=== PATIENT | female | born 1955 | race Caucasian/White ===

== ENCOUNTER 2016-10-15 08:30 | Outpatient (CLI) | payer OTHER | END 2016-10-15 08:31 | disposition home or self-care (01) | DX: E78.5 Hyperlipidemia, unspecified (principal); R74.8 Abnormal levels of other serum enzymes; E11.9 Type 2 diabetes mellitus without complications; D64.9 Anemia, unspecified; Z79.899 Other long term (current) drug therapy ==

== ENCOUNTER 2016-10-31 12:04 | Outpatient (CLI) | payer OTHER | END 2016-10-31 12:05 | disposition home or self-care (01) | DX: C56.9 Malignant neoplasm of unspecified ovary (principal) ==

== ENCOUNTER 2016-11-08 08:46 | Outpatient (CLI) | payer OTHER ==
--- NOTE | 2016-11-11 13:13 | Mammography Report ---
DIGITAL SCREENING MAMMOGRAM: 11/08/2016 CLINICAL INDICATION: A 61-year-old with family history of breast cancer for screening. COMPARISON: 06/2014, 10/2012, 07/2011. TECHNIQUE: Routine CC and MLO projections were obtained of the breasts. FINDINGS: Parenchymal tissue within the breasts is predominantly fatty replaced. There are no domina nt masses, suspicious microcalcifications, or secondary signs of malignancy. In comparison to the pre vious studies, there are no significant changes. IMPRESSION: NO MAMMOGRAPHIC EVIDENCE OF MALIGNANCY. NO SIGNIFICANT INTERVAL CHANGES. RECOMMENDATION: Screening mammography is recommended annually. BIRADS category 1 - negative. STANDARD QUALIFYING STATEMENTS 1. This examination was reviewed with the aid of Computed-Aided Detection (CAD). 2. A negative or benign imaging report should not delay biopsy if clinically suspicious findings are present. Consider surgical consultation if warranted. More than 5% of cancers are not identified by i maging. 3. Dense breasts may obscure an underlying neoplasm. JOB #: [id number] EXT JOB #:[id number]
== END 2016-11-08 08:47 | disposition home or self-care (01) ==
LOC: DI 08:46
PROVIDERS: ATTEND Physician Assistant Medical
DX: Z12.31 Encounter for screening mammogram for malignant neoplasm of breast (principal); Z80.3 Family history of malignant neoplasm of breast
CPT/HCPCS: 77067

== ENCOUNTER 2016-11-20 08:11 | Outpatient (CLI) | payer OTHER ==
--- NOTE | 2016-11-20 11:59 | DEXA Report ---
DEXA SCAN: 11/20/2016 CLINICAL HISTORY: Postmenopausal. TECHNIQUE: Dual energy x-ray absorptiometry (DXA) was performed on a [employer] system. Regions measured are the AP spine, femoral neck, and, if needed, forearm. COMPARISON: None. In accordance with the International Society for Clinical Densitometry (ISCD) guidelines, data from previous exams may be reanalyzed using current recommendations and techniques. This is done to allow a more accurate basis for comparison with the current study. FINDINGS: L1 through L4 T-score is 1.4. This is within normal limits according World Health Organization guidelines. Femoral neck T-score is -2.0. This is compatible with osteopenia according to World Health Organization guidelines. Total hip T-score is -1.6. This is compatible with osteopenia according to World Health Organization guidelines. The data for the lumbar spine is as follows: REGION BMD (g/cm/cm) T-SCORE Z-SCORE L1 1.214 0.7 0.7 L2 1.388 1.6 1.6 L3 1.436 2.0 2.0 L4 1.335 1.1 1.2 TOTAL 1.343 1.4 1.4 NOTE: All evaluable vertebrae are used for classification. The data for the hip is as follows: REGION BMD (g/cm/cm) T-SCORE Z-SCORE Neck 0.755 -2.0 -1.5 TOTAL 0.809 -1.6 -1.5 NOTE: The femoral neck or total proximal femur, whichever is lowest, is used for classification. IMPRESSION: THE WHO CLASSIFICATION BASED ON THE INTERNATIONAL REFERENCE STANDARD IS OSTEOPENIA. THE FRACTURE RISK IS INCREASED. RECOMMENDATION: Patients with diagnosis of osteoporosis or osteopenia should have regular bone mineral density assessment. For those eligible for Medicare, routine testing is allowed once every 2 years. Testing frequency can be increased for patients who have rapidly progressing disease or for those who are receiving medical therapy to restore bone mass. COMMENT: World Health Organization (WHO) definitions for osteoporosis and osteopenia: NORMAL BMD: T-score at -1.0 or higher, fracture risk is low. OSTEOPENIA BMD: T-score between -1.0 and -2.5, fracture risk is increased. OSTEOPOROSIS BMD: T-score at -2.5 or lower, fracture risk high. National Osteoporosis Foundation recommends: 1. Obtain adequate dietary calcium (at least 1200 mg per day) and vitamin D (400 -800 international units per day). 2. Participate, as appropriate, in regular weightbearing and muscle- strengthening exercise. 3. Avoid tobacco use and reduce alcohol and caffeine intake. 4. For more detailed information see the website at www.NOF.org. MTDD
== END 2016-11-20 08:12 | disposition home or self-care (01) ==
LOC: DI 08:11
PROVIDERS: ATTEND Physician Assistant Medical
DX: M85.88 Other specified disorders of bone density and structure, other site (principal)
CPT/HCPCS: 77080

== ENCOUNTER 2016-12-12 10:45 | Outpatient (CLI) | payer OTHER | END 2016-12-12 10:46 | disposition home or self-care (01) | LOC: LAB.WCP 10:45 | PROVIDERS: ATTEND Physician Assistant Medical | DX: N39.0 Urinary tract infection, site not specified (principal) | CPT/HCPCS: 87086 ==

== ENCOUNTER 2017-04-10 10:20 | Outpatient (CLI) | payer OTHER ==
[2017-04-10 13:32] LABS: BASOPHILS % (AUTO) 0.4 %; EOSINOPHILS # (AUTO) 0.2 10^3/uL (0.0-0.7); EOSINOPHILS % (AUTO) 3.1 %; HCT - HEMATOCRIT 41.8 % (37.0-47.0); HGB - HEMOGLOBIN 13.9 g/dL (12.0-16.0); LYMPHOCYTES # (AUTO) 1.2 10^3/uL (1.5-3.5); LYMPHOCYTES % (AUTO) 16.1 %; MEAN CORPUSCULAR HEMOGLOBIN 28.3 pg (27.0-31.0); MEAN CORPUSCULAR HGB CONC 33.3 g/dL (32.0-36.0); MEAN CORPUSCULAR VOLUME 84.9 fL (81.0-99.0); MEAN PLATELET VOLUME 10.3 fL (7.9-10.8); MONOCYTES # (AUTO) 0.5 10^3/uL (0.0-1.0); MONOCYTES % (AUTO) 6.3 %; NEUTROPHILS # (AUTO) 5.3 10^3/uL (1.5-6.6); NEUTROPHILS % (AUTO) 74.1 %; NUCLEATED RED BLOOD CELLS AUTO 0.1 /100WBC; RED BLOOD COUNT 4.92 10^6/uL (4.20-5.40); RED CELL DISTRIBUTION WIDTH 14.7 % (12.0-15.0); UNCORRECTED WHITE BLOOD COUNT 7.2 x10^3/uL; WHITE BLOOD COUNT 7.2 x10^3/uL (4.8-10.8)
[2017-04-10 13:41] LABS: ALBUMIN/GLOBULIN RATIO 1.3 (1.0-2.2); BILIRUBIN,TOTAL 0.5 mg/dL (0.2-1.0); CALCIUM 9.3 mg/dL (8.5-10.3); CREATININE 1.1 mg/dL (0.4-1.0); POTASSIUM 4.5 mmol/L (3.5-5.0); TOTAL PROTEIN 7.7 g/dL (6.7-8.2)
== END 2017-04-10 10:21 | disposition home or self-care (01) ==
LOC: LAB.WCP 10:20
PROVIDERS: ATTEND Physician Assistant Medical
DX: K76.0 Fatty (change of) liver, not elsewhere classified (principal); Z51.81 Encounter for therapeutic drug level monitoring; Z79.899 Other long term (current) drug therapy
CPT/HCPCS: 36415; 80053; 85025

== ENCOUNTER 2017-05-01 11:35 | Outpatient (CLI) | payer OTHER ==
[2017-05-01 19:49] LABS: BASOPHILS # (AUTO) 0.1 10^3/uL (0.0-0.1); BASOPHILS % (AUTO) 0.6 %; EOSINOPHILS # (AUTO) 0.5 10^3/uL (0.0-0.7); HCT - HEMATOCRIT 41.4 % (37.0-47.0); HGB - HEMOGLOBIN 13.3 g/dL (12.0-16.0); LYMPHOCYTES # (AUTO) 1.4 10^3/uL (1.5-3.5); LYMPHOCYTES % (AUTO) 12.3 %; MEAN CORPUSCULAR HEMOGLOBIN 28.1 pg (27.0-31.0); MEAN CORPUSCULAR HGB CONC 32.2 g/dL (32.0-36.0); MEAN CORPUSCULAR VOLUME 87.3 fL (81.0-99.0); MEAN PLATELET VOLUME 10.6 fL (7.9-10.8); MONOCYTES # (AUTO) 0.9 10^3/uL (0.0-1.0); MONOCYTES % (AUTO) 7.6 %; NEUTROPHILS # (AUTO) 8.6 10^3/uL (1.5-6.6); NEUTROPHILS % (AUTO) 75.5 %; RED BLOOD COUNT 4.74 10^6/uL (4.20-5.40); RED CELL DISTRIBUTION WIDTH 14.9 % (12.0-15.0); UNCORRECTED WHITE BLOOD COUNT 11.5 x10^3/uL; WHITE BLOOD COUNT 11.5 x10^3/uL (4.8-10.8)
[2017-05-01 20:38] LABS: ALBUMIN/GLOBULIN RATIO 1.2 (1.0-2.2); BILIRUBIN,TOTAL 0.7 mg/dL (0.2-1.0); CALCIUM 8.7 mg/dL (8.5-10.3); CREATININE 1.1 mg/dL (0.4-1.0); POTASSIUM 4.2 mmol/L (3.5-5.0); TOTAL PROTEIN 7.4 g/dL (6.7-8.2)
== END 2017-05-01 11:36 | disposition home or self-care (01) ==
LOC: LAB.WCP 11:35
PROVIDERS: ATTEND Physician Assistant Medical
DX: R79.9 Abnormal finding of blood chemistry, unspecified (principal); D69.6 Thrombocytopenia, unspecified; C56.9 Malignant neoplasm of unspecified ovary
CPT/HCPCS: 36415; 80053; 85025; 86304

== ENCOUNTER 2017-05-01 13:40 | Outpatient (CLI) | payer OTHER ==
--- NOTE | 2017-05-01 19:29 | XRAY Report ---
TWO VIEW CHEST: 05/01/2017 CLINICAL INDICATION: Acute bronchitis. COMPARISON: 01/04/2016 Frontal and lateral views of the chest demonstrate a normal cardiac silhouette. The lungs are hyperi nflated, but clear. No effusion or pneumothorax is present. IMPRESSION: HYPERINFLATION. NO EVIDENCE OF ACUTE CARDIOPULMONARY DISEASE. JOB #: [id number] EXT JOB #:[id number]
== END 2017-05-01 13:41 | disposition home or self-care (01) ==
LOC: DI 13:40
PROVIDERS: ATTEND Physician Assistant Medical
DX: J20.9 Acute bronchitis, unspecified (principal); R79.9 Abnormal finding of blood chemistry, unspecified; D69.6 Thrombocytopenia, unspecified; C56.9 Malignant neoplasm of unspecified ovary
CPT/HCPCS: 36415; 71020; 80053; 85025; 86304

== ENCOUNTER 2018-11-03 20:37 | Emergency (ER) | payer OTHER ==
[2018-11-03 20:47] VITALS: BP 161/97
--- NOTE | 2018-11-03 20:52 | ED Physician Documentation ---
PD HPI UPPER EXT INJURY - Stated complaint Stated Complaint: LT HAND LAC/INJ - Chief complaint Chief Complaint: Laceration - History obtained from History obtained from: Patient - History of Present Illness Location: Left, Finger (little finger dorsal MCP area) Type of injury: Laceration (she cut her hand while washing out a glass. No FB per patient. Has an avulsion of skin dorsal MCP, but main issue is that it keeps bleeding. No numbness nor weakness.) Where injury occurred: Home Timing - onset: Today Worsened by: Moving, Palpating Associated symptoms: No: Weakness, Numbness Contributing factors: No: Anticoagulated, Prior ortho surgery Review of Systems Skin: reports: Laceration (s) Neurologic: denies: Focal weakness, Numbness PD PAST MEDICAL HISTORY - Past Medical History Cardiovascular: Hypertension, High cholesterol Respiratory: Sleep apnea, Other Endocrine/Autoimmune: Type 2 diabetes GI: GERD, Diverticulitis : Other HEENT: None Psych: Depression Musculoskeletal: Osteoarthritis, Fibromyalgia, Osteopenia, Chronic back pain Derm: Eczema - Past Surgical History Past Surgical History: Yes General: Cholecystectomy Ortho: Arthroscopic surgery, 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, 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 - Present Medications Home Medications: Ambulatory Orders Medication Instructions Recorded Confirmed Albuterol Sulf [Ventolin Hfa 2 puffs INH Q4HR PRN 12/25/16 11/03/18 Inhaler] Ipratropium/Albuterol Sulfate 1 amp NEB QID PRN 12/25/16 11/03/18 [Iprat-Albut 0.5-3(2.5) mg/3 ml] Losartan Potassium 25 mg PO DAILY 12/25/16 11/03/18 Metformin HCl [Glucophage Xr] 2 tab PO DAILY 12/25/16 11/03/18 - Allergies Allergies/Adverse Reactions: Allergies Allergy/AdvReac Type Severity Reaction Status Date / Time amoxicillin Allergy Hives Verified 11/03/18 20:47 latex Allergy Hives Verified 11/03/18 20:47 lisinopril Allergy Unknown Verified 11/03/18 20:47 sulfamethoxazole Allergy Hives Verified 11/03/18 20:47 [From ] trimethoprim [From ] Allergy Hives Verified 11/03/18 20:47 - Social History Does the pt smoke?: No Smoking Status: Never smoker Does the pt drink ETOH?: Yes Does the pt have substance abuse?: No - Immunizations Immunizations are current?: Yes - POLST Patient has POLST: No PD ED PE NORMAL - Vitals Vital signs reviewed: Yes - General General: Alert and oriented X 3, No acute distress, Well developed/nourished - Derm Derm: Normal color, Warm and dry - Extremities Extremities: Other (The right little finger dorsally on the ulnar side of the MCP shows a 1 cm diameter avulsion with the central part being full-thickness. It does expose the underlying tendon but there is no laceration of the tendon. She has good sensation color and capillary refill in the finger. She has full extension without any pain. Examination of the wound through full range of motion of the finger does not show any tendon injury and there is no foreign body. There is slight oozing of blood from capillaries in the edges.) - Neuro Neuro: Alert and oriented X 3, No motor deficit, No sensory deficit Results - Vitals Vitals: Vital Signs - 24 hr 11/03/18 20:39 Temperature 36.3 C L Heart Rate 100 Respiratory 16 Rate Blood Pressure 161/97 H O2 Saturation 96 Oxygen O2 Source Room air Procedures - Laceration (location) dorsal left little finger MCP Length in cm: 1 Wound type: Into subcut fat, Clean, Other (rounded avulsion of skin) Neurovascular status: Sensory intact, Motor intact, Vascular intact Tendon involvement: Tendon intact (it is exposed though, but not injured) Anesthesia: Lidocaine 2% Wound Preparation: Irrigated copiously NS, Wound explored, To the base. No: FB identified Skin layer closure: Nylon, Interrupted, Size #-0 - enter number (4), Sutures - enter # (6) Other: Patient tolerated well, No complications, Neurovascular intact, Dressing applied, Tetanus UTD Complexity: Simple PD MEDICAL DECISION MAKING - ED course Complexity details: considered differential (The wound is small but it does expose the underlying tendon and as such it should be closed to promote better healing. I discussed this with her and that it will create a slight dogear at one corner and she is aware of the benefits of suturing at.), d/w patient Departure - Departure Disposition: 01 Home, Self Care Clinical Impression: Finger laceration Qualifiers: Encounter type: initial encounter Finger: little finger Damage to nail status: without damage Foreign body presence: without foreign body Laterality: left Qualified Code(s): S61.217A - Laceration without foreign body of left little finger without damage to nail, initial encounter Condition: Stable Record reviewed to determine appropriate education?: Yes Instructions: ED Laceration Hand Follow-Up: Ruthie Lima PA-C [Primary Care Provider] - Comments: It is okay to wash and shower. Clean off the wound twice a day with soap and water, or peroxide and water. Apply some antibiotic ointment to it to keep it moist. Also to watch for signs of infection such as purulence, redness or in creasing pain. Return to your primary care or the ER at the specified time for suture removal. Suture removal 8 to 10 days. Discharge Date/Time: 11/03/18 21:30
== END 2018-11-03 21:30 | disposition home or self-care (01) ==
LOC: ED 20:37
DX: S61.217A Laceration without foreign body of left little finger without damage to nail, initial encounter (principal); W25.XXXA Contact with sharp glass, initial encounter; Y93.G1 Activity, food preparation and clean up; Y92.000 Kitchen of unspecified non-institutional (private) residence as the place of occurrence of the external cause; I10 Essential (primary) hypertension; E11.9 Type 2 diabetes mellitus without complications; Z79.84 Long term (current) use of oral hypoglycemic drugs
CPT/HCPCS: 12001; 99282; 99283

== ENCOUNTER 2018-11-12 09:57 | Outpatient (CLI) | payer OTHER ==
[2018-11-12 14:09] LABS: BASOPHILS % (AUTO) 0.6 %; EOSINOPHILS # (AUTO) 0.2 10^3/uL (0.0-0.7); EOSINOPHILS % (AUTO) 3.3 %; HGB - HEMOGLOBIN 14.3 g/dL (12.0-16.0); LYMPHOCYTES # (AUTO) 1.4 10^3/uL (1.5-3.5); LYMPHOCYTES % (AUTO) 19.3 %; MEAN CORPUSCULAR HEMOGLOBIN 28.1 pg (27.0-31.0); MEAN CORPUSCULAR HGB CONC 32.5 g/dL (32.0-36.0); MEAN CORPUSCULAR VOLUME 86.6 fL (81.0-99.0); MEAN PLATELET VOLUME 10.1 fL (7.9-10.8); MONOCYTES # (AUTO) 0.5 10^3/uL (0.0-1.0); MONOCYTES % (AUTO) 6.6 %; NEUTROPHILS # (AUTO) 5.1 10^3/uL (1.5-6.6); NEUTROPHILS % (AUTO) 70.2 %; PLT - PLATELET COUNT 193 10^3/uL (130-450); RED BLOOD COUNT 5.09 10^6/uL (4.20-5.40); RED CELL DISTRIBUTION WIDTH 14.9 % (12.0-15.0); WHITE BLOOD COUNT 7.2 x10^3/uL (4.8-10.8)
[2018-11-12 14:33] LABS: ALBUMIN 4.2 g/dL (3.2-5.5); ALBUMIN/GLOBULIN RATIO 1.3 (1.0-2.2); ALKALINE PHOSPHATASE 118 IU/L (42-121); ALT ALANINE AMINOTRANSFERASE 37 IU/L (10-60); AST ASPARTATE AMINOTRANSFERASE 31 IU/L (10-42); BILIRUBIN,TOTAL 0.5 mg/dL (0.2-1.0); BUN - BLOOD UREA NITROGEN 19 mg/dL (6-20); CALCIUM 9.2 mg/dL (8.5-10.3); CARBON DIOXIDE - CO2 22 mmol/L (21-32); CHLORIDE 106 mmol/L (101-111); CHOL/HDL RATIO 3.4 (<4.4); CHOLESTEROL 205 mg/dL; GFR - MDRD 56 (>89); GLUCOSE 182 mg/dL (70-100); HDL CHOLESTEROL 61 mg/dL; LDL CHOLESTEROL,CALCULATED 121 mg/dL; SODIUM 139 mmol/L (135-145); TOTAL PROTEIN 7.5 g/dL (6.7-8.2); VLDL CHOLESTEROL 23 mg/dL
== END 2018-11-12 09:58 | disposition home or self-care (01) ==
LOC: LAB.WCP 09:57
PROVIDERS: ATTEND Physician Assistant Medical
DX: E11.9 Type 2 diabetes mellitus without complications (principal); D64.9 Anemia, unspecified
CPT/HCPCS: 36415; 80053; 80061; 81599; 83036; 83721; 84443; 85025

== ENCOUNTER 2018-12-06 10:43 | Outpatient (CLI) | payer OTHER | END 2018-12-06 10:44 | disposition home or self-care (01) | LOC: DI 10:43 | PROVIDERS: ATTEND Physician Assistant Medical | DX: C56.9 Malignant neoplasm of unspecified ovary (principal) | CPT/HCPCS: 36415; 86304 ==

== ENCOUNTER 2018-12-06 10:44 | Outpatient (CLI) | payer OTHER ==
--- NOTE | 2018-12-07 02:12 | Ultrasound Report ---
Reason: SOFT TISSUE MASS,OVARIAN CANCER Procedure Date: 12/06/2018 Accession Number: [id number] / [id number] Procedure: US - Pelvic w/Transvaginal CPT Code: FULL RESULT: EXAM: PELVIC WITH TRANSVAGINAL ULTRASOUND EXAM DATE: 12/06/2018 11:30 AM. CLINICAL HISTORY: Bloating, feeling full for 1 month. History of right ovarian cancer in 2013. 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 and oophorectomy. SOFT TISSUE MASS, OVARIAN CANCER. COMPARISON: ABDOMEN/PELVIS W/ 05/27/2013 9:31 AM. TECHNIQUE: Realtime transabdominal and transvaginal pelvic scans performed with static image documentation. FINDINGS: Status post hysterectomy and oophorectomy. No abnormalities are seen. No evidence for pelvic mass. No free fluid or fluid collections. IMPRESSION: Status post hysterectomy and oophorectomy. No abnormalities are seen. No evidence for pelvic mass. No free fluid or fluid collections. RADIA
--- NOTE | 2018-12-07 08:43 | Ultrasound Report ---
Reason: SOFT TISSUE MASS Procedure Date: 12/06/2018 Accession Number: [id number] / [id number] Procedure: US - Ext Limited Non Vascular CPT Code: FULL RESULT: EXAM: RIGHT UPPER EXTREMITY ULTRASOUND - LIMITED EXAM DATE: 12/06/2018 12:00 PM. CLINICAL HISTORY: Soft tissue mass. COMPARISON: EXT LIMITED NON VASCULAR 01/19/2016. TECHNIQUE: Real-time scanning was performed with static images obtained. FINDINGS: Limited grayscale and color Doppler ultrasound of the posterior upper right arm is performed. In the subcutaneous adipose tissues superficial to the triceps musculature is a 9.2 cm x 4.1 cm mass without evidence of violation of tissue planes into the muscular compartment and in echotexture similar to surrounding subcutaneous adipose tissue, most suggestive of a lipoma. IMPRESSION: Fatty mass as described. Lipoma and the rare entity of liposarcoma are radiologically indistinguishable. RADIA
== END 2018-12-06 10:45 | disposition home or self-care (01) ==
LOC: DI 10:44
PROVIDERS: ATTEND Physician Assistant Medical
DX: E65 Localized adiposity (principal); Z85.43 Personal history of malignant neoplasm of ovary; Z90.710 Acquired absence of both cervix and uterus; Z90.722 Acquired absence of ovaries, bilateral
CPT/HCPCS: 36415; 76830; 76856; 76882; 86304

== ENCOUNTER 2018-12-12 11:53 | Outpatient (CLI) | payer OTHER ==
--- NOTE | 2018-12-14 05:07 | XRAY Report ---
Reason: STERNAL CHEST PAIN Procedure Date: 12/12/2018 Accession Number: [id number] / [id number] Procedure: XR - Ribs w/PA Chest LT CPT Code: FULL RESULT: EXAM: LEFT RIB RADIOGRAPHY EXAM DATE: 12/12/2018 12:06 PM. CLINICAL HISTORY: Sternal chest pain. COMPARISON: CHEST 2 VIEW PA/LAT 05/01/2017 1:45 PM. TECHNIQUE: 1 view of the chest and 2 views of the ribs. FINDINGS: Bones: Normal. No fracture or bone lesion. Lungs: No focal opacities. No pneumothorax. No pleural effusions. Mediastinum: Heart and mediastinal contours are unremarkable. Other: Moderate arthritic changes of the right shoulder. IMPRESSION: Negative chest and rib radiography. RADIA
== END 2018-12-12 11:54 | disposition home or self-care (01) ==
LOC: DI 11:53
PROVIDERS: ATTEND Physician Assistant Medical
DX: R07.89 Other chest pain (principal)

== ENCOUNTER 2019-01-14 14:33 | Outpatient (CLI) | payer OTHER ==
--- NOTE | 2019-01-14 20:25 | XRAY Report ---
Reason: LEFT ARM PAIN Procedure Date: 01/14/2019 Accession Number: [id number] / [id number] Procedure: WCP - Forearm LT CPT Code: FULL RESULT: EXAM: LEFT FOREARM RADIOGRAPHY EXAM DATE: 01/14/2019 03:01 PM. CLINICAL HISTORY: Left arm pain. Pain in midshaft of forearm. No known injury. COMPARISON: ELBOW 3 VIEW LT 08/21/2014 7:53 PM. TECHNIQUE: 2 views. FINDINGS: Bones: There is new absence of the radial head which presumably is due to surgical resection, but correlation with clinical/surgical history is recommended. Lucency within the proximal most aspect of the radius, in the region of the radial neck, may be postoperative in nature. Erosive or destructive change is not definitely excluded and clinical correlation recommended. No evidence of fracture or other definite bone lesions. Joints: Elbow degenerative joint disease appears progressed. No subluxation. No definite joint effusion. Degenerative disease of the wrist demonstrated, greatest at the first carpometacarpal joint. Soft Tissues: Normal. No soft tissue swelling. IMPRESSION: 1. Absence of the radial head (new compared with 08/21/2014) and lucency within the radial neck region is presumably postoperative in nature but correlation with the clinical and surgical history is recommended. 2. Elbow and wrist degenerative disease. RADIA
== END 2019-01-14 23:59 | disposition home or self-care (01) ==
LOC: DI.WCP 14:33
PROVIDERS: ATTEND Family Medicine
DX: M19.022 Primary osteoarthritis, left elbow (principal); M19.032 Primary osteoarthritis, left wrist

== ENCOUNTER 2019-06-18 16:57 | Emergency (ER) | payer OTHER ==
--- NOTE | 2019-06-18 20:29 | ED Physician Documentation ---
PD HPI SKIN - Stated complaint Stated Complaint: LUMP RT SIDE OF HEAD - Chief complaint Chief Complaint: Wound - History obtained from History obtained from: Patient - History of Present Illness Timing - onset: How many days ago (3) Timing - duration: Days (3) Timing - details: Gradual onset, Constant Pain level now: 8 Location: Scalp Quality / character: Painful, Raised, Swelling Worsened by (comment): COMMENT (palpation) Associated symptoms: No: Fever Similar symptoms before: Has not had sx before Recently seen: Not recently seen - Additional information Additional information: c/o painful swelling, "lump" (per patient) on right occipital scalp x 3 days. 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, 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, 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, 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 - Present Medications Home Medications: Ambulatory Orders Medication Instructions Recorded Confirmed Losartan Potassium 50 mg PO DAILY 12/25/16 02/19/19 Metformin HCl [Glucophage Xr] 2 tab PO DAILY 12/25/16 02/19/19 Atorvastatin Calcium 10 mg PO QPM 02/11/19 02/19/19 Tramadol HCl 50 mg PO BID PRN 02/11/19 02/19/19 HYDROcod/ACETAM 5/325 [Orange 5/325] 1 each PO Q4H #5 tablet 02/19/19 Doxycycline Hyclate 100 mg PO BID #20 capsule 06/18/19 - Allergies Allergies/Adverse Reactions: Allergies Allergy/AdvReac Type Severity Reaction Status Date / Time amoxicillin Allergy Hives Verified 06/18/19 17:14 latex Allergy Hives Verified 06/18/19 17:14 liraglutide [From Victoza] Allergy Unknown Verified 06/18/19 17:14 sulfamethoxazole Allergy Hives Verified 06/18/19 17:14 [From Septra] trimethoprim [From Septra] Allergy Hives Verified 06/18/19 17:14 lisinopril AdvReac Unknown Verified 06/18/19 17:14 - Social History Does the pt smoke?: No Smoking Status: Never smoker Does the pt drink ETOH?: Yes Does the pt have substance abuse?: No - Immunizations Immunizations are current?: Yes - POLST Patient has POLST: No PD ED PE NORMAL - Vitals Vital signs reviewed: Yes - General General: Alert and oriented X 3, No acute distress, Well developed/nourished PD ED PE EXPANDED - HEENT HEENT Visual: 1 - swelling (small (1cm diameter) swelling, tenderness, with faint surrounding erythema), tenderness Results - Vitals Vitals: Vital Signs - 24 hr 06/18/19 17:03 Temperature 37 C Heart Rate 120 H Respiratory 18 Rate Blood Pressure 174/70 H O2 Saturation 100 Oxygen O2 Source Room air PD MEDICAL DECISION MAKING - ED course Complexity details: considered differential, d/w patient Departure - Departure Disposition: 01 Home, Self Care Clinical Impression: Cellulitis Condition: Good Instructions: ED Staph Infec Abx Tx Only, ED Infec Skin Cellulitis Follow-Up: Ruthie Lima PA-C [Primary Care Provider] - (3-4 days if not improving) Prescriptions: Doxycycline Hyclate 100 mg PO BID #20 capsule
[2019-06-18] MEDS ORDERED: DOXYCYCLINE 100 MG TABLET PO STA (20:45)
[2019-06-18 20:56] VITALS: BP 150/70
== END 2019-06-18 20:54 | disposition home or self-care (01) ==
LOC: ED 16:57
DX: L03.811 Cellulitis of head [any part, except face] (principal); I10 Essential (primary) hypertension; E11.9 Type 2 diabetes mellitus without complications; Z79.84 Long term (current) use of oral hypoglycemic drugs
CPT/HCPCS: 99282; 99283; A9270

== ENCOUNTER 2020-01-25 14:45 | Outpatient (CLI) | payer OTHER ==
--- NOTE | 2020-01-25 15:35 | XRAY Report ---
PROCEDURE: Elbow 3 View LT INDICATIONS: LEFT ARM PAIN TECHNIQUE: 3 views of the elbow were acquired. COMPARISON: None FINDINGS: Bones: There is deformity of the proximal radius with nonvisualization of the radial head. No suspici ous bony lesions. Soft tissues: No elbow joint effusion. No suspicious soft tissue calcifications. IMPRESSION: Presumed postsurgical proximal radial head changes. No visualized acute fracture or dislocation. [place] aurora, occult injury cannot be excluded. Recommend short interval imaging follow-up in 7-10 days as cli nically indicated for additional evaluation. Reviewed by: Stephanie Leon MD on 01/25/2020 3:33 PM PDT Approved by: Stephanie Leon MD on 01/25/2020 3:33 PM PDT Station ID: [id number]
== END 2020-01-25 14:46 | disposition home or self-care (01) ==
LOC: DI.WCP 14:45
PROVIDERS: ATTEND Physician Assistant Medical
DX: M79.602 Pain in left arm (principal)

== ENCOUNTER 2020-02-15 12:49 | Outpatient (CLI) | payer OTHER ==
--- NOTE | 2020-02-15 14:09 | DEXA Report ---
PROCEDURE: Dexa Spine and/or Hip INDICATIONS: POSTMENOPAUSAL TECHNIQUE: Dual energy x-ray absorptiometry (DXA) was performed on a [employer] System. Regions measur ed are the AP Spine, femoral neck, and if needed forearm. COMPARISON: None. FINDINGS: Lumbar Spine: Bone Mineral Density 1.285 g/cm/cm,T score 0.9, compared to 1.4. Normal bone density. Left Hip: Bone Mineral Density 0.835 g/cm/cm,T score -1.4, compared to -1.6. Mild osteopenia. Left Femoral Neck: Bone Mineral Density 0.781 g/cm/cm, T score -1.8, compared to -2.0. Moderate osteopenia. (T score greater or equal to -1.0: NORMAL) (T score from -1.1 to -2.4: OSTEOPENIA) (T score less than or equal to -2.5 to: OSTEOPOROSIS) Impression: Minimally improved moderate osteopenia in the left hip and femoral neck. Patients with diagnosis of osteoporosis or osteopenia should have regular bone mineral density assess ment. For those eligible for Medicare, routine testing is allowed once every 2 years. Testing frequ ency can be increased for patients who have rapidly progressing disease or for those who are receivin g medical therapy to restore bone mass. Reviewed by: Stephanie Leon MD on 02/15/2020 2:08 PM PDT Approved by: Stephanie Leon MD on 02/15/2020 2:08 PM PDT Station ID: [id number]
== END 2020-02-15 12:50 | disposition home or self-care (01) ==
LOC: DI 12:49
PROVIDERS: ATTEND Physician Assistant Medical
DX: M85.89 Other specified disorders of bone density and structure, multiple sites (principal)
CPT/HCPCS: 77080

== ENCOUNTER 2020-09-14 08:45 | Outpatient (CLI) | payer OTHER ==
[2020-09-14 12:35] LABS: ALBUMIN 4.1 g/dL (3.2-5.5); ALBUMIN/GLOBULIN RATIO 1.3 (1.0-2.2); ALKALINE PHOSPHATASE 142 IU/L (42-121); ALT ALANINE AMINOTRANSFERASE 49 IU/L (10-60); AST ASPARTATE AMINOTRANSFERASE 37 IU/L (10-42); BILIRUBIN,TOTAL 0.8 mg/dL (0.2-1.0); BUN - BLOOD UREA NITROGEN 17 mg/dL (6-20); CALCIUM 9.5 mg/dL (8.5-10.3); CARBON DIOXIDE - CO2 30 mmol/L (21-32); CHLORIDE 99 mmol/L (101-111); CHOL/HDL RATIO 2.3 (<4.4); CHOLESTEROL 164 mg/dL; CREATININE 0.9 mg/dL (0.4-1.0); GFR - MDRD 63 (>89); GLUCOSE 204 mg/dL (70-100); HDL CHOLESTEROL 70 mg/dL; LDL CHOLESTEROL,CALCULATED 79 mg/dL; LDL/HDL RATIO 1.1 (<4.4); POTASSIUM 4.3 mmol/L (3.5-5.0); SODIUM 139 mmol/L (135-145); TOTAL PROTEIN 7.2 g/dL (6.7-8.2); TRIGLYCERIDES 76 mg/dL; VLDL CHOLESTEROL 15 mg/dL
[2020-09-14 12:59] LABS: ESTIMATED AVERAGE GLUCOSE 192 mg/dL (70-100); HEMOGLOBIN A1c% 8.3 % (4.27-6.07)
[2020-09-14 13:14] LABS: BASOPHILS % (AUTO) 0.5 %; EOSINOPHILS # (AUTO) 0.5 10^3/uL (0.0-0.7); EOSINOPHILS % (AUTO) 6.1 %; HCT - HEMATOCRIT 44.7 % (37.0-47.0); HGB - HEMOGLOBIN 14.1 g/dL (12.0-16.0); LYMPHOCYTES # (AUTO) 1.8 10^3/uL (1.5-3.5); LYMPHOCYTES % (AUTO) 23.4 %; MEAN CORPUSCULAR HEMOGLOBIN 28.8 pg (27.0-31.0); MEAN CORPUSCULAR HGB CONC 31.5 g/dL (32.0-36.0); MEAN CORPUSCULAR VOLUME 91.2 fL (81.0-99.0); MONOCYTES # (AUTO) 0.6 10^3/uL (0.0-1.0); MONOCYTES % (AUTO) 7.6 %; NEUTROPHILS # (AUTO) 4.6 10^3/uL (1.5-6.6); NEUTROPHILS % (AUTO) 62.1 %; PLT - PLATELET COUNT 202 10^3/uL (130-450); RED CELL DISTRIBUTION WIDTH 13.4 % (12.0-15.0); WHITE BLOOD COUNT 7.5 x10^3/uL (4.8-10.8)
== END 2020-09-14 23:59 | disposition home or self-care (01) ==
LOC: LAB.WCP 08:45
PROVIDERS: ATTEND Physician Assistant Medical
DX: I10 Essential (primary) hypertension (principal); E78.5 Hyperlipidemia, unspecified; E11.9 Type 2 diabetes mellitus without complications; K76.0 Fatty (change of) liver, not elsewhere classified; D64.9 Anemia, unspecified
CPT/HCPCS: 36415; 80053; 80061; 83036; 83721; 85025

== ENCOUNTER 2020-10-26 08:00 | Outpatient (CLI) | payer OTHER | END 2020-10-26 23:59 | disposition home or self-care (01) | LOC: LAB.WCP 08:00 | PROVIDERS: ATTEND Physician Assistant Medical | DX: C56.9 Malignant neoplasm of unspecified ovary (principal) | CPT/HCPCS: 36415; 86304 ==

== ENCOUNTER 2021-01-10 09:59 | Outpatient (CLI) | payer OTHER ==
[2021-01-10] MEDS ORDERED: IOVERSOL 320 50 ML VIAL ONE (10:18)
[2021-01-10] MEDS ORDERED: IOPAMIDOL-300 100 ML VIAL ONE (10:18)
[2021-01-10 10:28] LABS: BASOPHILS % (AUTO) 0.4 %; EOSINOPHILS # (AUTO) 0.1 10^3/uL (0.0-0.7); EOSINOPHILS % (AUTO) 1.8 %; HCT - HEMATOCRIT 43.6 % (37.0-47.0); HGB - HEMOGLOBIN 14.1 g/dL (12.0-16.0); LYMPHOCYTES % (AUTO) 13.2 %; MEAN CORPUSCULAR HEMOGLOBIN 28.4 pg (27.0-31.0); MEAN CORPUSCULAR HGB CONC 32.3 g/dL (32.0-36.0); MEAN CORPUSCULAR VOLUME 87.9 fL (81.0-99.0); MEAN PLATELET VOLUME 11.4 fL (7.9-10.8); MONOCYTES # (AUTO) 0.6 10^3/uL (0.0-1.0); MONOCYTES % (AUTO) 8.6 %; NEUTROPHILS # (AUTO) 5.5 10^3/uL (1.5-6.6); NEUTROPHILS % (AUTO) 75.6 %; PLT - PLATELET COUNT 203 10^3/uL (130-450); RED BLOOD COUNT 4.96 10^6/uL (4.20-5.40); RED CELL DISTRIBUTION WIDTH 13.3 % (12.0-15.0); WHITE BLOOD COUNT 7.3 x10^3/uL (4.8-10.8)
[2021-01-10 10:40] LABS: ALBUMIN 3.8 g/dL (3.2-5.5); BILIRUBIN,TOTAL 0.7 mg/dL (0.2-1.0); CALCIUM 8.9 mg/dL (8.5-10.3); CREATININE 0.9 mg/dL (0.4-1.0); POTASSIUM 4.8 mmol/L (3.5-5.0); TOTAL PROTEIN 7.5 g/dL (6.7-8.2)
[2021-01-10] MEDS ORDERED: IOVERSOL 320 50 ML VIAL PO ONE (13:16)
[2021-01-10] MEDS ORDERED: IOPAMIDOL-300 100 ML VIAL IVP ONE (13:17)
--- NOTE | 2021-01-10 14:40 | CT Report ---
PROCEDURE: CHEST W INDICATIONS: OVARIAN CA CONTRAST: IV CONTRAST: Isovue 300 ml: 100 PO CONTRAST: Optiray 320 ml50 TECHNIQUE: After the administration of intravenous contrast, images were acquired from the pulmonary apices to t he posterior costophrenic angles. Multiplanar MIP reformats were acquired. For radiation dose reduc tion, the following was used: automated exposure control, adjustment of mA and/or kV according to pa tient size. COMPARISON: CT abdomen and pelvis dated 05/27/2013, CT abdomen and pelvis from today. FINDINGS: Image quality: Excellent. Lungs and pleura: 3 mm pulmonary nodule, left lung base, image 212/3, not present on the study from 2 013. A 2 mm pulmonary nodule in the anterobasal segment of the right lower lobe as above the level of imaging from 2013. There are bilateral subtle patchy groundglass opacities, right greater than left, throughout the lung silverio, possibly representing viral pneumonia versus hypersensitivity pneumoniti s. No pleural effusions or pneumothorax. Central and peripheral airways are patent and normal in chip iber. Mediastinum: Heart size is normal. No pericardial effusion. No mediastinal or hilar adenopathy by size criteria. Thoracic aorta and central pulmonary arteries are normal in size. Esophagus is blaine l in caliber. No hiatal hernia. Bones and chest wall: No suspicious bony lesions. No vertebral body compression fractures. No axil skinny or supraclavicular adenopathy by size criteria. The thyroid is normal in size and there are no incidental findings.. Abdomen: Diffuse hepatic steatosis. Remote cholecystectomy. Resultant dilatation of the biliary tree. Dilatation is chronic. IMPRESSION: 1. There is a 3 mm pulmonary nodule in the left lung base which was not present in 2013. It is nonspe cific. It may potentially represent a small pulmonary metastatic lesion. 2. A 2 mm right lung pulmonary nodule is nonspecific. 3. Bilateral patchy groundglass opacities, right greater than left, possibly representing viral pneum onia versus hypersensitivity pneumonitis. Recommend check Covid 19 status. 4. Diffuse hepatic steatosis. Comment: Please refer to a separate report for CT abdomen and pelvis findings. CLINICAL RECOMMENDATION STATEMENTS: In patients <35 years with an ITN detected on CT, MRI, or extrathyroidal ultrasound, the Committee re commends further evaluation with dedicated thyroid ultrasound if the nodule is ?1 cm and has no suspi cious imaging features, and if the patient has normal life expectancy. In patients ?35 years with an ITN detected on CT, MRI, or extrathyroidal ultrasound, the Committee re commends further evaluation with dedicated thyroid ultrasound if the nodule is ?1.5 cm and has no ambreen picious imaging features, and if the patient has normal life expectancy. (ACR, 2014) Reviewed by: Mir Garcia MD on 01/10/2021 2:38 PM PDT Approved by: Mir Garcia MD on 01/10/2021 2:38 PM PDT Station ID: [id number]
--- NOTE | 2021-01-10 15:45 | CT Report ---
PROCEDURE: Abdomen/Pelvis W INDICATIONS: OVARIAN CA CONTRAST: IV CONTRAST: Isovue 300 ml: 100 PO CONTRAST: Optiray 320 ml50 TECHNIQUE: After the administration of IV and oral contrast, 5 mm thick sections acquired from the diaphragms to the symphysis. 5 mm thick coronal and sagittal reformats were acquired. For radiation dose reducti on, the following was used: automated exposure control, adjustment of mA and/or kV according to omar ent size. COMPARISON: Correlation is made with the accompanying chest CT, 1121. FINDINGS: Image quality: Excellent. ABDOMEN: Lung bases: Patchy bilateral interstitial type infiltrates are seen, which are better demonstrated on the accompanying chest CT . Heart size is normal. A small hiatal hernia is incidentally noted. Solid organs: Diffuse fatty liver infiltration can be seen. No focal liver lesions are seen. The liver is mildly p rominent. The spleen demonstrates normal size and demonstrates no focal abnormality. Presumed accesso ry splenule scanned be seen along the splenic hilum. A presumed accessory splenule can also be seen a nterior to the primary spleen, as on series 3 image 17. Gallbladder has been removed. Biliary system is mildly dilated for a postcholecystectomy patient had 16 mm. Pancreas enhances normally. No adre nal nodules. Kidneys demonstrate normal size and enhancement, without hydronephrosis. Peritoneum and bowel: Bowel loops demonstrate normal wall thickness and caliber. No free fluid or a ir. A normal appendix is incidentally noted. Nodes and vessels: No retroperitoneal or mesenteric adenopathy by size criteria. Aorta and inferior vena cava are normal in size. Miscellaneous: A mild fat-containing periumbilical hernia is seen. PELVIS: Genitourinary: Bladder wall thickness is normal. This patient is status post hysterectomy. No adnex al masses can be seen. Miscellaneous: No inguinal hernias or adenopathy. Bones: No suspicious bony lesions. No vertebral body compression fractures. Degenerative changes a re seen throughout, which are worst at the L5-S1 level. IMPRESSION: Status post hysterectomy. No kayden findings of metastatic disease can be seen. Presumed accessory splenules are seen. Much less likely given the appearance of these nodules would b e peritoneal metastatic disease. Please correlate with known patient history and any prior CT scans t hrough the region. Patchy interstitial infiltrates can be seen at the lung bases, which are highly suspicious for COVID pneumonia. Please see the accompanying chest CT report. Please correlate with known patient history a nd laboratory results. Status post cholecystectomy. The common bile duct is mildly dilated for a cholecystectomy patient at 16 mm. If clinically appropriate, please consider a dedicated MRCP for further evaluation (assuming t hat there is no contraindication). Incidental note is made of: Small hiatal hernia Fatty liver infiltration Fat-containing periumbilical hernia Normal appendix Focal L5-S1 degenerative change. Reviewed by: Gamaliel Garland MD on 01/10/2021 2:44 PM [facility] Approved by: Gamaliel Garland MD on 01/10/2021 2:44 PM ENRIQUE Station ID: [id number]
== END 2021-01-10 10:00 | disposition home or self-care (01) ==
LOC: DI 09:59
PROVIDERS: ATTEND Internal Medicine
DX: C56.9 Malignant neoplasm of unspecified ovary (principal); R91.8 Other nonspecific abnormal finding of lung field; K76.0 Fatty (change of) liver, not elsewhere classified
CPT/HCPCS: 36415; 71260; 74177; 80053; 85025; 86304; Q9967

== ENCOUNTER 2021-05-09 08:00 | Outpatient (CLI) | payer OTHER ==
[2021-05-09 13:24] LABS: ESTIMATED AVERAGE GLUCOSE 180 mg/dL (70-100); HEMOGLOBIN A1c% 7.9 % (4.27-6.07)
[2021-05-09 14:02] LABS: CREATININE 0.8 mg/dL (0.4-1.0); POTASSIUM 3.9 mmol/L (3.5-5.0)
== END 2021-05-09 23:59 ==
LOC: LAB.WCP 08:00
PROVIDERS: ATTEND Physician Assistant Medical
DX: E11.9 Type 2 diabetes mellitus without complications (principal)
CPT/HCPCS: 36415; 80048; 83036

== ENCOUNTER 2021-08-04 14:33 | Outpatient (CLI) | payer MEDICARE, OTHER ==
--- NOTE | 2021-08-04 15:51 | Ultrasound Report ---
PROCEDURE: Pelvic w/Transvaginal INDICATIONS: OVARIAN CA TECHNIQUE: Real-time scanning was performed of the pelvic organs, with image documentation. Additional endovagi nal scanning was necessary due to incomplete visualization of the adnexal and endometrial structures by transabdominal scanning. COMPARISON: None. FINDINGS: No pathologic free abdominal or pelvic fluid. Uterus: Uterus is surgically absent Ovaries: Surgically absent IMPRESSION: Uterus and ovaries are surgically absent. Otherwise unremarkable pelvic ultrasound. Reviewed by: Mir Garcia MD on 08/04/2021 2:50 PM [facility] Approved by: Mir Garcia MD on 08/04/2021 2:50 PM [facility] Station ID: [id number]
== END 2021-08-04 14:34 | disposition home or self-care (01) ==
LOC: DI 14:33
PROVIDERS: ATTEND Physician Assistant Medical
DX: C56.9 Malignant neoplasm of unspecified ovary (principal); Z90.710 Acquired absence of both cervix and uterus; Z90.722 Acquired absence of ovaries, bilateral

== ENCOUNTER 2022-05-04 06:56 | Outpatient (CLI) | payer MEDICARE, OTHER ==
[~2022-05-04 06:56] MED LIST: GADOBUTROL 15 MMOL/15 ML VIAL ONE
[2022-05-04] MEDS ORDERED: GADOBUTROL 15 MMOL/15 ML VIAL IVP ONE (10:47)
--- NOTE | 2022-05-06 11:00 | MRI Report ---
PROCEDURE: MRCP W/WO INDICATIONS: ABNORMAL FINDINGS ON DX IMAGING OF LIVER AND BILIA CONTRAST: 11 mL Gadavist. TECHNIQUE: Coronal ultra fast SE through the abdomen, axial 2-D spoiled GE in- and [id number], and breath-hold T2 FSE with fat saturation through the biliary system and pancreas. Oblique coronal and axial thin- slice ultra fast SE, radial thick-slab ultra fast SE centered on the extrahepatic bile ducts. COMPARISON: CT abdomen pelvis 02/27/2022, abdominal ultrasound 01/30/2022. CT abdomen pelvis 3. FINDINGS: Image quality: Adequate. Pancreas and biliary system: Biliary ductal dilation is present as seen previously. Extrahepatic duct measures approximately 25 mm at the pardeep hepatis. Intrahepatic ductal dilation present in both lobe s of the liver, not significantly changed since the recent CT, but increased since the 2013 exam. Ext rahepatic ductal dilation appears similar to minimally increased compared to the [address] CT. The extrahe patic bile duct tapers at the ampulla. No choledocholithiasis or other obstructing lesion identified. Pancreas is normal in morphology, without adjacent soft tissue edema. Pancreatic duct is normal in c aliber. Gallbladder is absent. Other solid organs: Liver and spleen are normal in size. There is diffuse hepatic signal loss on out -of-phase images compatible with hepatic steatosis. No adrenal nodules. Both kidneys are normal in s ize, without hydronephrosis. Nodes and vessels: No retroperitoneal or mesenteric adenopathy by size criteria. Aorta and inferior vena cava are normal in size. Bowel and peritoneum: Unenhanced bowel loops are normal in caliber. No free fluid. Lung bases: No basal pleural effusions. IMPRESSION: 1. Intrahepatic and extrahepatic biliary ductal dilation is present as before. No obstructing lesion is identified. Correlation with the patient's symptoms and laboratory markers for biliary obstruction may be helpful. If clinically indicated, endoscopic evaluation might be helpful to assess for etiolo gies such as papillary stenosis, an occult ampullary mass, or sphincter of Oddi dysfunction. 2. Hepatic steatosis. Reviewed by: Jeff Lieberman MD on 05/06/2022 10:59 AM PST Approved by: Jeff Lieberman MD on 05/06/2022 10:59 AM PST Station ID: [id number]
== END 2022-05-04 06:57 | disposition home or self-care (01) ==
LOC: DI 06:56
PROVIDERS: ATTEND Internal Medicine
DX: R93.2 Abnormal findings on diagnostic imaging of liver and biliary tract (principal); C56.9 Malignant neoplasm of unspecified ovary; R91.8 Other nonspecific abnormal finding of lung field; R74.8 Abnormal levels of other serum enzymes; K76.0 Fatty (change of) liver, not elsewhere classified
CPT/HCPCS: 74183; A9585

== ENCOUNTER 2022-08-10 09:38 | Outpatient (CLI) | payer MEDICARE, OTHER ==
[2022-08-10 19:40] LABS: ALBUMIN/GLOBULIN RATIO 1.1 (1.0-2.2); ALKALINE PHOSPHATASE 102 IU/L (42-121); ALT ALANINE AMINOTRANSFERASE 26 IU/L (10-60); AST ASPARTATE AMINOTRANSFERASE 23 IU/L (10-42); BILIRUBIN,TOTAL 0.6 mg/dL (0.2-1.0); BUN - BLOOD UREA NITROGEN 16 mg/dL (6-20); CALCIUM 9.3 mg/dL (8.5-10.3); CARBON DIOXIDE - CO2 28 mmol/L (21-32); CHLORIDE 100 mmol/L (101-111); CHOL/HDL RATIO 2.2 (<4.4); CHOLESTEROL 124 mg/dL; GFR - MDRD 55 (>89); GLUCOSE 361 mg/dL (70-100); HDL CHOLESTEROL 57 mg/dL; LDL CHOLESTEROL,CALCULATED 48 mg/dL; LDL/HDL RATIO 0.8 (<4.4); POTASSIUM 4.6 mmol/L (3.5-5.0); SODIUM 136 mmol/L (135-145); TOTAL PROTEIN 7.7 g/dL (6.7-8.2); TRIGLYCERIDES 96 mg/dL; VLDL CHOLESTEROL 19 mg/dL
[2022-08-10 19:47] LABS: MICROALBUM/CREATININE RATIO,UR 8.8 ug/mg (<30.0); MICROALBUMIN,URINE 0.5 mg/dL (0-300.0)
[2022-08-11 08:13] LABS: ESTIMATED AVERAGE GLUCOSE 315 mg/dL (70-100); HEMOGLOBIN A1c% 12.6 % (4.27-6.07)
== END 2022-08-10 09:39 | disposition home or self-care (01) ==
LOC: LAB.N 09:38
PROVIDERS: ATTEND Physician Assistant Medical
DX: E11.9 Type 2 diabetes mellitus without complications (principal); E78.5 Hyperlipidemia, unspecified
CPT/HCPCS: 36415; 80053; 80061; 82043; 82570; 83036; 83721

== ENCOUNTER 2022-12-26 10:06 | Outpatient (CLI) | payer MEDICARE, OTHER ==
[2022-12-26 12:48] LABS: CHOL/HDL RATIO 2.6 (<4.4); CHOLESTEROL 158 mg/dL; HDL CHOLESTEROL 61 mg/dL; LDL CHOLESTEROL,CALCULATED 76 mg/dL; LDL/HDL RATIO 1.2 (<4.4); TRIGLYCERIDES 107 mg/dL (48-352); VLDL CHOLESTEROL 21 mg/dL
[2022-12-26 13:20] LABS: ESTIMATED AVERAGE GLUCOSE 200 mg/dL (70-100); HEMOGLOBIN A1c% 8.6 % (4.27-6.07)
== END 2022-12-26 10:07 | disposition home or self-care (01) ==
LOC: LAB.N 10:06
PROVIDERS: ATTEND Physician Assistant Medical
DX: E11.9 Type 2 diabetes mellitus without complications (principal)
CPT/HCPCS: 36415; 80061; 83036; 83721

== ENCOUNTER 2023-03-29 09:55 | Outpatient (CLI) | payer MEDICARE, OTHER ==
[2023-03-29 21:28] LABS: CALCIUM 9.3 mg/dL (8.5-10.3); CREATININE 0.8 mg/dL (0.6-1.3); POTASSIUM 4.3 mmol/L (3.5-4.5)
[2023-03-30 09:35] LABS: ESTIMATED AVERAGE GLUCOSE 209 mg/dL (70-100); HEMOGLOBIN A1c% 8.9 % (4.27-6.07)
== END 2023-03-29 09:56 | disposition home or self-care (01) ==
LOC: LAB.N 09:55
PROVIDERS: ATTEND Physician Assistant Medical
DX: E11.9 Type 2 diabetes mellitus without complications (principal)
CPT/HCPCS: 36415; 80048; 83036

== ENCOUNTER 2023-05-16 16:42 | Emergency (ER) | payer MEDICARE, OTHER ==
[2023-05-16 17:01] VITALS: BP 173/86; O2SAT 98
--- NOTE | 2023-05-16 17:03 | ED Physician Documentation ---
PD HPI SKIN - Stated complaint Stated Complaint: SPOTS/REDNESS ON HEAD - Chief complaint Chief Complaint: Wound - History obtained from History obtained from: Patient (67-year-old with poorly controlled diabetes has had a painful rash on her left scalp for the last 3 days.) PD PAST MEDICAL HISTORY - Past Medical History Past Medical History: Yes Cardiovascular: Hypertension, High cholesterol Respiratory: Sleep apnea, CPAP use Endocrine/Autoimmune: Type 2 diabetes GI: GERD, Diverticulitis : None HEENT: None Psych: Depression Musculoskeletal: Osteoarthritis, Fibromyalgia, Osteopenia, Chronic back pain Derm: Rosacea - Past Surgical History Past Surgical History: Yes General: Cholecystectomy, Colonoscopy Ortho: Arthroscopic surgery, Other /STUDENT SERVICES REP: Tubal ligation, 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, Oophrectomy - Present Medications Home Medications: Ambulatory Orders Medication Instructions Recorded Confirmed Losartan Potassium 50 mg PO DAILY 12/25/16 10/23/22 Metformin HCl [Glucophage Xr] 2 tab PO DAILY 12/25/16 10/23/22 Atorvastatin Calcium 10 mg PO QPM 02/11/19 10/23/22 Tramadol HCl 50 mg PO BID PRN 02/11/19 10/23/22 HYDROcod/ACETAM 5/325 [Raymond 5/325] 1 each PO Q4H #5 tablet 02/19/19 10/23/22 Doxycycline Hyclate 100 mg PO BID #20 capsule 06/18/19 10/23/22 Glimepiride [Amaryl] 2 mg PO DAILY 10/23/22 10/23/22 Valacyclovir HCl [Valtrex] 1,000 mg PO TID #30 tablet 05/16/23 - Allergies Allergies/Adverse Reactions: Allergies Allergy/AdvReac Type Severity Reaction Status Date / Time amoxicillin Allergy Hives Verified 05/16/23 17:00 latex Allergy Hives Verified 05/16/23 17:00 liraglutide [From Victoza] Allergy Unknown Verified 05/16/23 17:00 sulfamethoxazole Allergy Hives Verified 05/16/23 17:00 [From Septra] trimethoprim [From Septra] Allergy Hives Verified 05/16/23 17:00 lisinopril AdvReac Unknown Verified 05/16/23 17:00 - Social History Does the pt smoke?: No Smoking Status: Never smoker Does the pt drink ETOH?: Yes Does the pt have substance abuse?: No - Immunizations Immunizations are current?: Yes - POLST Patient has POLST: No PD ED PE NORMAL - Vitals Vital signs reviewed: Yes - General General: Alert and oriented X 3, No acute distress - HEENT HEENT: PERRL, EOMI, Other (There is a patch of shingles in the left parietal scalp) - Neuro Neuro: Alert and oriented X 3, taker off drying kiln 2-12 intact Results - Vitals Vitals: Vital Signs - 24 hr 05/16/23 16:57 Temperature 36.7 C Heart Rate 101 H Respiratory 20 Rate Blood Pressure 173/86 H O2 Saturation 98 Oxygen O2 Source Room air Departure - Departure Disposition: Home, Self Care Clinical Impression: Shingles Condition: Good Record reviewed to determine appropriate education?: Yes Instructions: ED Shingles Prescriptions: Valacyclovir HCl [Valtrex] 1,000 mg PO TID #30 tablet Comments: You were seen today for a shingles attack on the left side of your scalp. I am prescribing antiviral medications. I am not prescribing steroids as it would make your diabetes worse. You should stay away from unimmunized folks or folks with no immune systems until the spots are all dried up and better. Return if worse. Forms: PCP List
== END 2023-05-16 17:08 | disposition home or self-care (01) ==
LOC: ED 16:42
DX: B02.9 Zoster without complications (principal); E11.65 Type 2 diabetes mellitus with hyperglycemia; Z79.84 Long term (current) use of oral hypoglycemic drugs
CPT/HCPCS: 99282; 99283

== ENCOUNTER 2023-06-28 09:20 | Outpatient (CLI) | payer MEDICARE, OTHER ==
[2023-06-28 09:47] LABS: ESTIMATED AVERAGE GLUCOSE 220 mg/dL (70-100); HEMOGLOBIN A1c% 9.3 % (4.27-6.07)
[2023-06-28 09:55] LABS: ALBUMIN 3.5 g/dL (3.2-5.5); ALKALINE PHOSPHATASE 321 IU/L (42-121); ALT ALANINE AMINOTRANSFERASE 105 IU/L (10-60); AST ASPARTATE AMINOTRANSFERASE 83 IU/L (10-42); BILIRUBIN,TOTAL 1.1 mg/dL (0.2-1.0); BUN - BLOOD UREA NITROGEN 17 mg/dL (6-20); CARBON DIOXIDE - CO2 25 mmol/L (21-32); CHLORIDE 100 mmol/L (101-111); CHOL/HDL RATIO 3.5 (<4.4); CHOLESTEROL 140 mg/dL; CREATININE 0.9 mg/dL (0.6-1.3); GFR - MDRD 63 (>89); GLUCOSE 229 mg/dL (74-104); HDL CHOLESTEROL 40 mg/dL; LDL CHOLESTEROL,CALCULATED 76 mg/dL; LDL/HDL RATIO 1.9 (<4.4); POTASSIUM 4.1 mmol/L (3.5-4.5); SODIUM 133 mmol/L (135-145); TOTAL PROTEIN 7.1 g/dL (6.4-8.9); TRIGLYCERIDES 120 mg/dL (48-352); VLDL CHOLESTEROL 24 mg/dL
== END 2023-06-28 09:21 | disposition home or self-care (01) ==
LOC: LAB 09:20
PROVIDERS: ATTEND Physician Assistant Medical
DX: E11.9 Type 2 diabetes mellitus without complications (principal)
CPT/HCPCS: 36415; 80053; 80061; 83036; 83721

== ENCOUNTER 2023-07-10 14:04 | Outpatient (CLI) | payer MEDICARE, OTHER ==
--- NOTE | 2023-07-10 15:45 | XRAY Report ---
PROCEDURE: Elbow 1-2V LT INDICATIONS: LEFT ELBOW PAIN TECHNIQUE: 3 views of the elbow were acquired. COMPARISON: None FINDINGS: Bones: Prior resection of the radial head remains unchanged from the prior exam. No acute findings. Soft tissues: No elbow joint effusion. No suspicious soft tissue calcifications. IMPRESSION: Arthritic changes at the elbow without joint effusion. Prior resection of the radial head Reviewed by: Beau Trejo MD on 07/10/2023 2:44 PM [facility] Approved by: Beau Trejo MD on 07/10/2023 2:44 PM [facility] Station ID: [id number]
== END 2023-07-10 14:05 | disposition home or self-care (01) ==
LOC: DI 14:04
PROVIDERS: ATTEND Physician Assistant Medical
DX: M19.022 Primary osteoarthritis, left elbow (principal)

== ENCOUNTER 2023-09-27 09:34 | Outpatient (CLI) | payer MEDICARE, OTHER ==
[2023-09-27 10:06] LABS: ALBUMIN 3.8 g/dL (3.2-5.5); ALBUMIN/GLOBULIN RATIO 1.2 (1.0-2.2); ALKALINE PHOSPHATASE 446 IU/L (42-121); ALT ALANINE AMINOTRANSFERASE 140 IU/L (10-60); AST ASPARTATE AMINOTRANSFERASE 129 IU/L (10-42); BILIRUBIN,TOTAL 1.2 mg/dL (0.2-1.0); BUN - BLOOD UREA NITROGEN 13 mg/dL (6-20); CALCIUM 9.6 mg/dL (8.5-10.3); CARBON DIOXIDE - CO2 29 mmol/L (21-32); CHLORIDE 100 mmol/L (101-111); CHOL/HDL RATIO 2.9 (<4.4); CHOLESTEROL 155 mg/dL; GFR - MDRD 55 (>89); GLUCOSE 234 mg/dL (74-104); HDL CHOLESTEROL 53 mg/dL; LDL CHOLESTEROL,CALCULATED 83 mg/dL; LDL/HDL RATIO 1.6 (<4.4); POTASSIUM 4.6 mmol/L (3.5-4.5); SODIUM 135 mmol/L (135-145); TRIGLYCERIDES 96 mg/dL (48-352); VLDL CHOLESTEROL 19 mg/dL
[2023-09-27 10:41] LABS: ESTIMATED AVERAGE GLUCOSE 203 mg/dL (70-100); HEMOGLOBIN A1c% 8.7 % (4.27-6.07)
== END 2023-09-27 09:35 | disposition home or self-care (01) ==
LOC: LAB 09:34
PROVIDERS: ATTEND Physician Assistant Medical
DX: E11.9 Type 2 diabetes mellitus without complications (principal)
CPT/HCPCS: 36415; 80053; 80061; 83036; 83721

== ENCOUNTER 2023-09-27 09:50 | Emergency (ER) | payer MEDICARE, OTHER ==
[2023-09-27 10:08] VITALS: O2SAT 100
--- NOTE | 2023-09-27 10:48 | ED Physician Documentation ---
PD HPI HEAD INJURY - Stated complaint Stated Complaint: FALL, FACE INJ - Chief complaint Chief Complaint: Trauma Hd/Nk - History obtained from History obtained from: Patient - Additional information Additional information: Patient is a 68-year-old female presenting for evaluation of a head injury that occurred on Friday. Patient states she slipped on a wet ramp leading into her house due to the rain and fell forward hitting her face. She does not take a blood thinner and had no LOC. She reports having increased pain today to her head and to the area of bruising around her face. Denies changes to her vision. No extremity pain. No neck pain. No nausea or vomiting. Review of Systems Constitutional: denies: Fever Cardiac: denies: Chest pain / pressure Respiratory: denies: Dyspnea GI: denies: Abdominal Pain Neurologic: reports: Head injury PD PAST MEDICAL HISTORY - Past Medical History Cardiovascular: Hypertension, High cholesterol Respiratory: Sleep apnea, CPAP use Endocrine/Autoimmune: Type 2 diabetes GI: GERD, Diverticulitis : None HEENT: None Psych: Depression Musculoskeletal: Osteoarthritis, Fibromyalgia, Osteopenia, Chronic back pain Derm: Rosacea - Past Surgical History Past Surgical History: Yes General: Cholecystectomy, Colonoscopy Ortho: Arthroscopic surgery, Other /LAP CUTTER: Tubal ligation, 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, Oophrectomy - Present Medications Home Medications: Ambulatory Orders Medication Instructions Recorded Confirmed Losartan Potassium 100 mg PO DAILY 12/25/16 08/22/23 Metformin HCl [Glucophage Xr] 1,000 tab PO BID 12/25/16 08/22/23 Atorvastatin Calcium 10 mg PO QPM 02/11/19 08/22/23 Tramadol HCl 50 - 100 mg PO TID 02/11/19 08/22/23 Glimepiride [Amaryl] 4 mg PO BID 10/23/22 08/22/23 Atorvastatin [Lipitor] 10 mg PO DAILY 08/22/23 08/22/23 - Allergies Allergies/Adverse Reactions: Allergies Allergy/AdvReac Type Severity Reaction Status Date / Time amoxicillin Allergy Hives Verified 09/27/23 09:59 latex Allergy Hives Verified 09/27/23 09:59 liraglutide [From Victoza] Allergy Unknown Verified 09/27/23 09:59 sulfamethoxazole Allergy Hives Verified 09/27/23 09:59 [From Septra] trimethoprim [From Septra] Allergy Hives Verified 09/27/23 09:59 lisinopril AdvReac Unknown Verified 09/27/23 09:59 - Social History Does the pt smoke?: No Smoking Status: Never smoker Does the pt drink ETOH?: Yes Does the pt have substance abuse?: No - Immunizations Immunizations are current?: Yes - POLST Patient has POLST: No PD ED PE NORMAL - General General: Alert and oriented X 3, No acute distress, Well developed/nourished - HEENT HEENT: PERRL, EOMI, Other (Bruising to right forehead and right periorbital region, No mandibular instability) - Neck Neck: Supple, no meningeal sign, No bony TTP - Cardiac Cardiac: RRR, Strong equal pulses - Respiratory Respiratory: No respiratory distress, Clear bilaterally - Abdomen Abdomen: Soft, Non tender - Derm Derm: Warm and dry - Extremities Extremities: No deformity - Neuro Neuro: Alert and oriented X 3, cae engineer 2-12 intact, No motor deficit, No sensory deficit, Normal speech Eye Opening: Spontaneous Motor: Obeys Commands Verbal: Oriented GCS Score: 15 Results - Vitals Vitals: Vital Signs - 24 hr 09/27/23 09/27/23 09:56 11:39 Temperature 36.8 C 36.6 C Heart Rate 68 63 Respiratory 16 16 Rate Blood Pressure 159/70 H 159/72 H O2 Saturation 100 100 Oxygen O2 Source Room air PD Medical Decision Making - ED course Complexity details: reviewed results, re-evaluated patient, d/w patient ED course: Patient is a 68-year-old female presenting for evaluation of head injury and facial contusions after a fall few days ago. She is not on blood thinners. Fall is mechanical due to slip on wet surface. Normal neuroexam. CT head and maxillofacial were obtained and reviewed and without significant findings to suggest fracture or intracranial bleed. No neck tenderness. Reviewed CT results with patient as well as continued treatment plan and concerning symptoms to return for. Departure - Departure Disposition: 01 Home, Self Care Clinical Impression: Head injury, Facial bruising Condition: Stable Instructions: ED Contusion Face, ED Head Injury Closed Comments: The CT scans of your head and your facial bones do not show any injuries from your fall such as a broken bone or bleeding inside your brain. Please continue with anti-inflammatory such as acetaminophen for pain along with ice. Return to the ER with any worsening symptoms. Forms: PCP List Discharge Date/Time: 09/27/23 11:40
--- NOTE | 2023-09-27 11:09 | CT Report ---
PROCEDURE: Head WO INDICATIONS: head injury/headache/bruising TECHNIQUE: Noncontrast 4.5 mm thick angled axial sections acquired from the foramen magnum to the vertex. For r adiation dose reduction, the following was used: automated exposure control, adjustment of mA and/or kV according to patient size. COMPARISON: Correlation is made with the accompanying imaging. FINDINGS: Image quality: Excellent. CSF spaces: Basal cisterns are patent. No extra-axial fluid collections. Ventricles are normal in size and shape. Brain: No midline shift. No intracranial masses or hemorrhage. Sigala-white matter interface is norm al. Skull and face: Calvarium and visualized facial bones are intact, without suspicious lesions. Sinuses: Visualized sinuses and mastoids are clear. IMPRESSION: No intracranial hemorrhage is seen. No acute intracranial pathology. Reviewed by: Gamaliel Garland MD on 09/27/2023 10:07 AM [facility] Approved by: Gamaliel Garland MD on 09/27/2023 10:07 AM [facility] Station ID: [id number]
--- NOTE | 2023-09-27 11:09 | CT Report ---
PROCEDURE: Maxillofacial WO INDICATIONS: fall/R facial bruising TECHNIQUE: Noncontrast 1.5 mm thick axial images acquired from the mandible through the frontal sinuses, with co keerthi and sagittal reformatting. 3-D reformatted images were performed. For radiation dose reducti on, the following was used: automated exposure control, adjustment of mA and/or kV according to omar ent size. COMPARISON: Correlation is made with the accompanying imaging. FINDINGS: Image quality: Excellent. Bones and teeth: Orbital quinn are intact. Sinus quinn show no fracture or deformity. Nasal bones and septum are intact. Visualized portions of the mandible demonstrate no fractures or subluxation. Zygomatic arches are intact. Pterygoid plates are intact. Visualized portions of the skull base an d auditory canals are intact. Sinuses: Paranasal sinuses are aerated, without fluid levels, mucosal thickening, or mucoceles. Mas toid air cells are aerated. Soft tissues: No edema, masses, or fluid collections. No enlarged lymph nodes. No soft tissue lace rations or debris. Vascular: Visualized vascular structures appear normal in the absence of contrast. Bony vascular fo ramina and canals are intact. IMPRESSION: Negative for displaced facial bone fracture. Reviewed by: Gamaliel Garland MD on 09/27/2023 10:08 AM EN[facility] Approved by: Gamaliel Garland MD on 09/27/2023 10:08 AM [facility] Station ID: [id number]
[2023-09-27 11:47] VITALS: BP 159/72
== END 2023-09-27 11:40 | disposition home or self-care (01) ==
LOC: ED 09:50
DX: S09.90XA Unspecified injury of head, initial encounter (principal); S00.83XA Contusion of other part of head, initial encounter; W01.0XXA Fall on same level from slipping, tripping and stumbling without subsequent striking against object, initial encounter; Y92.007 Garden or yard of unspecified non-institutional (private) residence as the place of occurrence of the external cause; I10 Essential (primary) hypertension; E78.00 Pure hypercholesterolemia, unspecified; E11.9 Type 2 diabetes mellitus without complications; Z79.899 Other long term (current) drug therapy; Z79.84 Long term (current) use of oral hypoglycemic drugs; Z91.040 Latex allergy status
CPT/HCPCS: 36415; 80053; 80061; 83036; 83721; 99284

== ENCOUNTER 2024-01-10 10:46 | Outpatient (CLI) | payer MEDICARE, OTHER ==
[2024-01-10 11:30] LABS: CALCIUM 9.5 mg/dL (8.5-10.3); CREATININE 0.9 mg/dL (0.6-1.3); POTASSIUM 4.6 mmol/L (3.5-4.5)
[2024-01-10 11:37] LABS: ESTIMATED AVERAGE GLUCOSE 148 mg/dL (70-100); HEMOGLOBIN A1c% 6.8 % (4.27-6.07)
== END 2024-01-10 10:47 | disposition home or self-care (01) ==
LOC: LAB 10:46
PROVIDERS: ATTEND Physician Assistant Medical
DX: E11.9 Type 2 diabetes mellitus without complications (principal)
CPT/HCPCS: 36415; 80048; 83036

== ENCOUNTER 2024-02-11 06:19 | Inpatient (IN) ==
[2024-02-11] MEDS: LACTATED RINGERS 1,000 ML IV ONE (06:25)
[2024-02-11] MEDS ORDERED: PROPOFOL 500 MG/50 ML 500 MG/50 ML VIAL ONE (07:04)
[2024-02-11] MEDS ORDERED: LIDOCAINE-MPF 2% 5 ML VIAL ONE (07:04)
--- NOTE | 2024-02-11 07:04 | ANESTHESIA ---
Pre-Anesthesia VS, & Labs - Diagnosis irregular bowel pattern - Procedure diagnostic colonoscopy Height: 5 ft 4 in - NPO >8 hours Last Fluid Intake: 0300 - Is Patient ?: No Home Medications and Allergies Home Medications: Ambulatory Orders Albuterol Sulf [Ventolin Hfa Inhaler] 1 - 2 puffs INH Q4HR PRN 02/09/24 Dextrose [Glucose] 2 gm PO PRN PRN 02/09/24 Glimepiride [Amaryl] 2 mg PO QPM 02/09/24 Insulin Glargine [Lantus Solostar] 8 unit SUBQ DAILY 02/09/24 Losartan Potassium 100 mg PO DAILY 12/25/16 Metformin HCl [Glucophage Xr] 1,000 tab PO BID 12/25/16 Atorvastatin Calcium 10 mg PO QPM 02/11/19 Tramadol HCl 50 - 100 mg PO TID PRN 02/11/19 Glimepiride [Amaryl] 4 mg PO DAILY 10/23/22 Albuterol Sulf [Ventolin Hfa Inhaler] 1 - 2 puffs INH Q4HR PRN 02/09/24 Dextrose [Glucose] 2 gm PO PRN PRN 02/09/24 Glimepiride [Amaryl] 2 mg PO QPM 02/09/24 Insulin Glargine [Lantus Solostar] 8 unit SUBQ DAILY 02/09/24 Allergies/Adverse Reactions: Allergies Allergy/AdvReac Type Severity Reaction Status Date / Time amoxicillin Allergy Hives Verified 09/27/23 09:59 latex Allergy Hives Verified 09/27/23 09:59 liraglutide [From Victoza] Allergy Unknown Verified 09/27/23 09:59 sulfamethoxazole Allergy Hives Verified 09/27/23 09:59 [From Septra] trimethoprim [From Septra] Allergy Hives Verified 09/27/23 09:59 lisinopril AdvReac Unknown Verified 09/27/23 09:59 Anes History & Medical History - Anesthetic History Anesthesia Complications: reports: No previous complications - Medical History Cardiovascular: reports: Hypertension, High cholesterol Pulmonary: reports: Sleep apnea (does not use cpap), Other Gastrointestinal: reports: GERD, Diverticulitis Urinary: reports: Kidney stones Neuro: reports: None Musculoskeletal: reports: Osteoarthritis, Fibromyalgia, Osteopenia, Chronic back pain Endocrine/Autoimmune: reports: Type 2 diabetes Blood Disorders: reports: None Skin: reports: Rosacea Smoking Status: Never smoker Psychosocial: reports: Cannabis (occ) History of Cancer?: Yes (hx ovarian ca, no chemo/radiation) - Surgical History General: reports: Cholecystectomy, Colonoscopy Gynecologic: reports: Tubal ligation, 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, Oophrectomy Orthopedic: reports: Arthroscopic surgery, Other Exam General: Alert, Oriented x3, Cooperative, No acute distress Dental: Poor dentition Mouth Openin Fingerbreadth Neck Mobility: Normal Mallampati classification: I Thyromental Distance: 4-6 cm Mental/Cognitive Status: Alert/Oriented X3, Normal for patient Plan Anesthesia Type: General, Total IV Consent for Procedure(s) Verified and Reviewed: Yes Code Status: Attempt Resuscitation ASA classification: 3-Severe systemic disease Is this case an emergency?: No
[2024-02-11] MEDS ORDERED: PROPOFOL 200 MG/20 ML VIAL IVP ONE (07:37)
[2024-02-11] MEDS: LACTATED RINGERS 600 ML IV ONE ×2 (08:09→16:01)
[2024-02-11] MEDS ORDERED: HYDROmorphone 0.5 MG/0.5 ML SYRINGE ONE (08:34)
[2024-02-11] MEDS ORDERED: ONDANSETRON 4 MG/2 ML VIAL ONE (08:34)
[2024-02-11] MEDS: ONDANSETRON 4 MG/2 ML VIAL IVP PRN (08:38)
[2024-02-11] MEDS: HYDROmorphone 0.5 MG/0.5 ML SYRINGE IVP PRN (08:38)
--- NOTE | 2024-02-11 09:47 | XRAY Report ---
PROCEDURE: Abdomen 1 V INDICATIONS: post-colonoscopy pain, r/o free air - UPRIGHT TECHNIQUE: One view of the abdomen acquired. COMPARISON: None. FINDINGS: Surgical changes and devices: Cholecystectomy clips.. Bowel: Bowel gas pattern is normal. Pneumoperitoneum. Soft tissues: No suspicious abdominal calcifications. Visualized solid organ contours appear normal in size. Bones: No suspicious bony lesions. IMPRESSION: Pneumoperitoneum, concerning for perforation. A call report was initiated for this examination. Reviewed by: Mars Christina MD on 02/11/2024 9:46 AM PDT Approved by: Mars Christina MD on 02/11/2024 9:46 AM PDT Station ID: [id number]
[2024-02-11] MEDS ORDERED: iohexoL-300 100 ML VIAL ONE ×2 (10:22→10:24)
[2024-02-11] MEDS ORDERED: DIATRIZOATE MEGLU/DIATRIZO SOD 30 ML BOTTLE PO ONE (10:25)
[2024-02-11] MEDS: INSULIN LISPRO 300 UNIT/3 ML PEN SUBQ SCH ×2 (10:48→21:24)
[2024-02-11] MEDS: iohexoL-300 100 ML VIAL IVP ONE (12:47)
[2024-02-11] MEDS: DIATRIZOATE MEGLU/DIATRIZO SOD 30 ML BOTTLE PO ONE (12:48)
--- NOTE | 2024-02-11 14:21 | CT Report ---
PROCEDURE: Abdomen/Pelvis W INDICATIONS: c/f pneumoperitoneum/perforation after colonoscopy CONTRAST: Omni 300 100ml TECHNIQUE: After the administration of intravenous contrast, a CT scan of the abdomen and pelvis was performed. Images were recorded and evaluated at appropriate window settings. Reformats: coronal and sagittal. F or radiation dose reduction, the following was used: automated exposure control, adjustment of mA and /or kV according to patient size. COMPARISON: 10/03/2022 FINDINGS: Image quality: Diagnostic. Lower chest: Unremarkable. Liver: No solid mass. Gallbladder: Surgically absent Biliary tree: Chronic severe dilatation of the biliary tree, similar to previous. No distal obstructi ng mass identified. Spleen: No splenomegaly. Pancreas: No pancreatic ductal dilation. Adrenals: No adrenal nodule. Kidneys and ureters: No hydronephrosis. No renal cystic lesion which requires follow up. No solid mas s. Stomach, bowel and peritoneum: No gastric or small bowel dilation. No abnormal wall thickening. No pa thologic free fluid. There is a relatively small amount of free air present consistent with perforate d viscus. Lymph nodes: No central or retroperitoneal adenopathy. Vessels: No infrarenal aortic aneurysm. Patent portal vein. PELVIS Reproductive organs: Uterus is surgically absent with pelvic floor relaxation.. Bladder: No abnormal wall thickening, accounting for underdistention. Pelvic lymph nodes: No pelvic adenopathy by size criteria. Bones: No aggressive osseous abnormality. Other: No significant ventral or inguinal hernia. IMPRESSION: 1. There is free air consistent with perforated viscus. The site of perforation is not identified. Th ere is no free fluid noted. 2. Remote hysterectomy with pelvic floor relaxation. 3. Remote cholecystectomy. 4. Severe diffuse biliary ductal dilatation, as before, without identifiable obstructing mass. Reviewed by: Mir Garcia MD on 02/11/2024 2:19 PM PDT Approved by: Mir Garcia MD on 02/11/2024 2:19 PM PDT Station ID: [id number]
--- NOTE | 2024-02-11 14:57 | HISTORY & PHYSICAL EXAMINATION ---
History of Present Illness - History of Present Illness HPI Comment/Other: 68yoF underwent diagnostic colonoscopy in same day surgery this morning, for irregular bowel patterns and diarrhea; procedure involved random mendenhall-colonic biopsies with cold forceps. In the PACU she had severe abdominal pain and lower abdominal ttp and emesis, which did improve after passing gas and receiving 0.5mg of dilaudid. An upright AXR was obtained showing free air, and thus a CT abd/pel with IV and oral contrast was obtained in follow up, showing pneumoperitoneum (though a relatively small amount) and no obvious location of colonic perforation. After a few hours in the PACU, her pain remained minimal and she was HD normal, emesis and nausea had resolved. History - Past Medical History Cardiovascular: reports: Hypertension, High cholesterol Respiratory: reports: Sleep apnea (does not use cpap), Other Neuro: reports: None Endocrine/Autoimmune: reports: Type 2 diabetes GI: reports: GERD, Diverticulitis : reports: Kidney stones HEENT: reports: Chronic vision loss Psych: reports: Depression Musculoskeletal: reports: Osteoarthritis, Fibromyalgia, Osteopenia, Chronic back pain Derm: reports: Rosacea MRSA Hx?: No - Past Surgical History General: reports: Cholecystectomy, Colonoscopy Ortho: reports: Arthroscopic surgery, Other /THERMOSTAT MAKER: reports: Tubal ligation, 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, Oophrectomy - POLST Patient has POLST: No Meds/Allgy - Home Medications Home Medications: Ambulatory Orders Medication Instructions Recorded Confirmed Losartan Potassium 100 mg PO DAILY 12/25/16 02/11/24 Metformin HCl [Glucophage Xr] 1,000 tab PO BID 12/25/16 02/11/24 Atorvastatin Calcium 10 mg PO QPM 02/11/19 02/09/24 Tramadol HCl 50 - 100 mg PO TID PRN 02/11/19 02/11/24 Glimepiride [Amaryl] 4 mg PO DAILY 10/23/22 02/11/24 Albuterol Sulf [Ventolin Hfa 1 - 2 puffs INH Q4HR PRN 02/09/24 02/09/24 Inhaler] Dextrose [Glucose] 2 gm PO PRN PRN 02/09/24 02/11/24 Glimepiride [Amaryl] 2 mg PO QPM 02/09/24 02/11/24 Insulin Glargine [Lantus Solostar] 8 unit SUBQ DAILY 02/09/24 02/11/24 - Allergies Allergies/Adverse Reactions: Allergies Allergy/AdvReac Type Severity Reaction Status Date / Time amoxicillin Allergy Hives Verified 09/27/23 09:59 latex Allergy Hives Verified 09/27/23 09:59 liraglutide [From Victoza] Allergy Unknown Verified 09/27/23 09:59 sulfamethoxazole Allergy Hives Verified 09/27/23 09:59 [From Septra] trimethoprim [From Septra] Allergy Hives Verified 09/27/23 09:59 lisinopril AdvReac Unknown Verified 09/27/23 09:59 Review of Systems - Gastrointestinal Gastrointestinal: reports: Abdominal pain Exam - Vital Signs Reviewed Vital Signs: Yes - Physical Exam General Appearance: positive: No acute distress, Alert Eyes Bilateral: positive: Normal inspection, PERRL ENT: positive: ENT inspection nml, Pharynx nml, No signs of dehydration Neck: positive: Nml inspection, Thyroid nml, No JVD, Trachea midline Respiratory: positive: Chest non-tender, No respiratory distress, Breath sounds nml Cardiovascular: positive: Regular rate & rhythm, No murmur, No gallop Peripheral Pulses: positive: 2+ Abdomen: positive: No distention (obese abdomen, no distensio appreciated), Tenderness (mild upper abdominal ttp at time of transfer from PACU to floor) Rectal: positive: Other (no blood at anus or on RICKI in the PACU) Back: positive: Nml inspection Skin: positive: Color nml, No rash, Warm, Dry Extremities: positive: Non-tender, Full ROM, Nml appearance Neurologic/Psychiatric: positive: Oriented x3, Mood/affect nml Conclusion/Plan - Problem List (1) Large bowel perforation, intraoperative Conclusion/Plan: 68yoF with pneumoperitoneum s/p scheduled diagnostic colonoscopy today. Given HD normal, much improved and stable mild epigastric ttp in PACU, and relatively small amount of free air on CT without an obvious site of large colonic perforation, I suspect this represents an iatrogenic microperforation of the large bowel during her colonoscopy. Plan for 48hours of bowel rest with abx (cipro/flagyl) with serial abdominal exams. If she remains clinically stable, will advance diet after interval of bowel rest; if clinically decompensates, w ill need to address the perforation surgically. - admit to floor - npo, D5 1/2NS+K @ 125/hr - IV cipro/flagyl - lovenox - 1/2 home lantus dose with SSI - hold home losartan for now Latricia Nguyễn DO FACS General Surgeon Jason - Diagnostic Imaging Results Diagnostic Imaging Results: positive: Final report reviewed, Read independently Diagnostic Imaging Results Comments: AXR and CT abd/pel same day as detailed in HPI
[2024-02-11] MEDS ORDERED: CIPROFLOXACIN 400 MG/200 ML 400 MG/200 ML BAG IV ONE (15:35)
[2024-02-11] MEDS: CIPROFLOXACIN 400 MG/200 ML 400 MG/200 ML BAG IV SCH (15:37)
--- NOTE | 2024-02-11 15:48 | ANESTHESIA POST OP EVALUATION ---
Anesthesia Post Eval - Post Anesthesia Eval CV Function Including HR & BP: Stable Pain Control: Satisfactory Nausea & Vomiting: Negative Mental Status: Baseline Respiratory Status: Airway Patent Hydration Status: Satisfactory Anesthesia Complications: None
--- NOTE | 2024-02-11 17:24 | PHARMACY PROGRESS NOTE ---
- Best Possible Medication History Admit Date and Time: 02/11/24 1436 Processed by: Pharmacy (Medication Reconciliation completed by Manager Security And Safety, Ainsley) Medications reviewed in ED?: No Medication History completed: Yes Patient Interview: Completed Secondary Source(s): Pharmacy records, Insurance records As the person ultimately responsible for medication therapy, providers are able to order a medication from an existing home medication list in [facility] via the "Reconcile Routine" prior to Confirmation of that medication by it support engineer. Such practice is discouraged except when the physician, in their clinical judgment, deems that a medical need exists for a medication without regard to previous use.
[2024-02-11] MEDS: SODIUM CHLORIDE FLUSH 0.9% 10 ML SYRINGE IVP SCH (18:06)
[2024-02-11] MEDS: ACETAMINOPHEN 1,000 MG/100 ML 1,000 MG/100 ML BAG IV SCH (18:06)
[2024-02-11] MEDS: D5.45NS W/20 MEQ KCL 1,000 ML IV SCH (18:06)
[2024-02-11] MEDS: metroNIDAZOLE 500 MG/100 ML 500 MG/100 ML BAG IV SCH (18:07)
[2024-02-11] MEDS: INSULIN GLARGINE-YFGN 300 UNIT/3 ML PEN SUBQ SCH (21:22)
[2024-02-12] MEDS: metroNIDAZOLE 500 MG/100 ML 500 MG/100 ML BAG IV SCH (01:54)
[2024-02-12] MEDS ORDERED: SIMETHICONE 40 MG/0.6 ML 30 ML BOTTLE PO PRN (02:09)
[2024-02-12 05:59] LABS: BASOPHILS % (AUTO) 0.3 %; HCT - HEMATOCRIT 42.4 % (37.0-47.0); HGB - HEMOGLOBIN 13.6 g/dL (12.0-16.0); LYMPHOCYTES # (AUTO) 0.8 10^3/uL (1.5-3.5); LYMPHOCYTES % (AUTO) 7.1 %; MEAN CORPUSCULAR HEMOGLOBIN 28.3 pg (27.0-31.0); MEAN CORPUSCULAR HGB CONC 32.1 g/dL (32.0-36.0); MEAN CORPUSCULAR VOLUME 88.3 fL (81.0-99.0); MEAN PLATELET VOLUME 11.6 fL (7.9-10.8); MONOCYTES # (AUTO) 0.8 10^3/uL (0.0-1.0); MONOCYTES % (AUTO) 6.4 %; NEUTROPHILS # (AUTO) 10.2 10^3/uL (1.5-6.6); NEUTROPHILS % (AUTO) 85.9 %; PLT - PLATELET COUNT 194 10^3/uL (130-450); RED CELL DISTRIBUTION WIDTH 13.9 % (12.0-15.0); WHITE BLOOD COUNT 11.9 x10^3/uL (4.8-10.8)
[2024-02-12 06:15] LABS: CALCIUM 9.4 mg/dL (8.5-10.3); CREATININE 0.8 mg/dL (0.6-1.3); MAGNESIUM 1.3 mg/dL (1.7-2.3); POTASSIUM 4.1 mmol/L (3.5-4.5)
[2024-02-12] MEDS ORDERED: MAGNESIUM SULFATE 1 GM/2 ML VIAL IVP STA (09:01)
--- NOTE | 2024-02-12 09:41 | PROVIDER PROGRESS NOTE ---
Subjective - General Admit Date: 02/11/24 Procedure Date: 02/11/24 Post Op Days: 1 Procedure Performed: colonoscopy - Other Other Information/Narrative: Overnight had one episode of more severe lower abdominal pain and nausea associated with passing a BM - got dilaudid and zofran x1 and back to more mild /moderate level - overall she feels it is stable since postprocedural yesterday but not improved. HR stable, BP trending towards hypertensive - will restart her home losartan. Did not get NPO-based SSI overnight or this AM, and no BG in 300s. She is also complaining of urinary frequency and dysuria, stating that this was starting a couple days before the colonoscopy but is now worse. Objective - Patient Data Reviewed Vital Signs: Yes Vital Signs: Vital Signs x48h Temp Pulse Resp BP Pulse Ox 02/12/24 08:00 36.7 C 98 20 164/82 H 98 02/12/24 04:35 37.2 C 98 22 166/80 H 96 Weight: Weight 02/10/24 02/11/24 02/12/24 23:59 23:59 23:59 Weight (kg) 99.5 kg Intake & Output: Intake and Output Totals x24h 02/10/24 02/11/24 02/12/24 23:59 23:59 23:59 Intake Total 9973.940 9718.833 Output Total 250 Balance 8820.657 1987.833 - Lab Results Lab Results: 02/12/24 05:24 02/12/24 05:24 Other Lab Results: Lab Results x24hrs 02/12/24 02/12/24 02/12/24 Range/Units 05:24 05:24 00:07 WBC 11.9 H (4.8-10.8) x10^3/uL RBC 4.80 (4.20-5.40) 10^6/uL Hgb 13.6 (12.0-16.0) g/dL Hct 42.4 (37.0-47.0) % MCV 88.3 (81.0-99.0) fL MCH 28.3 (27.0-31.0) pg MCHC 32.1 (32.0-36.0) g/dL RDW 13.9 (12.0-15.0) % Plt Count 194 (130-450) 10^3/uL MPV 11.6 H (7.9-10.8) fL Neut # (Auto) 10.2 H (1.5-6.6) 10^3/uL Lymph # (Auto) 0.8 L (1.5-3.5) 10^3/uL Hernando # (Auto) 0.8 (0.0-1.0) 10^3/uL Eos # (Auto) 0.0 (0.0-0.7) 10^3/uL Baso # (Auto) 0.0 (0.0-0.1) 10^3/uL Absolute Nucleated RBC 0.00 x10^3/uL Nucleated RBC % 0.0 /100WBC Sodium 133 L (135-145) mmol/L Potassium 4.1 (3.5-4.5) mmol/L Chloride 101 (101-111) mmol/L Carbon Dioxide 23 (21-32) mmol/L Anion Gap 9.0 (6-13) BUN 10 (6-20) mg/dL Creatinine 0.8 (0.6-1.3) mg/dL Estimated GFR (MDRD) 72 L (>89) Glucose 325 H (74-104) mg/dL POC Whole Bld Glucose 175 H (70 - 100) mg/dL Calcium 9.4 (8.5-10.3) mg/dL Phosphorus 3.0 (2.5-5.0) mg/dL Magnesium 1.3 L (1.7-2.3) mg/dL 02/11/24 02/11/24 Range/Units 21:23 18:16 WBC (4.8-10.8) x10^3/uL RBC (4.20-5.40) 10^6/uL Hgb (12.0-16.0) g/dL Hct (37.0-47.0) % MCV (81.0-99.0) fL MCH (27.0-31.0) pg MCHC (32.0-36.0) g/dL RDW (12.0-15.0) % Plt Count (130-450) 10^3/uL MPV (7.9-10.8) fL Neut # (Auto) (1.5-6.6) 10^3/uL Lymph # (Auto) (1.5-3.5) 10^3/uL Hernando # (Auto) (0.0-1.0) 10^3/uL Eos # (Auto) (0.0-0.7) 10^3/uL Baso # (Auto) (0.0-0.1) 10^3/uL Absolute Nucleated RBC x10^3/uL Nucleated RBC % /100WBC Sodium (135-145) mmol/L Potassium (3.5-4.5) mmol/L Chloride (101-111) mmol/L Carbon Dioxide (21-32) mmol/L Anion Gap (6-13) BUN (6-20) mg/dL Creatinine (0.6-1.3) mg/dL Estimated GFR (MDRD) (>89) Glucose (74-104) mg/dL POC Whole Bld Glucose 192 H 222 H (70 - 100) mg/dL Calcium (8.5-10.3) mg/dL Phosphorus (2.5-5.0) mg/dL Magnesium (1.7-2.3) mg/dL - Current Medications Current Medications: Current Medications Generic Name Dose Route Start Last Admin Trade Name Freq PRN Reason Stop Dose Admin Hydromorphone HCl 0.5 mg 02/11/24 08:35 02/12/24 08:19 Hydromorphone 0.5 Mg/0.5 Ml Syringe IVP 0.5 mg Q2H PRN Administration Severe Pain (Level 7-10) Potassium Chloride/Dextrose/Sod Cl 1,000 mls @ 125 mls/hr 02/11/24 15:00 02/12/24 01:52 D5.45ns W/20 Meq Kcl IV 125 mls/hr .Q8H SHANNAN Administration Acetaminophen 1,000 mg in 100 mls @ 400 mls/hr 02/11/24 18:00 02/12/24 07:35 Acetaminophen IV Infused Q6HR SHANNAN Infusion Ciprofloxacin 400 mg in 200 mls @ 200 mls/hr 02/11/24 15:00 02/12/24 06:24 Cipro 400 Mg/200 Ml IV Infused Q12H SHANNAN Infusion Metronidazole 500 mg in 100 mls @ 100 mls/hr 02/12/24 02:00 02/12/24 08:11 Flagyl 500 Mg/100 Ml IV Infused Q8H SHANNAN Infusion Insulin Glargine-yfgn 4 unit 02/11/24 21:00 02/11/24 21:22 Insulin Glargine-Yfgn 300 Unit/3 Ml Pen SUBQ 4 unit QPM SHANNAN Administration Insulin Human Lispro 1 - 9 unit 02/11/24 21:00 02/11/24 21:24 Insulin Lispro 300 Unit/3 Ml Pen SUBQ 3 unit 0800,1200,1700,2100 SHANNAN Administration Protocol Ondansetron HCl 4 mg 02/11/24 08:35 02/12/24 08:20 Ondansetron 4 Mg/2 Ml Vial IVP 4 mg Q6HR PRN Administration Nausea / Vomiting Sodium Chloride 10 ml 02/11/24 17:00 02/12/24 08:22 Sodium Chloride Flush 0.9% 10 Ml Syringe IVP Not Given 0100,0900,1700 COUNT INCLUDES THE [facility] - Physical Exam General Appearance: positive: No acute distress Respiratory: positive: No respiratory distress, Breath sounds nml Cardiovascular: positive: Regular rate & rhythm Abdomen: positive: No distention, Tenderness (right sided upper and lower ttp). negative: Guarding, Rebound Skin: positive: Color nml Neurologic/Psychiatric: positive: Oriented x3 ABX Reporting Has patient been on IV antibiotics over the past 48 hours?: Yes Impression/Plan - Problem List Problem List: 68yoF with pneumoperitoneum s/p scheduled diagnostic colonoscopy yesterday. Though she has remained HD Normal and afebrile (with some HTN), and a repeat upright AXR this AM shows decreased amount of free air, her abdominal pain is not improving, with intermittent spikes of severe abdominal pain, concerning for a free colonic perforation that is not self-sealing with bowel rest and abx as a microperforation should. Thus, will proceed to OR today. Also hyperglycemic and concern for UTI. - AXR completed this AM - home losartan resumed - increased SSI, recheck until BG controlled (1/2 home lantus while NPO) - UA/Ur cx - npo, D5 1/2NS+K @ 125/hr - IV cipro/flagyl - lovenox - to OR for diagnostic laparoscopy possible exploratory laparotomy with bowel repair vs bowel resection as indicated. Latricia Nguyễn DO FACS General Sur[facility]
[2024-02-12] MEDS: ENOXAPARIN 40 MG/0.4 ML SYRINGE SUBQ SCH (10:10)
--- NOTE | 2024-02-12 10:15 | XRAY Report ---
PROCEDURE: Abdomen 1 V INDICATIONS: UPRIGHT, interval comparison of pneumoperitoneum TECHNIQUE: One view of the abdomen acquired. COMPARISON: CT and x-ray 02/11/2024 FINDINGS: Surgical changes and devices: Cholecystectomy clips. Bowel: Gaseous distention of the large bowel. Intraluminal contrast within the ascending and descendi ng colon. Soft tissues: No suspicious abdominal calcifications. Visualized solid organ contours appear normal in size. Decreased pneumoperitoneum. Bones: No suspicious bony lesions. IMPRESSION: Decreased pneumoperitoneum. Gaseous distention of the large bowel. Intraluminal contrast present within the large bowel. Reviewed by: Mars Christina MD on 02/12/2024 10:14 AM PDT Approved by: Mars Christina MD on 02/12/2024 10:14 AM PDT Station ID: [id number]
[2024-02-12] MEDS: MAGNESIUM SULFATE 2 GRAM 2 GM/50 ML BAG IV ONE (10:29)
[2024-02-12 10:34] LABS: BILIRUBIN,URINE NEGATIVE (NEGATIVE); GLUCOSE, URINE (UA) >=1000 mg/dL (NEGATIVE); KETONES,URINE (UA) 15 mg/dL (NEGATIVE); LEUKOCYTE ESTERASE, URINE SMALL (NEGATIVE); NITRITE,URINE NEGATIVE (NEGATIVE); OCCULT BLOOD,URINE NEGATIVE (NEGATIVE); PROTEIN,URINE NEGATIVE (NEGATIVE); UROBILINOGEN,URINE 0.2 (NORMAL) E.U./dL (NORMAL)
[2024-02-12 10:36] LABS: CLARITY,URINE SL. CLOUDY (CLEAR)
[2024-02-12 10:46] LABS: BACTERIA,URINE Few /HPF (None Seen); RBC,URINE 0-5 /HPF (0-5); SQUAMOUS EPITHELIAL CELL,UR FEW Squamous (<= Few); WBC CLUMPS,URINE PRESENT; WBC,URINE >25 /HPF (0-5)
[2024-02-12] MEDS: INSULIN LISPRO 300 UNIT/3 ML PEN SUBQ SCH (12:01)
[2024-02-12] MEDS ORDERED: BUPIVACAINE 0.25% PF 30 ML VIAL ONE (13:50)
[2024-02-12] MEDS ORDERED: LIDOCAINE 1%-EPI 1:100000 20 ML MDV ONE (13:50)
--- NOTE | 2024-02-12 13:52 | ANESTHESIA ---
Pre-Anesthesia VS, & Labs - Diagnosis bowel perforation - Procedure diagnostic laparoscopy Vital Signs: Temp Pulse Resp BP Pulse Ox O2 Flow Rate 36.5 C 105 H 24 169/104 H 94 02/12/24 13:17 02/12/24 13:17 02/12/24 13:17 02/12/24 13:17 02/12/24 13:17 Height: 5 ft 4 in Weight (kg): 99.5 kg Body Mass Index: 37.6 BMI Classification: Obese - NPO >8 hours - Is Patient ?: No - Lab Results Current Lab Results: Laboratory Tests 02/12/24 13:18: POC Whole Bld Glucose 285 H 02/12/24 11:43: POC Whole Bld Glucose 368 H 02/12/24 05:24: Sodium 133 L, Potassium 4.1, Chloride 101, Carbon Dioxide 23, Anion Gap 9.0, BUN 10, Creatinine 0.8, Estimated GFR (MDRD) 72 L, Glucose 325 H, Calcium 9.4, Phosphorus 3.0, Magnesium 1.3 L 02/12/24 05:24: WBC 11.9 H, RBC 4.80, Hgb 13.6, Hct 42.4, MCV 88.3, MCH 28.3, MCHC 32.1, RDW 13.9, Plt Count 194, MPV 11.6 H, Neut # (Auto) 10.2 H, Lymph # (Auto) 0.8 L, Mcdowell # (Auto) 0.8, Eos # (Auto) 0.0, Baso # (Auto) 0.0, Absolute Nucleated RBC 0.00, Nucleated RBC % 0.0 02/12/24 00:07: POC Whole Bld Glucose 175 H 02/11/24 21:23: POC Whole Bld Glucose 192 H 02/11/24 18:16: POC Whole Bld Glucose 222 H Fish Bones: 02/12/24 05:24 02/12/24 05:24 Home Medications and Allergies Home Medications: Ambulatory Orders Albuterol Sulf [Ventolin Hfa Inhaler] 1 - 2 puffs INH Q4HR PRN 02/09/24 Glimepiride [Amaryl] 2 mg PO QPM 02/09/24 Insulin Glargine [Lantus Solostar] 8 unit SUBQ DAILY 02/09/24 Losartan Potassium [Cozaar] 100 mg PO DAILY 02/11/24 metFORMIN [Glucophage] 1,000 mg PO BID 02/11/24 Active Medications Enoxaparin Sodium (Enoxaparin 40 Mg/0.4 Ml Syringe) 40 mg SUBQ DAILY [facility] Last Admin: 02/12/24 10:10 Dose: 40 mg Hydromorphone HCl (Hydromorphone 0.5 Mg/0.5 Ml Syringe) 0.5 mg IVP Q2H PRN PRN Reason: Severe Pain (Level 7-10) Last Admin: 02/12/24 13:01 Dose: 0.5 mg Potassium Chloride/Dextrose/Sod Cl (D5.45ns W/20 Meq Kcl) 1,000 mls @ 125 mls/hr IV .Q8H [facility] Last Admin: 02/12/24 12:10 Dose: 125 mls/hr Acetaminophen (Acetaminophen) 1,000 mg in 100 mls @ 400 mls/hr IV Q6HR [facility] Last Infusion: 02/12/24 12:45 Dose: Infused Ciprofloxacin (Cipro 400 Mg/200 Ml) 400 mg in 200 mls @ 200 mls/hr IV Q12H [facility] Last Infusion: 02/12/24 06:24 Dose: Infused Metronidazole (Flagyl 500 Mg/100 Ml) 500 mg in 100 mls @ 100 mls/hr IV Q8H [facility] Last Infusion: 02/12/24 11:16 Dose: Infused Insulin Glargine-yfgn (Insulin Glargine-Yfgn 300 Unit/3 Ml Pen) 4 unit SUBQ QPM [facility] Last Admin: 02/11/24 21:22 Dose: 4 unit Insulin Human Lispro (Insulin Lispro 300 Unit/3 Ml Pen) 1 - 9 unit SUBQ Q6HR [facility]; Protocol Last Admin: 02/12/24 13:21 Dose: 7 unit Losartan Potassium (Losartan 50 Mg Tablet) 100 mg PO DAILY [facility] Ondansetron HCl (Ondansetron 4 Mg/2 Ml Vial) 4 mg IVP Q6HR PRN PRN Reason: Nausea / Vomiting Last Admin: 02/12/24 08:20 Dose: 4 mg Simethicone (Simethicone 40 Mg/0.6 Ml 30 Ml Bottle) 80 mg PO Q6HR PRN PRN Reason: Gas Sodium Chloride (Sodium Chloride Flush 0.9% 10 Ml Syringe) 10 ml IVP 0100,0900,1700 SHANNAN Last Admin: 02/12/24 08:22 Dose: Not Given Sodium Chloride (Sodium Chloride Flush 0.9% 10 Ml Syringe) 10 ml IVP PRN PRN PRN Reason: NEEDED PER PROVIDER ORDERS Atorvastatin Calcium 10 mg PO QPM 02/11/19 Tramadol HCl 50 - 100 mg PO TID PRN 02/11/19 Glimepiride [Amaryl] 4 mg PO DAILY 10/23/22 Albuterol Sulf [Ventolin Hfa Inhaler] 1 - 2 puffs INH Q4HR PRN 02/09/24 Glimepiride [Amaryl] 2 mg PO QPM 02/09/24 Insulin Glargine [Lantus Solostar] 8 unit SUBQ DAILY 02/09/24 Losartan Potassium [Cozaar] 100 mg PO DAILY 02/11/24 metFORMIN [Glucophage] 1,000 mg PO BID 02/11/24 Allergies/Adverse Reactions: Allergies Allergy/AdvReac Type Severity Reaction Status Date / Time amoxicillin Allergy Hives Verified 09/27/23 09:59 latex Allergy Hives Verified 09/27/23 09:59 liraglutide [From Victoza] Allergy Unknown Verified 09/27/23 09:59 sulfamethoxazole Allergy Hives Verified 09/27/23 09:59 [From Septra] trimethoprim [From Septra] Allergy Hives Verified 09/27/23 09:59 lisinopril AdvReac Unknown Verified 09/27/23 09:59 Anes History & Medical History - Anesthetic History Anesthesia Complications: reports: No previous complications - Medical History Cardiovascular: reports: Hypertension, High cholesterol Pulmonary: reports: Sleep apnea, Other Gastrointestinal: reports: GERD, Diverticulitis Urinary: reports: Kidney stones Neuro: reports: None Musculoskeletal: reports: Osteoarthritis, Fibromyalgia, Osteopenia, Chronic back pain Endocrine/Autoimmune: reports: Type 2 diabetes Blood Disorders: reports: None Skin: reports: Rosacea Smoking Status: Never smoker Psychosocial: reports: Cannabis (occ) - Surgical History General: reports: Cholecystectomy, Colonoscopy Gynecologic: reports: Tubal ligation, 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, Oophrectomy Orthopedic: reports: Arthroscopic surgery, Other Exam General: Alert, Oriented x3 Dental: WNL, Poor dentition Mouth Opening: Greater than 4 Fingerbreadths Neck Mobility: Normal Mallampati classification: II Thyromental Distance: greater than 6 cm Respiratory: Lungs clear Cardiovascular: Regular rate Plan Anesthesia Type: General Consent for Procedure(s) Verified and Reviewed: Yes Code Status: Attempt Resuscitation ASA classification: 3-Severe systemic disease Is this case an emergency?: No
[2024-02-12] MEDS ORDERED: INSULIN REGULAR, HUMAN 300 UNIT/3 ML PEN ONE (14:01)
[2024-02-12] MEDS ORDERED: ROCURONIUM 50 MG/5 ML VIAL ONE (14:04)
[2024-02-12] MEDS ORDERED: ONDANSETRON 4 MG/2 ML VIAL ONE (14:04)
[2024-02-12] MEDS ORDERED: PROPOFOL 200 MG/20 ML VIAL IVP ONE (14:04)
[2024-02-12] MEDS ORDERED: INSULIN REGULAR, HUMAN 300 UNIT/3 ML PEN SUBQ SCH (14:07)
[2024-02-12] MEDS ORDERED: fentaNYL 100 MCG/2 ML VIAL ONE ×2 (14:09→18:21)
[2024-02-12] MEDS: INSULIN LISPRO 300 UNIT/3 ML PEN SUBQ STA (14:29)
[2024-02-12] MEDS ORDERED: PHENYLEPHRINE HCL 0.5 MG/5 ML AMPULE ONE (14:36)
[2024-02-12] MEDS: BUPIVACAINE 0.25% PF 30 ML VIAL SUBQ ONE ×2 (14:49)
[2024-02-12] MEDS: LIDOCAINE 1%-EPI 1:100000 20 ML MDV SUBQ ONE ×2 (14:50)
[2024-02-12] MEDS ORDERED: HYDROmorphone 1 MG/ML CARPUJECT ONE (15:02)
[2024-02-12] MEDS ORDERED: ONDANSETRON 4 MG/2 ML VIAL IVP PRN (15:13)
[2024-02-12] MEDS ORDERED: ePHEDrine 50 MG/ML VIAL IVP PRN (15:13)
[2024-02-12] MEDS ORDERED: ATROPINE ABBOJECT 1 MG/10 ML SYRINGE IVP PRN (15:13)
[2024-02-12] MEDS ORDERED: METOCLOPRAMIDE 10 MG/2 ML VIAL IVP PRN (15:13)
[2024-02-12] MEDS ORDERED: MORPHINE 2 MG/ML CARPUJECT IVP PRN (15:13)
[2024-02-12] MEDS ORDERED: NALOXONE 0.4 MG/ML VIAL IVP PRN (15:13)
[2024-02-12] MEDS ORDERED: LACTATED RINGERS 1,000 ML IV SCH (16:00)
[2024-02-12] MEDS ORDERED: SUGAMMADEX 200 MG/2 ML VIAL IVP ONE (17:51)
[2024-02-12] MEDS ORDERED: KETOROLAC 15 MG/ML VIAL IVP PRN (18:00)
[2024-02-12] MEDS ORDERED: HYDROmorphone 0.5 MG/0.5 ML SYRINGE ONE ×2 (18:00→18:04)
[2024-02-12] MEDS ORDERED: SODIUM CHLORIDE FLUSH 0.9% 10 ML SYRINGE IVP PRN (18:00)
[2024-02-12] MEDS: HYDROmorphone 0.5 MG/0.5 ML SYRINGE IVP PRN (18:02)
--- NOTE | 2024-02-12 18:11 | OPERATIVE REPORT ---
Operative Report - General Admit Date: 02/11/24 Procedure Date: 02/12/24 Planned Procedure: diagnostic laparoscopy, possible exploratory laparotomy, possible bowel repair vs bowel resection Pre-Op Diagnosis: pneumoperitoneum s/p colonoscopy Procedure Performed: diagnostic laparoscopy, laparoscopic primary repair of sigmoid colotomy Post Op Diagnosis: sigmoid colotomy - Procedure Note Primary Surgeon: Latricia Nguyễn DO Secondary Surgeon: Jacky Ann MD Anesthesia Provider: Adriana Baez CRNA Anesthesia Technique: General ET tube, Local Pathology: none IV Fluids (mL): 1,400 Estimated Blood Loss (mL): 30 Urine Output (mL): 200 Drain/Tube Type: Surya Buitrago drain Indications: pneumoperitoneum and nonresolving abdominal pain after colonoscopy Findings: 1cm colotomy at the rectosigmoid junction, medial aspect. Suture repaired primarily in two layers. FRIEDA drain left adjacent to the closure in the pelvis. Complications: none - Other Other Information/Narrative: The patient was brought to the operating room and placed supine on the operating room table with both arms tucked. General anesthesia with endotracheal tube was induced. A yang was placed. A time out was conducted. The abdomen was prepped and draped in sterile fashion. At haywood's point in the left upper quadrant, the skin was injected with local anesthetic and sharply incised, a veress needle was used to insufflate the abdomen to 15mmHg which was tolerated well, then a 5mm trocar was advanced into the peritoneum with a 0 degree laparoscope. There was no entry trauma visualized. Under direct visualization, 2 additional 5mm trocars were placed - a t the mid left abdomen and right lower quadrant, and a 10mm trocar was placed just left of the umbilicus. The abdomen was inspected and bilious green-brown thin succus was seen, mostly in the left gutter. The descending and sigmoid colon were inspected closely, and at the pelvic brim a 1cm colotomy was seen at the medial aspect of the rectosigmoid junction. There was no formed or soft stool in the abdomen. The edges of the colotomy were erythematous but viable, no evidence of tissue necrosis. The full extent of the colotomy was able to be clearly visualized. Decision was made to proceed with primary repair. The colotomy was closed in two layers - first 3-0 silk suture figure of eights x3, followed by a running locking 3-0 strattafix imbricating layer. A 10mm flat FRIEDA drain was laid in the pelvis and adjacent to the repair, brought out through the right lower quadrant trocar incision and secured at the skin with 2-0 nylon. The peritoneum was irrigated with 7L of saline until irrigant returned clear. The 10mm trocar site was closed with a figure of eight 0 Vicryl suture using the 23press device. The remaining trocars were removed. The skin at all incisions was closed with 4-0 monocryl followed by steristrips. Of note, no evidence of peritoneal studding or carcinomatosis was seen (noted given patients history of ovarian cancer in 2013). All sponge and needle counts were correct. The patient tolerated the procedure well. There were no complications. She was awoken from anesthesia and transferred to the PACU in good condition. The yang was left in place. Latricia Nguyễn DO, FACS General Surgeon [facility]
[2024-02-12] MEDS: LACTATED RINGERS 500 ML IV ONE (18:18)
[2024-02-12] MEDS: fentaNYL 100 MCG/2 ML VIAL IVP PRN (18:24)
[2024-02-12] MEDS ORDERED: ACETAMINOPHEN 1,000 MG/100 ML 1,000 MG/100 ML BAG IV ONE (18:28)
--- NOTE | 2024-02-12 18:47 | ANESTHESIA POST OP EVALUATION ---
Anesthesia Post Eval - Post Anesthesia Eval Vitals: Last Vital Signs Temp 36.5 C 02/12/24 13:17 Pulse 105 H 02/12/24 13:17 Resp 24 02/12/24 13:17 BP 169/104 H 02/12/24 13:17 Pulse Ox 94 02/12/24 13:17 O2 Flow Rate CV Function Including HR & BP: Stable Pain Control: Satisfactory Nausea & Vomiting: Negative Mental Status: Baseline Respiratory Status: Airway Patent Hydration Status: Satisfactory Anesthesia Complications: None
[2024-02-12] MEDS: SODIUM CHLORIDE FLUSH 0.9% 10 ML SYRINGE IVP PRN (20:04)
[2024-02-12] MEDS ORDERED: metroNIDAZOLE 500 MG/100 ML 100 ML IV SCH (22:00)
[2024-02-13] MEDS ORDERED: SODIUM CHLORIDE FLUSH 0.9% 10 ML SYRINGE IVP SCH (01:00)
[2024-02-13] MEDS: LORazepam 2 MG/ML VIAL IVP ONE (04:21)
[2024-02-13 06:01] LABS: BASOPHILS % (AUTO) 0.3 %; HGB - HEMOGLOBIN 11.7 g/dL (12.0-16.0); LYMPHOCYTES % (AUTO) 11.9 %; MEAN CORPUSCULAR HGB CONC 32.5 g/dL (32.0-36.0); MEAN CORPUSCULAR VOLUME 89.3 fL (81.0-99.0); MEAN PLATELET VOLUME 11.7 fL (7.9-10.8); MONOCYTES % (AUTO) 5.2 %; NEUTROPHILS % (AUTO) 82.5 %; PLT - PLATELET COUNT 190 10^3/uL (130-450); RED BLOOD COUNT 4.03 10^6/uL (4.20-5.40); RED CELL DISTRIBUTION WIDTH 14.1 % (12.0-15.0); WHITE BLOOD COUNT 8.7 x10^3/uL (4.8-10.8)
[2024-02-13 06:09] LABS: ABNORMAL LYMPHS % (MANUAL) 0 %
[2024-02-13 06:13] LABS: CALCIUM 8.7 mg/dL (8.5-10.3); CREATININE 0.9 mg/dL (0.6-1.3); MAGNESIUM 1.2 mg/dL (1.7-2.3); PHOSPHORUS 2.8 mg/dL (2.5-5.0); POTASSIUM 4.7 mmol/L (3.5-4.5)
[2024-02-13 06:37] LABS: BAND NEUTROPHILS % (MANUAL) 11 %; DIFFERENTIAL COMMENT MANUAL DIFFERENTIAL; LYMPHOCYTES # (MANUAL) 1.3 10^3/uL (1.5-3.5); LYMPHOCYTES % (MANUAL) 15 %; MONOCYTES # (MANUAL) 0.3 10^3/uL (0.0-1.0); PLATELET ESTIMATE, MANUAL NORMAL (130-450,000) (NORMAL); RBC MORPHOLOGY (MULTIPLE) NORMAL APPEARANCE (NORMAL)
[2024-02-13] MEDS: PANTOPRAZOLE 40 MG VIAL IVP SCH (06:54)
[2024-02-13] MEDS: metroNIDAZOLE 500 MG/100 ML 500 MG/100 ML BAG IV SCH (07:06)
[2024-02-13] MEDS: KETOROLAC 15 MG/ML VIAL IVP SCH (08:30)
[2024-02-13] MEDS: MAGNESIUM SULFATE 2 GRAM 2 GM/50 ML BAG IV ONE (08:47)
[2024-02-13] MEDS: INSULIN GLARGINE-YFGN 300 UNIT/3 ML PEN SUBQ SCH (09:26)
[2024-02-13] MEDS: LOSARTAN 50 MG TABLET PO SCH (09:35)
[2024-02-13] MEDS: CIPROFLOXACIN 400 MG/200 ML 400 MG/200 ML BAG IV SCH (09:35)
[2024-02-13] MEDS: SIMETHICONE CHEW 80 MG TABLET PO PRN (16:46)
--- NOTE | 2024-02-13 20:29 | PROVIDER PROGRESS NOTE ---
Subjective - General Admit Date: 02/11/24 Procedure Date: 02/12/24 Post Op Days: 1 Procedure Performed: diagnostic laparoscopy with primary repair of sigmoid colotomy - Other Other Information/Narrative: *seem at 0715 and 1430 today* Overnight was anxious and gave x1 0.5mg ativan; this AM was much more comfortable after having ofirmev and dilaudid. Drain output serosanguinous. Yang output dark yellow with sediment - UrCx from yesterday negative. Tachycardic overnight but HR downtrending with improved pain control. BG still running in 300s this AM. Objective - Patient Data Vital Signs: Vital Signs x48h Temp Pulse Resp BP Pulse Ox 02/13/24 15:24 37.1 C 95 20 143/71 H 98 Weight: Weight 02/11/24 02/12/24 02/13/24 23:59 23:59 23:59 Weight (kg) 99.5 kg 99.5 kg Intake & Output: Intake and Output Totals x24h 02/11/24 02/12/24 02/13/24 23:59 23:59 23:59 Intake Total 0007.836 0643.833 2850 Output Total 650 495 Balance 3634.568 8100.833 2355 - Lab Results Lab Results: 02/13/24 05:43 02/13/24 05:43 Other Lab Results: Lab Results x24hrs 02/13/24 02/13/24 02/13/24 Range/Units 17:54 11:05 05:43 WBC (4.8-10.8) x10^3/uL RBC (4.20-5.40) 10^6/uL Hgb (12.0-16.0) g/dL Hct (37.0-47.0) % MCV (81.0-99.0) fL MCH (27.0-31.0) pg MCHC (32.0-36.0) g/dL RDW (12.0-15.0) % Plt Count (130-450) 10^3/uL MPV (7.9-10.8) fL Neut # (Auto) Lymph # (Auto) [place] # (Auto) Eos # (Auto) Baso # (Auto) Absolute Nucleated RBC Total Counted Band Neuts % (Manual) (0 - 10) % Abnorm Lymph % (Manual) % Nucleated RBC % Neutrophils # (Manual) (1.5-6.6) 10^3/uL Lymphocytes # (Manual) (1.5-3.5) 10^3/uL Monocytes # (Manual) (0.0-1.0) 10^3/uL Eosinophils # (Manual) (0-0.7) 10^3/uL Basophils # (Manual) (0-0.1) 10^3/uL Differential Comment Platelet Estimate (NORMAL) RBC Morph Micro Appear (NORMAL) Sodium 132 L (135-145) mmol/L Potassium 4.7 H (3.5-4.5) mmol/L Chloride 103 (101-111) mmol/L Carbon Dioxide 24 (21-32) mmol/L Anion Gap 5.0 L (6-13) BUN 11 (6-20) mg/dL Creatinine 0.9 (0.6-1.3) mg/dL Estimated GFR (MDRD) 62 L (>89) Glucose 316 H (74-104) mg/dL POC Whole Bld Glucose 142 H 283 H (70 - 100) mg/dL Calcium 8.7 (8.5-10.3) mg/dL Phosphorus 2.8 (2.5-5.0) mg/dL Magnesium 1.2 L (1.7-2.3) mg/dL 02/13/24 02/12/24 02/12/24 Range/Units 05:43 23:57 20:32 WBC 8.7 (4.8-10.8) x10^3/uL RBC 4.03 L (4.20-5.40) 10^6/uL Hgb 11.7 L (12.0-16.0) g/dL Hct 36.0 L (37.0-47.0) % MCV 89.3 (81.0-99.0) fL MCH 29.0 (27.0-31.0) pg MCHC 32.5 (32.0-36.0) g/dL RDW 14.1 (12.0-15.0) % Plt Count 190 (130-450) 10^3/uL MPV 11.7 H (7.9-10.8) fL Neut # (Auto) Not Reportable Lymph # (Auto) Not Reportable [place] # (Auto) Not Reportable Eos # (Auto) Not Reportable Baso # (Auto) Not Reportable Absolute Nucleated RBC Not Reportable Total Counted 100 Band Neuts % (Manual) 11 H (0 - 10) % Abnorm Lymph % (Manual) 0 % Nucleated RBC % Not Reportable Neutrophils # (Manual) 7.0 H (1.5-6.6) 10^3/uL Lymphocytes # (Manual) 1.3 L (1.5-3.5) 10^3/uL Monocytes # (Manual) 0.3 (0.0-1.0) 10^3/uL Eosinophils # (Manual) 0.0 (0-0.7) 10^3/uL Basophils # (Manual) 0.0 (0-0.1) 10^3/uL Differential Comment MANUAL DIFFERENTIAL Platelet Estimate NORMAL (130-450,000) (NORMAL) RBC Morph Micro Appear NORMAL APPEARANCE (NORMAL) Sodium (135-145) mmol/L Potassium (3.5-4.5) mmol/L Chloride (101-111) mmol/L Carbon Dioxide (21-32) mmol/L Anion Gap (6-13) BUN (6-20) mg/dL Creatinine (0.6-1.3) mg/dL Estimated GFR (MDRD) (>89) Glucose (74-104) mg/dL POC Whole Bld Glucose 264 H 231 H (70 - 100) mg/dL Calcium (8.5-10.3) mg/dL Phosphorus (2.5-5.0) mg/dL Magnesium (1.7-2.3) mg/dL - Current Medications Current Medications: Current Medications Generic Name Dose Route Start Last Admin Trade Name Freq PRN Reason Stop Dose Admin Enoxaparin Sodium 40 mg 02/12/24 09:00 02/13/24 09:35 Enoxaparin 40 Mg/0.4 Ml Syringe SUBQ 40 mg DAILY SHANNAN Administration Hydromorphone HCl 0.5 mg 02/11/24 08:35 02/13/24 18:29 Hydromorphone 0.5 Mg/0.5 Ml Syringe IVP 0.5 mg Q2H PRN Administration Severe Pain (Level 7-10) Potassium Chloride/Dextrose/Sod Cl 1,000 mls @ 125 mls/hr 02/11/24 15:00 02/13/24 18:14 D5.45ns W/20 Meq Kcl IV 125 mls/hr .Q8H SHANNAN Administration Acetaminophen 1,000 mg in 100 mls @ 400 mls/hr 02/11/24 18:00 02/13/24 18:30 Acetaminophen IV Infused Q6HR SHANNAN Infusion Metronidazole 500 mg in 100 mls @ 100 mls/hr 02/13/24 06:00 02/13/24 15:42 Flagyl 500 Mg/100 Ml IV Infused Q8H SHANNAN Infusion Ciprofloxacin 400 mg in 200 mls @ 200 mls/hr 02/13/24 09:00 02/13/24 10:59 Cipro 400 Mg/200 Ml IV Infused Q12H SHANNAN Infusion Insulin Glargine-yfgn 10 unit 02/13/24 09:00 02/13/24 09:26 Insulin Glargine-Yfgn 300 Unit/3 Ml Pen SUBQ 10 unit BID SHANNAN Administration Insulin Human Lispro 1 - 9 unit 02/12/24 12:00 02/13/24 18:44 Insulin Lispro 300 Unit/3 Ml Pen SUBQ 1 unit Q6HR SHANNAN Administration Protocol Ketorolac Tromethamine 15 mg 02/13/24 08:00 02/13/24 20:02 Ketorolac 15 Mg/Ml Vial IVP 02/18/24 07:59 15 mg Q6H SHANNAN Administration Losartan Potassium 100 mg 02/13/24 09:00 02/13/24 09:35 Losartan 50 Mg Tablet PO 100 mg DAILY SHANNAN Administration Ondansetron HCl 4 mg 02/11/24 08:35 02/13/24 18:46 Ondansetron 4 Mg/2 Ml Vial IVP 4 mg Q6HR PRN Administration Nausea / Vomiting Pantoprazole Sodium 40 mg 02/13/24 07:00 02/13/24 06:54 Pantoprazole 40 Mg Vial IVP 40 mg QDAC SHANNAN Administration Simethicone 80 mg 02/13/24 16:39 02/13/24 16:46 Simethicone Chew 80 Mg Tablet PO 80 mg Q6HR PRN Administration Gas Sodium Chloride 10 ml 02/11/24 17:00 02/13/24 18:15 Sodium Chloride Flush 0.9% 10 Ml Syringe IVP 10 ml 0100,0900,1700 SHANNAN Administration Sodium Chloride 10 ml 02/11/24 14:36 02/12/24 20:04 Sodium Chloride Flush 0.9% 10 Ml Syringe IVP 10 ml PRN PRN Administration NEEDED PER PROVIDER ORDERS - Physical Exam Wound/Incisions: positive: Healing well, Dressing dry and intact, Other (FRIEDA drain serosanguinous) General Appearance: positive: No acute distress, Alert Respiratory: positive: No respiratory distress, Breath sounds nml Cardiovascular: positive: Regular rate & rhythm Abdomen: positive: Tenderness (appropriate periincisional ttp, no distension) Skin: positive: Color nml, No rash Extremities: positive: Full ROM, Nml appearance Neurologic/Psychiatric: positive: Oriented x3 ABX Reporting Has patient been on IV antibiotics over the past 48 hours?: Yes Impression/Plan - Problem List Problem List: 68yoF PPD2 from diagnostic colonoscopy and POD1 s/p laparoscopic repair of iatrogenic sigmoid colotomy. Mild tachycardia with anxiety and pain without hypotension, tachycardia improving with pain control throughout the day. No evidence of leak from repair site based on drain output, no evidence of post of bleeding either. BG remains a challenge to control. UrCx from yesterday was normal, however urine still very dark with sediment, though creatinine is normal. - Bowel rest with npo, D5 1/2NS+K @ 125/hr (x48hrs from repair) - IV cipro/flagyl for sigmoid perforation with spilled succus - increased Lantus to 10BID with MD-SSI - scheduled IV tylenol and toradol, prn dilaudid - home losartan - lovenox ppd - IS/RT - needs to ambulate today - keep yang another 24hrs to ensure sediment clearing - PT consult - daily CBC/CMP Latricia Nguyễn DO, FACS General Surgeon [facility]
--- NOTE | 2024-02-14 08:27 | PROVIDER PROGRESS NOTE ---
Subjective - General Admit Date: 02/11/24 Procedure Date: 02/12/24 Post Op Days: 2 Procedure Performed: diagnostic laparoscopy with primary repair of sigmoid colotomy - Review of Systems Wound/Incisions: positive: Healing well, Dressing dry and intact - Other Other Information/Narrative: Pain control is improved, no nausea, up in chair with no distress this morning. Vital stable and afebrile. Urine is clearing/no sediment this AM. Has not ambulated. Brayden drainage is more murkey brown this AM. Objective - Patient Data Reviewed Vital Signs: Yes Vital Signs: Vital Signs x48h Temp Pulse Resp BP Pulse Ox 02/14/24 07:41 36.7 C 95 18 107/7 L 95 02/14/24 04:39 36.8 C 98 20 144/80 H 94 Weight: Weight 02/12/24 02/13/24 02/14/24 23:59 23:59 23:59 Weight (kg) 99.5 kg Intake & Output: Intake and Output Totals x24h 02/12/24 02/13/24 02/14/24 23:59 23:59 23:59 Intake Total 4120.833 3841.666 1052.084 Output Total 650 810 110 Balance 3470.833 3031.666 942.084 - Lab Results Lab Results: 02/14/24 08:35 02/14/24 08:35 Other Lab Results: Lab Results x24hrs 02/14/24 02/13/24 02/13/24 Range/Units 04:41 23:15 20:54 POC Whole Bld Glucose 223 H 219 H 201 H (70 - 100) mg/dL 02/13/24 02/13/24 Range/Units 17:54 11:05 POC Whole Bld Glucose 142 H 283 H (70 - 100) mg/dL - Current Medications Current Medications: Current Medications Generic Name Dose Route Start Last Admin Trade Name Freq PRN Reason Stop Dose Admin Enoxaparin Sodium 40 mg 02/12/24 09:00 02/14/24 08:20 Enoxaparin 40 Mg/0.4 Ml Syringe SUBQ 40 mg DAILY SHANNAN Administration Hydromorphone HCl 0.5 mg 02/11/24 08:35 02/14/24 01:04 Hydromorphone 0.5 Mg/0.5 Ml Syringe IVP 0.5 mg Q2H PRN Administration Severe Pain (Level 7-10) Potassium Chloride/Dextrose/Sod Cl 1,000 mls @ 125 mls/hr 02/11/24 15:00 02/14/24 06:51 D5.45ns W/20 Meq Kcl IV 0 mls/hr .Q8H SHANNAN Infusion Acetaminophen 1,000 mg in 100 mls @ 400 mls/hr 02/11/24 18:00 02/14/24 06:50 Acetaminophen IV 400 mls/hr Q6HR SHANNAN Administration Metronidazole 500 mg in 100 mls @ 100 mls/hr 02/13/24 06:00 02/14/24 07:18 Flagyl 500 Mg/100 Ml IV Infused Q8H SHANNAN Infusion Ciprofloxacin 400 mg in 200 mls @ 200 mls/hr 02/13/24 09:00 02/14/24 08:20 Cipro 400 Mg/200 Ml IV 200 mls/hr Q12H SHANNAN Administration Insulin Human Lispro 1 - 9 unit 02/12/24 12:00 02/14/24 06:05 Insulin Lispro 300 Unit/3 Ml Pen SUBQ 3 unit Q6HR SHANNAN Administration Protocol Ketorolac Tromethamine 15 mg 02/13/24 08:00 02/14/24 07:50 Ketorolac 15 Mg/Ml Vial IVP 02/18/24 07:59 15 mg Q6H SHANNAN Administration Losartan Potassium 100 mg 02/13/24 09:00 02/14/24 08:20 Losartan 50 Mg Tablet PO 100 mg DAILY SHANNAN Administration Ondansetron HCl 4 mg 02/11/24 08:35 02/13/24 18:46 Ondansetron 4 Mg/2 Ml Vial IVP 4 mg Q6HR PRN Administration Nausea / Vomiting Pantoprazole Sodium 40 mg 02/13/24 07:00 02/14/24 06:10 Pantoprazole 40 Mg Vial IVP 40 mg QDAC SHANNAN Administration Simethicone 80 mg 02/13/24 16:39 02/14/24 01:36 Simethicone Chew 80 Mg Tablet PO 80 mg Q6HR PRN Administration Gas Sodium Chloride 10 ml 02/11/24 17:00 02/14/24 08:21 Sodium Chloride Flush 0.9% 10 Ml Syringe IVP 10 ml 0100,0900,1700 SHANNAN Administration Sodium Chloride 10 ml 02/11/24 14:36 02/12/24 20:04 Sodium Chloride Flush 0.9% 10 Ml Syringe IVP 10 ml PRN PRN Administration NEEDED PER PROVIDER ORDERS - Physical Exam Wound/Incisions: positive: Healing well, Other (BRAYDEN drain brown murkey, low volume (<100cc/24hrs)) General Appearance: positive: No acute distress, Alert Respiratory: positive: No respiratory distress, Breath sounds nml Cardiovascular: positive: Regular rate & rhythm Abdomen: positive: No distention, Tenderness (minimal) Neurologic/Psychiatric: positive: Oriented x3 ABX Reporting Has patient been on IV antibiotics over the past 48 hours?: Yes Impression/Plan - Problem List Problem List: 68yoF PPD3 from diagnostic colonoscopy and POD2 s/p laparoscopic repair of iatrogenic sigmoid colotomy. Overall clinically improved - pain control better and minimal abdominal ttp, HDN/AF, BG downtrending with increased insulin (300s to 200s), WBC normal/down, creatinine normal, urine sediment clearing. BRAYDEN drainage is brown this AM - representing either a failure of sigmoid closure vs clearance of succus throughout the abdomen prior to return to OR for sigmoid repair - given overall clinical improvement will watch the drain for now to see if it clears vs continues to be brown. With any sign of clinical decompensation (fever, rise in WBC, worsening pain) will need to rescan with rectal contrast vs return to OR. If this is a leak it is controlled with drain + abx at this time. If return to OR plan will be for sigmoid resection with either end colostomy vs primary repair and diverting ileostomy - either way plan for stool diversion if we have to return to OR. - Bowel rest with npo, D5 1/2NS+K @ 125/hr - IV cipro/flagyl for sigmoid perforation with spilled succus - increased Lantus to 15BID with MD-SSI - scheduled IV tylenol and toradol, prn dilaudid - home losartan + statin - lovenox ppx - IS/RT - needs to ambulate today - DC yang (sediment cleared, creatinine normal) - PT consult - daily CBC/CMP Latricia Nguyễn DO FACS General Surgeon [facility]
[2024-02-14 08:40] LABS: HCT - HEMATOCRIT 31.2 % (37.0-47.0); HGB - HEMOGLOBIN 9.9 g/dL (12.0-16.0); MEAN CORPUSCULAR HEMOGLOBIN 28.7 pg (27.0-31.0); MEAN CORPUSCULAR HGB CONC 31.7 g/dL (32.0-36.0); MEAN CORPUSCULAR VOLUME 90.4 fL (81.0-99.0); MEAN PLATELET VOLUME 11.7 fL (7.9-10.8); RED BLOOD COUNT 3.45 10^6/uL (4.20-5.40); RED CELL DISTRIBUTION WIDTH 14.2 % (12.0-15.0); WHITE BLOOD COUNT 6.7 x10^3/uL (4.8-10.8)
[2024-02-14 08:53] LABS: CALCIUM 8.1 mg/dL (8.5-10.3); CREATININE 0.8 mg/dL (0.6-1.3); MAGNESIUM 1.5 mg/dL (1.7-2.3); PHOSPHORUS 1.7 mg/dL (2.5-5.0); POTASSIUM 4.6 mmol/L (3.5-4.5)
[2024-02-14] MEDS ORDERED: MAGNESIUM SULFATE 1 GM/2 ML VIAL IVP STA (08:57)
[2024-02-14] MEDS: MAGNESIUM SULFATE 2 GRAM 2 GM/50 ML BAG IV STA (10:07)
[2024-02-14] MEDS: INSULIN GLARGINE-YFGN 300 UNIT/3 ML PEN SUBQ ONE (10:20)
[2024-02-14] MEDS: ATORVASTATIN 10 MG TABLET PO SCH (20:36)
[2024-02-14] MEDS: INSULIN GLARGINE-YFGN 300 UNIT/3 ML PEN SUBQ SCH (20:39)
[2024-02-15 05:13] LABS: HCT - HEMATOCRIT 32.1 % (37.0-47.0); HGB - HEMOGLOBIN 10.6 g/dL (12.0-16.0); MEAN CORPUSCULAR HEMOGLOBIN 29.7 pg (27.0-31.0); MEAN CORPUSCULAR VOLUME 89.9 fL (81.0-99.0); MEAN PLATELET VOLUME 11.2 fL (7.9-10.8); RED BLOOD COUNT 3.57 10^6/uL (4.20-5.40); RED CELL DISTRIBUTION WIDTH 13.8 % (12.0-15.0); WHITE BLOOD COUNT 7.8 x10^3/uL (4.8-10.8)
[2024-02-15 05:29] LABS: CALCIUM 8.4 mg/dL (8.5-10.3); CREATININE 0.9 mg/dL (0.6-1.3); MAGNESIUM 1.8 mg/dL (1.7-2.3); PHOSPHORUS 1.8 mg/dL (2.5-5.0); POTASSIUM 4.3 mmol/L (3.5-4.5)
[2024-02-15] MEDS: INSULIN GLARGINE-YFGN 300 UNIT/3 ML PEN SUBQ SCH (09:10)
--- NOTE | 2024-02-15 10:21 | PROVIDER PROGRESS NOTE ---
Subjective - General Admit Date: 02/11/24 Procedure Date: 02/12/24 Post Op Days: 3 Procedure Performed: diagnostic laparoscopy with primary repair of sigmoid colotomy - Review of Systems Wound/Incisions: positive: Healing well, Other (FRIEDA drain alternating between serosanguinous and brown murkey, low volume (<100cc/24hrs)) - Other Other Information/Narrative: Some nausea with dry heaving overnight, controlled with zofran. Some loose stools. Overall abdominal pain continues to improve. No fevers, HD normal. BG downtrending to just under 200 now. Further discussion this morning about her baseline mobility - at home she uses a wheelchair (has one on both floors) and a chair lift for the stairs (currently broken so family members assist on stairs); only leaves the house for doctors appts and uses a wheelchair out of the house as well; described limitation is foot and ankle misalignment/pain that impacts knees and hips as well. Objective - Patient Data Reviewed Vital Signs: Yes Vital Signs: Vital Signs x48h Temp Pulse Resp BP Pulse Ox 02/15/24 07:37 36.6 C 87 18 131/64 H 97 02/15/24 03:37 36.7 C 91 20 151/77 H 97 Intake & Output: Intake and Output Totals x24h 02/13/24 02/14/24 02/15/24 23:59 23:59 23:59 Intake Total 3841.666 3787.500 1270.834 Output Total 810 365 111 Balance 3031.666 3422.500 1159.834 - Lab Results Lab Results: 02/15/24 04:50 02/15/24 04:50 Other Lab Results: Lab Results x24hrs 02/15/24 02/15/24 02/15/24 Range/Units 05:42 04:50 04:50 WBC 7.8 (4.8-10.8) x10^3/uL RBC 3.57 L (4.20-5.40) 10^6/uL Hgb 10.6 L (12.0-16.0) g/dL Hct 32.1 L (37.0-47.0) % MCV 89.9 (81.0-99.0) fL MCH 29.7 (27.0-31.0) pg MCHC 33.0 (32.0-36.0) g/dL RDW 13.8 (12.0-15.0) % Plt Count 170 (130-450) 10^3/uL MPV 11.2 H (7.9-10.8) fL Sodium 132 L (135-145) mmol/L Potassium 4.3 (3.5-4.5) mmol/L Chloride 107 (101-111) mmol/L Carbon Dioxide 21 (21-32) mmol/L Anion Gap 4.0 L (6-13) BUN 15 (6-20) mg/dL Creatinine 0.9 (0.6-1.3) mg/dL Estimated GFR (MDRD) 62 L (>89) Glucose 212 H (74-104) mg/dL POC Whole Bld Glucose 190 H (70 - 100) mg/dL Calcium 8.4 L (8.5-10.3) mg/dL Phosphorus 1.8 L (2.5-5.0) mg/dL Magnesium 1.8 (1.7-2.3) mg/dL 02/14/24 02/14/24 02/14/24 Range/Units 23:43 20:25 18:04 WBC (4.8-10.8) x10^3/uL RBC (4.20-5.40) 10^6/uL Hgb (12.0-16.0) g/dL Hct (37.0-47.0) % MCV (81.0-99.0) fL MCH (27.0-31.0) pg MCHC (32.0-36.0) g/dL RDW (12.0-15.0) % Plt Count (130-450) 10^3/uL MPV (7.9-10.8) fL Sodium (135-145) mmol/L Potassium (3.5-4.5) mmol/L Chloride (101-111) mmol/L Carbon Dioxide (21-32) mmol/L Anion Gap (6-13) BUN (6-20) mg/dL Creatinine (0.6-1.3) mg/dL Estimated GFR (MDRD) (>89) Glucose (74-104) mg/dL POC Whole Bld Glucose 223 H 232 H 267 H (70 - 100) mg/dL Calcium (8.5-10.3) mg/dL Phosphorus (2.5-5.0) mg/dL Magnesium (1.7-2.3) mg/dL 02/14/24 Range/Units 11:11 WBC (4.8-10.8) x10^3/uL RBC (4.20-5.40) 10^6/uL Hgb (12.0-16.0) g/dL Hct (37.0-47.0) % MCV (81.0-99.0) fL MCH (27.0-31.0) pg MCHC (32.0-36.0) g/dL RDW (12.0-15.0) % Plt Count (130-450) 10^3/uL MPV (7.9-10.8) fL Sodium (135-145) mmol/L Potassium (3.5-4.5) mmol/L Chloride (101-111) mmol/L Carbon Dioxide (21-32) mmol/L Anion Gap (6-13) BUN (6-20) mg/dL Creatinine (0.6-1.3) mg/dL Estimated GFR (MDRD) (>89) Glucose (74-104) mg/dL POC Whole Bld Glucose 271 H (70 - 100) mg/dL Calcium (8.5-10.3) mg/dL Phosphorus (2.5-5.0) mg/dL Magnesium (1.7-2.3) mg/dL - Current Medications Current Medications: Current Medications Generic Name Dose Route Start Last Admin Trade Name Freq PRN Reason Stop Dose Admin Atorvastatin Calcium 10 mg 02/14/24 21:00 02/14/24 20:36 Atorvastatin 10 Mg Tablet PO 10 mg QPM SHANNAN Administration Enoxaparin Sodium 40 mg 02/12/24 09:00 02/15/24 08:35 Enoxaparin 40 Mg/0.4 Ml Syringe SUBQ 40 mg DAILY SHANNAN Administration Hydromorphone HCl 0.5 mg 02/11/24 08:35 02/14/24 19:00 Hydromorphone 0.5 Mg/0.5 Ml Syringe IVP 0.5 mg Q2H PRN Administration Severe Pain (Level 7-10) Potassium Chloride/Dextrose/Sod Cl 1,000 mls @ 125 mls/hr 02/11/24 15:00 02/15/24 09:55 D5.45ns W/20 Meq Kcl IV 125 mls/hr .Q8H SHANNAN Administration Acetaminophen 1,000 mg in 100 mls @ 400 mls/hr 02/11/24 18:00 02/15/24 07:30 Acetaminophen IV Infused Q6HR SHANNAN Infusion Metronidazole 500 mg in 100 mls @ 100 mls/hr 02/13/24 06:00 02/15/24 07:35 Flagyl 500 Mg/100 Ml IV Infused Q8H SHANNAN Infusion Ciprofloxacin 400 mg in 200 mls @ 200 mls/hr 02/13/24 09:00 02/15/24 10:05 Cipro 400 Mg/200 Ml IV Infused Q12H SHANNAN Infusion Insulin Glargine-yfgn 20 unit 02/15/24 09:00 02/15/24 09:10 Insulin Glargine-Yfgn 300 Unit/3 Ml Pen SUBQ 20 unit BID SHANNAN Administration Insulin Human Lispro 1 - 9 unit 02/12/24 12:00 02/15/24 06:09 Insulin Lispro 300 Unit/3 Ml Pen SUBQ 3 unit Q6HR SHANNAN Administration Protocol Ketorolac Tromethamine 15 mg 02/13/24 08:00 02/15/24 08:33 Ketorolac 15 Mg/Ml Vial IVP 02/18/24 07:59 15 mg Q6H SHANNAN Administration Losartan Potassium 100 mg 02/13/24 09:00 02/15/24 08:32 Losartan 50 Mg Tablet PO 100 mg DAILY SHANNAN Administration Ondansetron HCl 4 mg 02/11/24 08:35 02/15/24 08:01 Ondansetron 4 Mg/2 Ml Vial IVP 4 mg Q6HR PRN Administration Nausea / Vomiting Pantoprazole Sodium 40 mg 02/13/24 07:00 02/15/24 06:15 Pantoprazole 40 Mg Vial IVP 40 mg QDAC SHANNAN Administration Simethicone 80 mg 02/13/24 16:39 02/14/24 01:36 Simethicone Chew 80 Mg Tablet PO 80 mg Q6HR PRN Administration Gas Sodium Chloride 10 ml 02/11/24 17:00 02/15/24 09:04 Sodium Chloride Flush 0.9% 10 Ml Syringe IVP 10 ml 0100,0900,1700 SHANNAN Administration Sodium Chloride 10 ml 02/11/24 14:36 02/12/24 20:04 Sodium Chloride Flush 0.9% 10 Ml Syringe IVP 10 ml PRN PRN Administration NEEDED PER PROVIDER ORDERS - Physical Exam Wound/Incisions: positive: Healing well, Other (FRIEDA drain alternating between ssf and brown) General Appearance: positive: No acute distress, Alert Respiratory: positive: No respiratory distress, Breath sounds nml Cardiovascular: positive: Regular rate & rhythm Abdomen: positive: No distention, Tenderness (minimal) Skin: positive: Color nml Neurologic/Psychiatric: positive: Oriented x3 ABX Reporting Has patient been on IV antibiotics over the past 48 hours?: Yes Impression/Plan - Problem List Problem List: 68yoF PPD4 from diagnostic colonoscopy and POD3 s/p laparoscopic repair of iatrogenic sigmoid colotomy. Overall clinically stable - abdominal pain continues to steadily improve with minimal abdominal ttp, HDN/AF, BG downtrending with increased insulin (200s to 100s), WBC normal, creatinine normal - no signs of sepsis. FRIEDA drainage is intermittently brown then serosanguinous last 24hrs. She has intermittent nausea with positional changes. Given no signs of sepsis, will continue to monitor drain output for now. With any sign of clinical deco mpensation (fever, rise in WBC, worsening pain) will need to rescan with rectal contrast vs return to OR. If this is a leak, it is controlled with drain + abx at this time. If return to OR is required, plan will be for sigmoid resection with either end colostomy vs primary anastomosis and diverting ileostomy vs diverting ileostomy alone - either way plan for stool diversion. I worry that a larger abdominal surgery will be difficult to recover from for her, with her baseline lack of mobility, poorly controlled diabetes, and obesity. - Bowel rest with npo, D5 1/2NS+K @ 125/hr - consider TPN in the next 1-2 days based on clinical trajectory - IV cipro/flagyl for sigmoid perforation with spilled succus - increased Lantus to 20BID with MD-SSI - scheduled IV tylenol and toradol, prn dilaudid - home losartan + statin - lovenox ppx - IS/RT - PT consult - largely wheelchair bound at baseline - daily CBC/CMP - check cdiff today - baseline prealbumin and CRP with next set of labs Latricia Nguyễn DO FACS General Surgeon [facility]
[2024-02-16 04:40] LABS: HCT - HEMATOCRIT 30.4 % (37.0-47.0); HGB - HEMOGLOBIN 9.6 g/dL (12.0-16.0); MEAN CORPUSCULAR HEMOGLOBIN 28.4 pg (27.0-31.0); MEAN CORPUSCULAR HGB CONC 31.6 g/dL (32.0-36.0); MEAN CORPUSCULAR VOLUME 89.9 fL (81.0-99.0); MEAN PLATELET VOLUME 10.5 fL (7.9-10.8); RED BLOOD COUNT 3.38 10^6/uL (4.20-5.40); WHITE BLOOD COUNT 8.6 x10^3/uL (4.8-10.8)
[2024-02-16 04:52] LABS: MAGNESIUM 1.6 mg/dL (1.7-2.3)
[2024-02-16 04:58] LABS: CALCIUM 8.1 mg/dL (8.5-10.3); CREATININE 0.9 mg/dL (0.6-1.3); CRP - C-REACTIVE PROTEIN 10.3 mg/dL (<0.5); PHOSPHORUS 2.4 mg/dL (2.5-5.0); POTASSIUM 4.5 mmol/L (3.5-4.5)
[2024-02-16] MEDS ORDERED: MAGNESIUM SULFATE 1 GM/2 ML VIAL IVP STA (10:04)
[2024-02-16] MEDS: MAGNESIUM SULFATE 2 GRAM 2 GM/50 ML BAG IV ONE (11:26)
--- NOTE | 2024-02-16 14:32 | PROVIDER PROGRESS NOTE ---
Subjective - General Admit Date: 02/11/24 Procedure Date: 02/12/24 Post Op Days: 4 Procedure Performed: diagnostic laparoscopy with primary repair of sigmoid colotomy - Review of Systems Wound/Incisions: positive: Healing well, Other (FRIEDA drain ssf, ~150) - Other Other Information/Narrative: Abdominal pain continues to improve - minimal. Mild nausea when getting up to use the bathroom, but overall improved from yesterday. No fever, no tachycardia. BG now into the 100s. FRIEDA drain output is ssf this morning. Objective - Patient Data Reviewed Vital Signs: Yes Vital Signs: Vital Signs x48h Temp Pulse Resp BP Pulse Ox 02/16/24 09:31 36.5 C 91 20 97 02/16/24 09:03 89 160/87 H Intake & Output: Intake and Output Totals x24h 02/14/24 02/15/24 02/16/24 23:59 23:59 23:59 Intake Total 3787.500 3697.918 1549.999 Output Total 365 391 797 Balance 3422.500 3306.918 752.999 - Lab Results Lab Results: 02/16/24 04:25 02/16/24 04:25 Other Lab Results: Lab Results x24hrs 02/16/24 02/16/24 02/16/24 Range/Units 12:01 05:39 04:25 WBC (4.8-10.8) x10^3/uL RBC (4.20-5.40) 10^6/uL Hgb (12.0-16.0) g/dL Hct (37.0-47.0) % MCV (81.0-99.0) fL MCH (27.0-31.0) pg MCHC (32.0-36.0) g/dL RDW (12.0-15.0) % Plt Count (130-450) 10^3/uL MPV (7.9-10.8) fL Sodium (135-145) mmol/L Potassium (3.5-4.5) mmol/L Chloride (101-111) mmol/L Carbon Dioxide (21-32) mmol/L Anion Gap (6-13) BUN (6-20) mg/dL Creatinine (0.6-1.3) mg/dL Estimated GFR (MDRD) (>89) Glucose (74-104) mg/dL POC Whole Bld Glucose 178 H 122 H (70 - 100) mg/dL Calcium (8.5-10.3) mg/dL Phosphorus (2.5-5.0) mg/dL Magnesium (1.7-2.3) mg/dL C-Reactive Protein (<0.5) mg/dL Prealbumin 7 L (17-34) mg/dL 02/16/24 02/16/24 02/15/24 Range/Units 04:25 04:25 23:46 WBC 8.6 (4.8-10.8) x10^3/uL RBC 3.38 L (4.20-5.40) 10^6/uL Hgb 9.6 L (12.0-16.0) g/dL Hct 30.4 L (37.0-47.0) % MCV 89.9 (81.0-99.0) fL MCH 28.4 (27.0-31.0) pg MCHC 31.6 L (32.0-36.0) g/dL RDW 14.0 (12.0-15.0) % Plt Count 194 (130-450) 10^3/uL MPV 10.5 (7.9-10.8) fL Sodium 133 L (135-145) mmol/L Potassium 4.5 (3.5-4.5) mmol/L Chloride 110 (101-111) mmol/L Carbon Dioxide 19 L (21-32) mmol/L Anion Gap 4.0 L (6-13) BUN 13 (6-20) mg/dL Creatinine 0.9 (0.6-1.3) mg/dL Estimated GFR (MDRD) 62 L (>89) Glucose 126 H (74-104) mg/dL POC Whole Bld Glucose 153 H (70 - 100) mg/dL Calcium 8.1 L (8.5-10.3) mg/dL Phosphorus 2.4 L (2.5-5.0) mg/dL Magnesium 1.6 L (1.7-2.3) mg/dL C-Reactive Protein 10.3 H (<0.5) mg/dL Prealbumin (17-34) mg/dL 02/15/24 02/15/24 Range/Units 20:50 17:36 WBC (4.8-10.8) x10^3/uL RBC (4.20-5.40) 10^6/uL Hgb (12.0-16.0) g/dL Hct (37.0-47.0) % MCV (81.0-99.0) fL MCH (27.0-31.0) pg MCHC (32.0-36.0) g/dL RDW (12.0-15.0) % Plt Count (130-450) 10^3/uL MPV (7.9-10.8) fL Sodium (135-145) mmol/L Potassium (3.5-4.5) mmol/L Chloride (101-111) mmol/L Carbon Dioxide (21-32) mmol/L Anion Gap (6-13) BUN (6-20) mg/dL Creatinine (0.6-1.3) mg/dL Estimated GFR (MDRD) (>89) Glucose (74-104) mg/dL POC Whole Bld Glucose 162 H 214 H (70 - 100) mg/dL Calcium (8.5-10.3) mg/dL Phosphorus (2.5-5.0) mg/dL Magnesium (1.7-2.3) mg/dL C-Reactive Protein (<0.5) mg/dL Prealbumin (17-34) mg/dL - Current Medications Current Medications: Current Medications Generic Name Dose Route Start Last Admin Trade Name Freq PRN Reason Stop Dose Admin Atorvastatin Calcium 10 mg 02/14/24 21:00 02/15/24 20:40 Atorvastatin 10 Mg Tablet PO 10 mg QPM SHANNAN Administration Enoxaparin Sodium 40 mg 02/12/24 09:00 02/16/24 09:06 Enoxaparin 40 Mg/0.4 Ml Syringe SUBQ 40 mg DAILY SHANNAN Administration Hydromorphone HCl 0.5 mg 02/11/24 08:35 02/16/24 04:04 Hydromorphone 0.5 Mg/0.5 Ml Syringe IVP 0.5 mg Q2H PRN Administration Severe Pain (Level 7-10) Potassium Chloride/Dextrose/Sod Cl 1,000 mls @ 125 mls/hr 02/11/24 15:00 02/16/24 09:29 D5.45ns W/20 Meq Kcl IV 125 mls/hr .Q8H SHANNAN Administration Acetaminophen 1,000 mg in 100 mls @ 400 mls/hr 02/11/24 18:00 02/16/24 07:22 Acetaminophen IV Infused Q6HR SHANNAN Infusion Metronidazole 500 mg in 100 mls @ 100 mls/hr 02/13/24 06:00 02/16/24 07:53 Flagyl 500 Mg/100 Ml IV Infused Q8H SHANNAN Infusion Ciprofloxacin 400 mg in 200 mls @ 200 mls/hr 02/13/24 09:00 02/16/24 10:54 Cipro 400 Mg/200 Ml IV Infused Q12H SHANNAN Infusion Insulin Glargine-yfgn 20 unit 02/15/24 09:00 02/16/24 09:07 Insulin Glargine-Yfgn 300 Unit/3 Ml Pen SUBQ 20 unit BID SHANNAN Administration Insulin Human Lispro 1 - 9 unit 02/12/24 12:00 02/16/24 12:18 Insulin Lispro 300 Unit/3 Ml Pen SUBQ 1 unit Q6HR SHANNAN Administration Protocol Ketorolac Tromethamine 15 mg 02/13/24 08:00 02/16/24 08:57 Ketorolac 15 Mg/Ml Vial IVP 02/18/24 07:59 15 mg Q6H SHANNAN Administration Losartan Potassium 100 mg 02/13/24 09:00 02/16/24 09:06 Losartan 50 Mg Tablet PO 100 mg DAILY SHANNAN Administration Ondansetron HCl 4 mg 02/11/24 08:35 02/16/24 04:01 Ondansetron 4 Mg/2 Ml Vial IVP 4 mg Q6HR PRN Administration Nausea / Vomiting Pantoprazole Sodium 40 mg 02/13/24 07:00 02/16/24 06:50 Pantoprazole 40 Mg Vial IVP 40 mg QDAC SHANNAN Administration Simethicone 80 mg 02/13/24 16:39 02/16/24 12:24 Simethicone Chew 80 Mg Tablet PO 80 mg Q6HR PRN Administration Gas Sodium Chloride 10 ml 02/11/24 17:00 02/16/24 09:07 Sodium Chloride Flush 0.9% 10 Ml Syringe IVP 10 ml 0100,0900,1700 SHANNAN Administration Sodium Chloride 10 ml 02/11/24 14:36 02/12/24 20:04 Sodium Chloride Flush 0.9% 10 Ml Syringe IVP 10 ml PRN PRN Administration NEEDED PER PROVIDER ORDERS - Physical Exam Wound/Incisions: positive: Healing well, Other (FRIEDA drain ssf) General Appearance: positive: No acute distress, Alert Respiratory: positive: No respiratory distress, Breath sounds nml Cardiovascular: positive: Regular rate & rhythm Abdomen: positive: Non-tender, No distention Neurologic/Psychiatric: positive: Oriented x3 ABX Reporting Has patient been on IV antibiotics over the past 48 hours?: Yes Impression/Plan - Problem List Problem List: 68yoF PPD5 from diagnostic colonoscopy and POD4 s/p laparoscopic repair of iatrogenic sigmoid colotomy. Overall clinically stable - abdominal pain continues to steadily improve with minimal abdominal ttp, HDN/AF, BG downtre nding with increased insulin (100s), WBC normal, creatinine normal - no signs of sepsis. Cdiff negative yesterday. Prealbumin 7 with CRP of 10. FRIEDA drainage today has returned to ssf, after intermittent brown drainage the last two days, and continues to be clinically well with no signs of sepsis. Will cautiously trial clears today - Clear liquids (will need TPN in next 48hrs if not tolerated) - D5 1/2NS+K @ 125/hr - IV cipro/flagyl for sigmoid perforation with spilled succus - Continue Lantus at 20BID with MD-SSI - scheduled IV tylenol and toradol, prn dilaudid - home losartan + statin - lovenox ppx - IS/RT - PT consult - largely wheelchair bound at baseline (initial visit yesterday) - daily CBC/CMP Latricia Nguyễn DO, FACS General Surgeon [facility]
[2024-02-16] MEDS: INSULIN LISPRO 300 UNIT/3 ML PEN SUBQ SCH (17:24)
[2024-02-16] MEDS: MULTIVITAMIN W/MINERALS TABLET PO SCH (17:24)
[2024-02-17 05:52] LABS: HCT - HEMATOCRIT 30.5 % (37.0-47.0); HGB - HEMOGLOBIN 9.7 g/dL (12.0-16.0); MEAN CORPUSCULAR HEMOGLOBIN 28.4 pg (27.0-31.0); MEAN CORPUSCULAR HGB CONC 31.8 g/dL (32.0-36.0); MEAN CORPUSCULAR VOLUME 89.4 fL (81.0-99.0); MEAN PLATELET VOLUME 10.6 fL (7.9-10.8); RED BLOOD COUNT 3.41 10^6/uL (4.20-5.40); RED CELL DISTRIBUTION WIDTH 13.9 % (12.0-15.0); WHITE BLOOD COUNT 7.9 x10^3/uL (4.8-10.8)
[2024-02-17 06:04] LABS: CALCIUM 7.8 mg/dL (8.5-10.3); CREATININE 0.8 mg/dL (0.6-1.3); MAGNESIUM 1.8 mg/dL (1.7-2.3); PHOSPHORUS 2.6 mg/dL (2.5-5.0); POTASSIUM 4.5 mmol/L (3.5-4.5)
[2024-02-17] MEDS ORDERED: MAGNESIUM SULFATE 1 GM/2 ML VIAL IVP STA (07:09)
[2024-02-17] MEDS: MAGNESIUM SULFATE 2 GRAM 2 GM/50 ML BAG IV ONE (08:03)
[2024-02-17] MEDS ORDERED: iohexoL-300 100 ML VIAL ONE ×2 (09:34→09:49)
[2024-02-17] MEDS ORDERED: iohexoL-300 150 ML BOTTLE ONE (09:39)
[2024-02-17 09:44] LABS: INR 1.2 (0.8-1.2); PT - PROTHROMBIN TIME 13.1 secs (9.9-12.6)
--- NOTE | 2024-02-17 09:44 | PROVIDER PROGRESS NOTE ---
Subjective - General Admit Date: 02/11/24 Procedure Date: 02/12/24 Post Op Days: 5 Procedure Performed: diagnostic laparoscopy with primary repair of sigmoid colotomy - Review of Systems Wound/Incisions: positive: Healing well, Other (FRIEDA drain brown) - Other Other Information/Narrative: Tried some clear liquids yesterday, no increased abdominal pain but drain ret urned to brown output. Otherwise no significant changes - HDN, AF, ambulates to bathroom. Objective - Patient Data Reviewed Vital Signs: Yes Vital Signs: Vital Signs x48h Temp Pulse Resp BP Pulse Ox 02/17/24 07:25 36.6 C 83 20 112/66 98 02/17/24 05:00 36.6 C 69 17 129/66 98 Weight: Weight 02/15/24 02/16/24 02/17/24 23:59 23:59 23:59 Weight (kg) 99.5 kg Intake & Output: Intake and Output Totals x24h 02/15/24 02/16/24 02/17/24 23:59 23:59 23:59 Intake Total 3697.918 4421.249 1581.25 Output Total 391 1157 1610 Balance 3306.918 3264.249 -28.75 - Lab Results Lab Results: 02/17/24 04:53 02/17/24 04:53 Other Lab Results: Lab Results x24hrs 02/17/24 02/17/24 02/17/24 Range/Units 07:18 04:53 04:53 WBC 7.9 (4.8-10.8) x10^3/uL RBC 3.41 L (4.20-5.40) 10^6/uL Hgb 9.7 L (12.0-16.0) g/dL Hct 30.5 L (37.0-47.0) % MCV 89.4 (81.0-99.0) fL MCH 28.4 (27.0-31.0) pg MCHC 31.8 L (32.0-36.0) g/dL RDW 13.9 (12.0-15.0) % Plt Count 234 (130-450) 10^3/uL MPV 10.6 (7.9-10.8) fL Sodium 134 L (135-145) mmol/L Potassium 4.5 (3.5-4.5) mmol/L Chloride 111 (101-111) mmol/L Carbon Dioxide 18 L (21-32) mmol/L Anion Gap 5.0 L (6-13) BUN 10 (6-20) mg/dL Creatinine 0.8 (0.6-1.3) mg/dL Estimated GFR (MDRD) 72 L (>89) Glucose 125 H (74-104) mg/dL POC Whole Bld Glucose 109 H (70 - 100) mg/dL Calcium 7.8 L (8.5-10.3) mg/dL Phosphorus 2.6 (2.5-5.0) mg/dL Magnesium 1.8 (1.7-2.3) mg/dL 02/16/24 02/16/24 02/16/24 Range/Units 20:43 16:35 12:01 WBC (4.8-10.8) x10^3/uL RBC (4.20-5.40) 10^6/uL Hgb (12.0-16.0) g/dL Hct (37.0-47.0) % MCV (81.0-99.0) fL MCH (27.0-31.0) pg MCHC (32.0-36.0) g/dL RDW (12.0-15.0) % Plt Count (130-450) 10^3/uL MPV (7.9-10.8) fL Sodium (135-145) mmol/L Potassium (3.5-4.5) mmol/L Chloride (101-111) mmol/L Carbon Dioxide (21-32) mmol/L Anion Gap (6-13) BUN (6-20) mg/dL Creatinine (0.6-1.3) mg/dL Estimated GFR (MDRD) (>89) Glucose (74-104) mg/dL POC Whole Bld Glucose 160 H 195 H 178 H (70 - 100) mg/dL Calcium (8.5-10.3) mg/dL Phosphorus (2.5-5.0) mg/dL Magnesium (1.7-2.3) mg/dL - Current Medications Current Medications: Current Medications Generic Name Dose Route Start Last Admin Trade Name Freq PRN Reason Stop Dose Admin Atorvastatin Calcium 10 mg 02/14/24 21:00 02/16/24 20:40 Atorvastatin 10 Mg Tablet PO 10 mg QPM SHANNAN Administration Enoxaparin Sodium 40 mg 02/12/24 09:00 02/17/24 09:31 Enoxaparin 40 Mg/0.4 Ml Syringe SUBQ 40 mg DAILY SHANNAN Administration Hydromorphone HCl 0.5 mg 02/11/24 08:35 02/16/24 04:04 Hydromorphone 0.5 Mg/0.5 Ml Syringe IVP 0.5 mg Q2H PRN Administration Severe Pain (Level 7-10) Potassium Chloride/Dextrose/Sod Cl 1,000 mls @ 125 mls/hr 02/11/24 15:00 02/17/24 08:02 D5.45ns W/20 Meq Kcl IV 125 mls/hr .Q8H SHANNAN Infusion Acetaminophen 1,000 mg in 100 mls @ 400 mls/hr 02/11/24 18:00 02/17/24 07:25 Acetaminophen IV Infused Q6HR SHANNAN Infusion Metronidazole 500 mg in 100 mls @ 100 mls/hr 02/13/24 06:00 02/17/24 06:37 Flagyl 500 Mg/100 Ml IV Infused Q8H SHANNAN Infusion Ciprofloxacin 400 mg in 200 mls @ 200 mls/hr 02/13/24 09:00 02/17/24 09:31 Cipro 400 Mg/200 Ml IV 200 mls/hr Q12H SHANNAN Administration Insulin Glargine-yfgn 20 unit 02/15/24 09:00 02/17/24 09:32 Insulin Glargine-Yfgn 300 Unit/3 Ml Pen SUBQ 20 unit BID SHANNAN Administration Insulin Human Lispro 1 - 9 unit 02/16/24 15:10 02/17/24 08:02 Insulin Lispro 300 Unit/3 Ml Pen SUBQ Not Given ACHS SHANNAN Protocol Ketorolac Tromethamine 15 mg 02/13/24 08:00 02/17/24 08:02 Ketorolac 15 Mg/Ml Vial IVP 02/18/24 07:59 15 mg Q6H SHANNAN Administration Losartan Potassium 100 mg 02/13/24 09:00 02/17/24 09:31 Losartan 50 Mg Tablet PO 100 mg DAILY SHANNAN Administration Multivitamins/Minerals 1 tab 02/16/24 17:00 02/17/24 08:03 Multivitamin W/Minerals Tablet PO 1 tab DAILYWM SHANNAN Administration Ondansetron HCl 4 mg 02/11/24 08:35 02/16/24 04:01 Ondansetron 4 Mg/2 Ml Vial IVP 4 mg Q6HR PRN Administration Nausea / Vomiting Pantoprazole Sodium 40 mg 02/13/24 07:00 02/17/24 05:42 Pantoprazole 40 Mg Vial IVP 40 mg QDAC SHANNAN Administration Simethicone 80 mg 02/13/24 16:39 02/16/24 12:24 Simethicone Chew 80 Mg Tablet PO 80 mg Q6HR PRN Administration Gas Sodium Chloride 10 ml 02/11/24 17:00 02/17/24 05:37 Sodium Chloride Flush 0.9% 10 Ml Syringe IVP 10 ml 0100,0900,1700 SHANNAN Administration Sodium Chloride 10 ml 02/11/24 14:36 02/12/24 20:04 Sodium Chloride Flush 0.9% 10 Ml Syringe IVP 10 ml PRN PRN Administration NEEDED PER PROVIDER ORDERS - Physical Exam General Appearance: positive: No acute distress, Alert Respiratory: positive: No respiratory distress, Breath sounds nml Cardiovascular: positive: Regular rate & rhythm Abdomen: positive: No distention, Tenderness (minimal), Other (FRIEDA drain brown) Neurologic/Psychiatric: positive: Oriented x3 ABX Reporting Has patient been on IV antibiotics over the past 48 hours?: Yes Impression/Plan - Problem List Problem List: 68yoF PPD6 from diagnostic colonoscopy and POD5 s/p laparoscopic repair of iatrogenic sigmoid colotomy. Overall clinically stable - abdominal pain minimal (3/10 at max) with minimal abdominal ttp, HDN/AF, BG stable in 100s now, WBC normal, creatinine normal - no signs of sepsis. Yesterday tolerated clears without abdominal pain, however FRIEDA drainage brown again today. Will study the sigmoid repair with CT scan today (IV, Oral, Rectal contrast). Will start PPN. - Start PPN today with nutrition consult - D5 1/2NS+K @ 125/hr (may adjust with PPN) - IV cipro/flagyl for sigmoid perforation with spilled succus - Continue Lantus at 20BID with MD-SSI - scheduled IV tylenol and toradol, prn dilaudid - home losartan + statin - lovenox ppx - IS/RT - PT consult - largely wheelchair bound at baseline - daily CBC/CMP Latricia Tulk DO FACS General Surgeon [facility]
--- NOTE | 2024-02-17 13:05 | CT Report ---
PROCEDURE: Abdomen/Pelvis W INDICATIONS: sigmoid leak - IV/Oral/Rectal contrast CONTRAST: Omni 300 100ml TECHNIQUE: After the administration of intravenous contrast, a CT scan of the abdomen and pelvis was performed. Images were recorded and evaluated at appropriate window settings. Reformats: coronal and sagittal. F or radiation dose reduction, the following was used: automated exposure control, adjustment of mA and /or kV according to patient size. COMPARISON: CT of abdomen and pelvis dated 02/11/2024 and 10/03/2022. Abdominal radiograph dated 024 FINDINGS: Image quality: Diagnostic. Lower chest: Small infiltrate/atelectasis in posterior aspect of right lung base is seen. Mild depend ent atelectasis at left lung base is also seen. Heart size is normal, no pericardial effusion.. Liver: No solid mass. Gallbladder: Gallbladder is surgically absent. Biliary tree: Mild intrahepatic biliary ductal dilatation and dilatation of common bile duct is seen measures up to 1.9 cm in diameter series 2 image 52. This is not significantly changed from prior aureliano dy. No gross choledocholithiasis or common bile duct mass is seen. Spleen: No splenomegaly. Pancreas: No pancreatic ductal dilation. Adrenals: No adrenal nodule. Kidneys and ureters: No hydronephrosis. No renal cystic lesion which requires follow up. No solid mas s. Stomach, bowel and peritoneum: Postsurgical changes are noted in lower abdomen with a surgical drain noted in lower abdomen/pelvis. Significant peritoneal free air is seen in nondependent portion of the peritoneal space which may represent iatrogenic air secondary to interval surgery oral contrast is s een extending to rectum without contrast extravasation. Distended bowel loops throughout abdomen with multiple air-fluid and contrast fluid levels. Lymph nodes: No central or retroperitoneal adenopathy. Vessels: No infrarenal aortic aneurysm. Patent portal vein. PELVIS Reproductive organs: Unremarkable. Bladder: No abnormal wall thickening, accounting for underdistention. Pelvic lymph nodes: No pelvic adenopathy by size criteria. Bones: No aggressive osseous abnormality. Other: Postsurgical changes are noted in midline anterior abdominal wall with subcutaneous emphysema. Asymmetrically enlarged left rectus abdominis muscle concerning for intramuscular hematoma. IMPRESSION: 1. Postsurgical changes in lower abdomen with surgical drain in place as described above. Interval in crease in amount of peritoneal free air likely represent iatrogenic air related to recent surgery. No oral contrast extravasation. No peritoneal free fluid. 2. No evidence of bowel obstruction. Fluid and contrast distended the bowel loops throughout the abdo men with contrast extending to rectum and multiple air-fluid levels concerning for postop ileus. 3. Asymmetrically enlarged left rectus abdominis muscles suggestive of intramuscular hematoma. 4. Other findings are not significantly changed from previous study. Reviewed by: Fredi Jaquez MD on 02/17/2024 1:04 PM PDT Approved by: Fredi Jaquez MD on 02/17/2024 1:04 PM PDT Station ID: [id number]
[2024-02-17] MEDS: iohexoL-300 100 ML VIAL IVP ONE (13:11)
[2024-02-17] MEDS: LACTATED RINGERS 1,000 ML IV SCH (13:26)
[2024-02-17] MEDS: PPN (CLINIMIX E 4.25/5) 1,000 ML IV SCH (19:13)
[2024-02-17] MEDS: FAT EMULSION 20% 250 ML IV SCH (19:14)
[2024-02-18] MEDS: metroNIDAZOLE 500 MG/100 ML 500 MG/100 ML BAG IV SCH (03:37)
[2024-02-18 05:53] LABS: HCT - HEMATOCRIT 31.6 % (37.0-47.0); HGB - HEMOGLOBIN 9.7 g/dL (12.0-16.0); MEAN CORPUSCULAR HGB CONC 30.7 g/dL (32.0-36.0); MEAN CORPUSCULAR VOLUME 91.3 fL (81.0-99.0); MEAN PLATELET VOLUME 10.1 fL (7.9-10.8); RED BLOOD COUNT 3.46 10^6/uL (4.20-5.40); RED CELL DISTRIBUTION WIDTH 14.1 % (12.0-15.0); WHITE BLOOD COUNT 9.7 x10^3/uL (4.8-10.8)
[2024-02-18 06:12] LABS: ALBUMIN 2.6 g/dL (3.2-5.5); ALBUMIN/GLOBULIN RATIO 1.1 (1.0-2.2); BILIRUBIN,TOTAL 0.8 mg/dL (0.2-1.0); CALCIUM 7.6 mg/dL (8.5-10.3); CREATININE 0.8 mg/dL (0.6-1.3); MAGNESIUM 1.7 mg/dL (1.7-2.3); PHOSPHORUS 2.7 mg/dL (2.5-5.0); POTASSIUM 3.8 mmol/L (3.5-4.5)
[2024-02-18] MEDS ORDERED: MAGNESIUM SULFATE 1 GM/2 ML VIAL IVP STA (08:26)
[2024-02-18] MEDS: MAGNESIUM SULFATE 2 GRAM 2 GM/50 ML BAG IV ONE (09:30)
--- NOTE | 2024-02-18 18:29 | PROVIDER PROGRESS NOTE ---
Subjective - General Admit Date: 02/11/24 Procedure Date: 02/12/24 Post Op Days: 6 Procedure Performed: diagnostic laparoscopy with primary repair of sigmoid colotomy - Review of Systems Wound/Incisions: positive: Healing well, Other (FRIEDA drain yellow) - Other Other Information/Narrative: Tolerated small amount of regular diet yesterday - mashed potatoes. Abdominal pain stable 3/10 at max. No emesis, some burping. HDN, AF. Objective - Patient Data Reviewed Vital Signs: Yes Vital Signs: Vital Signs x48h Temp Pulse Resp BP Pulse Ox 02/18/24 15:47 36.6 C 92 20 162/80 H 100 02/18/24 11:16 36.6 C 101 H 18 158/76 H 99 Weight: Weight 02/16/24 02/17/24 02/18/24 23:59 23:59 23:59 Weight (kg) 99.5 kg 111 kg Intake & Output: Intake and Output Totals x24h 02/16/24 02/17/24 02/18/24 23:59 23:59 23:59 Intake Total 4421.249 3991.334 2589.717 Output Total 1157 2819 2300 Balance 3264.249 1172.334 289.717 - Lab Results Lab Results: 02/18/24 05:10 02/18/24 05:10 Other Lab Results: Lab Results x24hrs 02/18/24 02/18/24 02/18/24 Range/Units 16:46 15:15 11:07 WBC (4.8-10.8) x10^3/uL RBC (4.20-5.40) 10^6/uL Hgb (12.0-16.0) g/dL Hct (37.0-47.0) % MCV (81.0-99.0) fL MCH (27.0-31.0) pg MCHC (32.0-36.0) g/dL RDW (12.0-15.0) % Plt Count (130-450) 10^3/uL MPV (7.9-10.8) fL Sodium (135-145) mmol/L Potassium (3.5-4.5) mmol/L Chloride (101-111) mmol/L Carbon Dioxide (21-32) mmol/L Anion Gap (6-13) BUN (6-20) mg/dL Creatinine (0.6-1.3) mg/dL Estimated GFR (MDRD) (>89) Glucose (74-104) mg/dL POC Whole Bld Glucose 167 H 177 H (70 - 100) mg/dL Calcium (8.5-10.3) mg/dL Phosphorus (2.5-5.0) mg/dL Magnesium (1.7-2.3) mg/dL Total Bilirubin (0.2-1.0) mg/dL AST (10-42) IU/L ALT (10-60) IU/L Alkaline Phosphatase (42-121) IU/L Troponin I High Sens 3.7 (2.3-14.8) ng/L Total Protein (6.4-8.9) g/dL Albumin (3.2-5.5) g/dL Globulin (2.1-4.2) g/dL Albumin/Globulin Ratio (1.0-2.2) Prealbumin (17-34) mg/dL Triglycerides mg/dL 02/18/24 02/18/24 02/18/24 Range/Units 07:23 07:04 05:10 WBC (4.8-10.8) x10^3/uL RBC (4.20-5.40) 10^6/uL Hgb (12.0-16.0) g/dL Hct (37.0-47.0) % MCV (81.0-99.0) fL MCH (27.0-31.0) pg MCHC (32.0-36.0) g/dL RDW (12.0-15.0) % Plt Count (130-450) 10^3/uL MPV (7.9-10.8) fL Sodium 133 L (135-145) mmol/L Potassium 3.8 (3.5-4.5) mmol/L Chloride 108 (101-111) mmol/L Carbon Dioxide 22 (21-32) mmol/L Anion Gap 3.0 L (6-13) BUN 10 (6-20) mg/dL Creatinine 0.8 (0.6-1.3) mg/dL Estimated GFR (MDRD) 72 L (>89) Glucose 135 H (74-104) mg/dL POC Whole Bld Glucose 180 H 155 H (70 - 100) mg/dL Calcium 7.6 L (8.5-10.3) mg/dL Phosphorus 2.7 (2.5-5.0) mg/dL Magnesium 1.7 (1.7-2.3) mg/dL Total Bilirubin 0.8 (0.2-1.0) mg/dL AST 11 (10-42) IU/L ALT 19 (10-60) IU/L Alkaline Phosphatase 165 H (42-121) IU/L Troponin I High Sens (2.3-14.8) ng/L Total Protein 5.0 L (6.4-8.9) g/dL Albumin 2.6 L (3.2-5.5) g/dL Globulin 2.4 (2.1-4.2) g/dL Albumin/Globulin Ratio 1.1 (1.0-2.2) Prealbumin 11 L (17-34) mg/dL Triglycerides 69 mg/dL 02/18/24 02/17/24 Range/Units 05:10 20:34 WBC 9.7 (4.8-10.8) x10^3/uL RBC 3.46 L (4.20-5.40) 10^6/uL Hgb 9.7 L (12.0-16.0) g/dL Hct 31.6 L (37.0-47.0) % MCV 91.3 (81.0-99.0) fL MCH 28.0 (27.0-31.0) pg MCHC 30.7 L (32.0-36.0) g/dL RDW 14.1 (12.0-15.0) % Plt Count 261 (130-450) 10^3/uL MPV 10.1 (7.9-10.8) fL Sodium (135-145) mmol/L Potassium (3.5-4.5) mmol/L Chloride (101-111) mmol/L Carbon Dioxide (21-32) mmol/L Anion Gap (6-13) BUN (6-20) mg/dL Creatinine (0.6-1.3) mg/dL Estimated GFR (MDRD) (>89) Glucose (74-104) mg/dL POC Whole Bld Glucose 176 H (70 - 100) mg/dL Calcium (8.5-10.3) mg/dL Phosphorus (2.5-5.0) mg/dL Magnesium (1.7-2.3) mg/dL Total Bilirubin (0.2-1.0) mg/dL AST (10-42) IU/L ALT (10-60) IU/L Alkaline Phosphatase (42-121) IU/L Troponin I High Sens (2.3-14.8) ng/L Total Protein (6.4-8.9) g/dL Albumin (3.2-5.5) g/dL Globulin (2.1-4.2) g/dL Albumin/Globulin Ratio (1.0-2.2) Prealbumin (17-34) mg/dL Triglycerides mg/dL - Current Medications Current Medications: Current Medications Generic Name Dose Route Start Last Admin Trade Name Freq PRN Reason Stop Dose Admin Atorvastatin Calcium 10 mg 02/14/24 21:00 02/17/24 20:36 Atorvastatin 10 Mg Tablet PO 10 mg QPM SHANNAN Administration Enoxaparin Sodium 40 mg 02/12/24 09:00 02/18/24 08:36 Enoxaparin 40 Mg/0.4 Ml Syringe SUBQ 40 mg DAILY SHANNAN Administration Hydromorphone HCl 0.5 mg 02/11/24 08:35 02/18/24 08:00 Hydromorphone 0.5 Mg/0.5 Ml Syringe IVP 0.5 mg Q2H PRN Administration Severe Pain (Level 7-10) Acetaminophen 1,000 mg in 100 mls @ 400 mls/hr 02/11/24 18:00 02/18/24 18:01 Acetaminophen IV Infused Q6HR SHANNAN Infusion Ciprofloxacin 400 mg in 200 mls @ 200 mls/hr 02/13/24 09:00 02/18/24 09:45 Cipro 400 Mg/200 Ml IV Infused Q12H SHANNAN Infusion Amino Acids/Electrolytes/Dextrose 1,000 mls @ 83 mls/hr 02/17/24 19:00 02/18/24 06:54 Clinimix E 4.25%-5% Solution IV 83 mls/hr 0700,1900 SHANNAN Administration Protocol Fat Emulsion Intravenous 250 mls @ 21 mls/hr 02/17/24 19:00 02/18/24 15:26 Intralipid 20% IV Infused 1900 SHANNAN Infusion Lactated Ringer's 1,000 mls @ 40 mls/hr 02/17/24 13:00 02/18/24 15:26 Lr IV Not Given .Q25H SHANNAN Metronidazole 500 mg in 100 mls @ 100 mls/hr 02/18/24 02:00 02/18/24 11:20 Flagyl 500 Mg/100 Ml IV Infused Q8H SHANNAN Infusion Insulin Glargine-yfgn 20 unit 02/15/24 09:00 02/18/24 08:36 Insulin Glargine-Yfgn 300 Unit/3 Ml Pen SUBQ 20 unit BID SHANNAN Administration Insulin Human Lispro 1 - 9 unit 02/16/24 15:10 02/18/24 17:21 Insulin Lispro 300 Unit/3 Ml Pen SUBQ 1 unit ACHS SHANNAN Administration Protocol Losartan Potassium 100 mg 02/13/24 09:00 02/18/24 08:36 Losartan 50 Mg Tablet PO 100 mg DAILY SHANNAN Administration Multivitamins/Minerals 1 tab 02/16/24 17:00 02/18/24 08:00 Multivitamin W/Minerals Tablet PO 1 tab DAILYWM SHANNAN Administration Ondansetron HCl 4 mg 02/11/24 08:35 02/16/24 04:01 Ondansetron 4 Mg/2 Ml Vial IVP 4 mg Q6HR PRN Administration Nausea / Vomiting Pantoprazole Sodium 40 mg 02/13/24 07:00 02/18/24 06:13 Pantoprazole 40 Mg Vial IVP 40 mg QDAC SHANNAN Administration Simethicone 80 mg 02/13/24 16:39 02/16/24 12:24 Simethicone Chew 80 Mg Tablet PO 80 mg Q6HR PRN Administration Gas Sodium Chloride 10 ml 02/11/24 17:00 02/18/24 08:37 Sodium Chloride Flush 0.9% 10 Ml Syringe IVP 10 ml 0100,0900,1700 SHANNAN Administration Sodium Chloride 10 ml 02/11/24 14:36 02/12/24 20:04 Sodium Chloride Flush 0.9% 10 Ml Syringe IVP 10 ml PRN PRN Administration NEEDED PER PROVIDER ORDERS - Physical Exam Wound/Incisions: positive: Healing well General Appearance: positive: No acute distress, Alert Respiratory: positive: Chest non-tender, No respiratory distress, Breath sounds nml Cardiovascular: positive: Regular rate & rhythm Abdomen: positive: No distention, Tenderness (left side, minimal/stable) Neurologic/Psychiatric: positive: Oriented x3 ABX Reporting Has patient been on IV antibiotics over the past 48 hours?: Yes Impression/Plan - Problem List Problem List: 68yoF PPD7 from diagnostic colonoscopy and POD6 s/p laparoscopic repair of iatrogenic sigmoid colotomy. Overall clinically stable - abdominal pain minimal (3/10 at max) with minimal abdominal ttp, HDN/AF, BG stable in 100s now, WBC normal, creatinine normal - no signs of sepsis. CT with oral and rectal contrast shows NO enterocolonic leak. FRIEDA drain is yellow today. Will advance diet to regular and monitor drain. - Regular diet - DC PPN tomorrow if tolerating - IV cipro/flagyl for sigmoid perforation with spilled succus - Continue Lantus at 20BID with MD-SSI - scheduled IV tylenol and toradol, prn dilaudid - home losartan + statin - lovenox ppx - IS/RT - PT consult - largely wheelchair bound at baseline - daily CBC/CMP Latricia Nguyễn DO FACS General Surgeon Jason
[2024-02-19 11:27] VITALS: BP 151/71; O2SAT 98
--- NOTE | 2024-02-19 13:52 | Discharge Summary ---
Discharge Plan Problem Reviewed?: Yes Disposition: Home, Self Care Condition: Good Diet: Diabetic Activity Restrictions: Activity as Tolerated Shower Restrictions: No (Suspend drain from a long string around the neck using a safety pin) Driving Restrictions: Yes (DO not drive if taking narcotics ) Instruction Topics: Tube Surya Buitrago Drainage Care Health Concerns: 1. For the colon perforation, you will continue to take two oral antibiotics, and have the drain in place. Dr. Nguyễn will evaluate the drain at your follow up appointment and decide when to remove it, and when to stop the antibiotics. Follow up with Dr. Nguyễn on Thursday 03/01. The clinic will call you with the time. 2. You have a follow up appointment booked for your diabetes medications and insulin - ROSENDO Siu at [facility] on 02/24 @ 9:15 am. If GABRIELA Lima has a cancellation before that, they will call you to fit you in. 3. Home health will be visiting you to help coordinate Physical Therapy at home, check in on your drain, and check in on your blood sugar levels. No Smoking: If you smoke, Please STOP! Call for help. Follow-up with: Ruthie Lima PA-C [Primary Care Provider] - Latricia Nguyễn DO [Provider Admit Priv/Credential] -
--- NOTE | 2024-02-20 16:02 | DISCHARGE SUMMARY ---
"Discharge Summary Admit Date: 02/11/24 Discharge Date: 02/19/24 Discharging Provider: Latricia Nguyễn DO Code Status: Attempt Resuscitation Condition at Discharge: Good Discharge Disposition: 01 Home, Self Care - DIAGNOSES Admission Diagnoses: 1. colonic perforation 2. Diabetes 3. HTN 4. Hyperlipidemia Discharge Diagnoses with Status of Each Condition: 1. colonic perforation - improved 2. Diabetes - improved 3. HTN - stable, at baseline 4. Hyperlipidemia - stable, at baseline - HPI History of Present Illness: 68yoF underwent diagnostic colonoscopy in same day surgery this morning, for irregular bowel patterns and diarrhea; procedure involved random mendenhall-colonic biopsies with cold forceps. In the PACU she had severe abdominal pain and lower abdominal ttp and emesis, which did improve after passing gas and receiving 0.5mg of dilaudid. An upright AXR was obtained showing free air, and thus a CT abd/pel with IV and oral contrast was obtained in follow up, showing pneumoperitoneum (though a relatively small amount) and no obvious location of colonic perforation. After a few hours in the PACU, her pain remained minimal and she was HD normal, emesis and nausea had resolved. - CONSULTS | PROCEDURES Procedures: 02/11/24 Colonoscopy 02/11/24 CT abdomen/pelvis 02/12/24 Diagnostic laparoscopy, laparoscopic repair of sigmoid perforation 02/17/24 CT abdomen/pelvis with oral and rectal contrast 02/19/24 Discharge home - HOSPITAL COURSE Hospital Course: The patient was admitted to same day surgery for an elective diagnostic colonoscopy for irregular bowel habits. After experiencing severe pain in the PACU, a CT abdomen/pelvis confirmed a perforation. It was initially felt to be a microperforation, and thus the patient was admitted for bowel rest and IV antibiotics. Within the first 24 hours her abdominal pain worsened, and so she was taken to the operating room for a diagnostic laparoscopy where a 1cm sigmoid colon perforation was found, and repaired laparoscopically; a FRIEDA drain was left in the pelvis. A yang was placed at surgery and removed on POD2 after the urine sediment had cleared; a urine cx was negative. The patient was kept NPO on continued IV antibiotics (cipro/flagyl) for 48hours. Between POD2 and POD2 and POD5, the drain was intermittently feculant vs serosanguinous, thus on POD a CT scan with IV/oral and rectal contrast was obtained to evaluate for leak of the repair or other site. The CT demonstrated no leak. The patients diet was slowly advanced and the feculant appearance of the drain resolved - the drain was cloudy yellow/serous. At the start of the hospitalization the patients blood glucose was high 300s, her Lantus was uptitrated to 20U BID plus a moderate dose sliding scale, and her oral diabetes medications were held; her glucose was then controlled to the 100s. By POD 7, the patient was tolerating a regular diet with her pain and nausea controlled. She had remained HD normal, afebrile, and without a leukocytosis throughout the entire hospitalization. Decision was made to discharge to home on a regular diet, with the FRIEDA drain in place, and continue on oral antibiotics (cipro/flagyl). A social work and home health referral for home PT was placed. Follow up with her PCM for diabetes management was scheduled. Follow up for drain check with Dr. Nguyễn in the general surgery clinic was scheduled. - ALLERGIES Allergies/Adverse Reactions: Allergies Allergy/AdvReac Type Severity Reaction Status Date / Time amoxicillin Allergy Hives Verified 02/19/24 21:13 latex Allergy Hives Verified 02/19/24 21:13 liraglutide [From Victoza] Allergy Unknown Verified 02/19/24 21:13 sulfamethoxazole Allergy Hives Verified 02/19/24 21:13 [From Septra] trimethoprim [From Septra] Allergy Hives Verified 02/19/24 21:13 lisinopril AdvReac Unknown Verified 02/19/24 21:13 - MEDICATIONS Home Medications: Ambulatory Orders Medication Instructions Recorded Confirmed Atorvastatin Calcium 10 mg PO QPM 02/11/19 02/20/24 Glimepiride [Amaryl] 4 mg PO DAILY 10/23/22 02/20/24 Albuterol Sulf [Ventolin Hfa 1 - 2 puffs INH Q4HR PRN 02/09/24 02/20/24 Inhaler] Glimepiride [Amaryl] 2 mg PO QPM 02/09/24 02/20/24 Insulin Glargine [Lantus Solostar] 8 unit SUBQ DAILY 02/09/24 02/20/24 Losartan Potassium [Cozaar] 100 mg PO DAILY 02/11/24 02/20/24 metFORMIN [Glucophage] 1,000 mg PO BID 02/11/24 02/20/24 Acetaminophen [Tylenol] 1,000 mg PO Q8HR PRN 30 Days #60 02/19/24 02/20/24 tablet Ciprofloxacin HCl [Cipro] 500 mg PO BID #28 tablet 02/19/24 02/20/24 ONDANSETRON ODT Prepack 2 [ZOFRAN 4 mg TL Q6H PRN 30 Days #20 tablet 02/19/24 02/20/24 ODT] Pantoprazole [Protonix] 40 mg PO DAILY #30 tablet 02/19/24 02/20/24 metroNIDAZOLE [Flagyl] 500 mg PO Q6HR #56 tablet 02/19/24 02/20/24 oxyCODONE [Roxicodone] 5 mg PO Q4H PRN #30 tablet 02/19/24 02/20/24 - PHYSICAL EXAM AT DISCHARGE General Appearance: positive: No acute distress, Alert Eyes Bilateral: positive: Normal inspection ENT: positive: ENT inspection nml Neck: positive: Nml inspection Respiratory: positive: No respiratory distress, Breath sounds nml Cardiovascular: positive: Regular rate & rhythm Peripheral Pulses: positive: 2+ Abdomen: positive: Tenderness (mild, left lower quadrant) Skin: positive: Color nml Neurologic/Psychiatric: positive: Oriented x3 - LABS Result Diagrams: 02/18/24 05:10 02/18/24 05:10 - DIAGNOSTIC IMAGING Diagnostic Imaging Results: Final report reviewed - FOLLOW UP Follow Up: Home Health referral [facility] 02/25/24 Dr. Nguyễn/General Surgery 03/01/24 - TIME SPENT Time Spent in Discharge (Minutes): 60"
--- NOTE | 2024-02-20 16:16 | HISTORY & PHYSICAL EXAMINATION ---
Chief Complaint - Chief Complaint Chief Complaint: left abdominal wall pain History of Present Illness - Admitted From Admitted From:: ED - History of Present Illness HPI Comment/Other: The patient was discharged home earlier today, and represents to the ED with concern for swelling and discomfort of the left abdominal wall/panus. Endorses continued PO tolerance without return to emesis at home. From discharge summary earlier today: The patient was admitted to same day surgery for an elective diagnostic co lonoscopy for irregular bowel habits. After experiencing severe pain in the PACU, a CT abdomen/pelvis confirmed a perforation. It was initially felt to be a microperforation, and thus the patient was admitted for bowel rest and IV antibiotics. Within the first 24 hours her abdominal pain worsened, and so she was taken to the operating room for a diagnostic laparoscopy where a 1cm sigmoid colon perforation was found, and repaired laparoscopically; a FRIEDA drain was left in the pelvis. A yang was placed at surgery and removed on POD2 after the urine sediment had cleared; a urine cx was negative. The patient was kept NPO on continued IV antibiotics (cipro/flagyl) for 48hours. Between POD2 and POD2 and POD5, the drain was intermittently feculant vs serosanguinous, thus on POD a CT scan with IV/oral and rectal contrast was obtained to evaluate for leak of the repair or other site. The CT demonstrated no leak. The patients diet was slowly advanced and the feculant appearance of the drain resolved - the drain was cloudy yellow/serous. At the start of the hospitalization the patients blood glu cose was high 300s, her Lantus was uptitrated to 20U BID plus a moderate dose sliding scale, and her oral diabetes medications were held; her glucose was then controlled to the 100s. By POD 7, the patient was tolerating a regular diet with her pain and nausea controlled. She had remained HD normal, afebrile, and without a leukocytosis throughout the entire hospitalization. Decision was made to discharge to home on a regular diet, with the FRIEDA drain in place, and continue on oral antibiotics (cipro/flagyl). A social work and home health referral for home PT was placed. Follow up with her PCM for diabetes management was scheduled. Follow up for drain check with Dr. Nguyễn in the general surgery clinic was scheduled. History - Past Medical History Cardiovascular: reports: Hypertension, High cholesterol Respiratory: reports: Sleep apnea, Other Neuro: reports: None Endocrine/Autoimmune: reports: Type 2 diabetes GI: reports: GERD, Diverticulitis : reports: Kidney stones HEENT: reports: Chronic vision loss Psych: reports: Depression Musculoskeletal: reports: Osteoarthritis, Fibromyalgia, Osteopenia, Chronic back pain Derm: reports: Rosacea MRSA Hx?: No - Past Surgical History General: reports: Cholecystectomy, Colonoscopy Ortho: reports: Arthroscopic surgery, Other /COUNTER CHECKER: reports: Tubal ligation, 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, Oophrectomy - POLST Patient has POLST: No Meds/Allgy - Home Medications Home Medications: Ambulatory Orders Medication Instructions Recorded Confirmed Atorvastatin Calcium 10 mg PO QPM 02/11/19 02/20/24 Glimepiride [Amaryl] 4 mg PO DAILY 10/23/22 02/20/24 Albuterol Sulf [Ventolin Hfa 1 - 2 puffs INH Q4HR PRN 02/09/24 02/20/24 Inhaler] Glimepiride [Amaryl] 2 mg PO QPM 02/09/24 02/20/24 Insulin Glargine [Lantus Solostar] 8 unit SUBQ DAILY 02/09/24 02/20/24 Losartan Potassium [Cozaar] 100 mg PO DAILY 02/11/24 02/20/24 metFORMIN [Glucophage] 1,000 mg PO BID 02/11/24 02/20/24 Acetaminophen [Tylenol] 1,000 mg PO Q8HR PRN 30 Days #60 02/19/24 02/20/24 tablet Ciprofloxacin HCl [Cipro] 500 mg PO BID #28 tablet 02/19/24 02/20/24 ONDANSETRON ODT Prepack 2 [ZOFRAN 4 mg TL Q6H PRN 30 Days #20 tablet 02/19/24 02/20/24 ODT] Pantoprazole [Protonix] 40 mg PO DAILY #30 tablet 02/19/24 02/20/24 metroNIDAZOLE [Flagyl] 500 mg PO Q6HR #56 tablet 02/19/24 02/20/24 oxyCODONE [Roxicodone] 5 mg PO Q4H PRN #30 tablet 02/19/24 02/20/24 - Allergies Allergies/Adverse Reactions: Allergies Allergy/AdvReac Type Severity Reaction Status Date / Time amoxicillin Allergy Hives Verified 02/19/24 21:13 latex Allergy Hives Verified 02/19/24 21:13 liraglutide [From Victoza] Allergy Unknown Verified 02/19/24 21:13 sulfamethoxazole Allergy Hives Verified 02/19/24 21:13 [From Septra] trimethoprim [From Septra] Allergy Hives Verified 02/19/24 21:13 lisinopril AdvReac Unknown Verified 02/19/24 21:13 Review of Systems - Constitutional Constitutional: reports: Weakness - Gastrointestinal Gastrointestinal: reports: Abdominal pain. denies: Nausea, Vomiting Exam - Vital Signs Reviewed Vital Signs: Yes - Physical Exam General Appearance: positive: No acute distress, Alert Eyes Bilateral: positive: Normal inspection, PERRL ENT: positive: ENT inspection nml, Pharynx nml, No signs of dehydration Neck: positive: Nml inspection, Thyroid nml, No JVD, Trachea midline Respiratory: positive: Chest non-tender, No respiratory distress, Breath sounds nml Cardiovascular: positive: Regular rate & rhythm, No murmur, No gallop Peripheral Pulses: positive: 2+ Abdomen: positive: Tenderness (left lower quadrant. Some ecchymosis at the dependent area of the left panus) Skin: positive: Color nml Extremities: positive: Non-tender Neurologic/Psychiatric: positive: Oriented x3 Conclusion/Plan - Problem List (1) Large bowel perforation, intraoperative Conclusion/Plan: 68yoF who is POD7 from laparoscopic repair of sigmoid perforation during colonoscopy, and readmitted from the ED 6hours after discharge to home earlier today. There is no appreciable difference in her clinical status from discharge earlier today. The CT scan in the ED is overall stable with known pneumoperitoneum and small amount of fluid in the pelvis - controlled with the existing FRIEDA drain. There is some ecchymosis of the left flank/panus, however the rectus sheath hematoma is stable in size without extravazation on CT scan, and the subcutaneous tissues show diffuse anasarca without an accumulated hematoma. There is no change in the patient's ability to tolerate PO intake, her pain level, or the drain character. - Admit overnight for observation. - Lab Results Fish Bones: 02/18/24 05:10 02/18/24 05:10 - Diagnostic Imaging Results Diagnostic Imaging Results: positive: Final report reviewed Diagnostic Imaging Results Comments: CT with IV contrast obtained. Rectus sheath hematoma stable. Small amount of pelvis fluid and drain present. Pneumoperitoneum s/p repair of sigmoid perforation. Decreased small bowel dilation. Diffuse anasarca.
--- NOTE | 2024-02-20 16:22 | DISCHARGE SUMMARY ---
Discharge Summary Admit Date: 02/19/24 Discharge Date: 02/20/24 Discharging Provider: Latricia Nguyễn DO Code Status: Attempt Resuscitation Condition at Discharge: Good Discharge Disposition: 01 Home, Self Care - DIAGNOSES Admission Diagnoses: large bowel perforation Discharge Diagnoses with Status of Each Condition: large bowel perforation - stable - HPI History of Present Illness: The patient was discharged home earlier today, and represents to the ED with concern for swelling and discomfort of the left abdominal wall/panus. Endorses continued PO tolerance without return to emesis at home. From discharge summary earlier today: The patient was admitted to same day surgery for an elective diagnostic colo noscopy for irregular bowel habits. After experiencing severe pain in the PACU, a CT abdomen/pelvis confirmed a perforation. It was initially felt to be a microperforation, and thus the patient was admitted for bowel rest and IV antibiotics. Within the first 24 hours her abdominal pain worsened, and so she was taken to the operating room for a diagnostic laparoscopy where a 1cm sigmoid colon perforation was found, and repaired laparoscopically; a FRIEDA drain was left in the pelvis. A yang was placed at surgery and removed on POD2 after the urine sediment had cleared; a urine cx was negative. The patient was kept NPO on continued IV antibiotics (cipro/flagyl) for 48hours. Between POD2 and POD2 and POD5, the drain was intermittently feculant vs serosanguinous, thus on POD a CT scan with IV/oral and rectal contrast was obtained to evaluate for leak of the repair or other site. The CT demonstrated no leak. The patients diet was slowly advanced and the feculant appearance of the drain resolved - the drain was cloudy yellow/serous. At the start of the hospitalization the patients blood glucose was high 300s, her Lantus was uptitrated to 20U BID plus a moderate dose sliding scale, and her oral diabetes medications were held; her glucose was then controlled to the 100s. By POD 7, the patient was tolerating a regular diet with her pain and nausea controlled. She had remained HD normal, afebrile, and without a leukocytosis throughout the entire hospitalization. Decision was made to discharge to home on a regular diet, with the FRIEDA drain in place, and continue on oral antibiotics (cipro/flagyl). A social work and home health referral for home PT was placed. Follow up with her PCM for diabetes management was scheduled. Follow up for drain check with Dr. Nguyễn in the general surgery clinic was scheduled. In the ED CT with IV contrast obtained. Rectus sheath hematoma stable. Small am ount of pelvis fluid and drain present. Pneumoperitoneum s/p repair of sigmoid perforation. Decreased small bowel dilation. Diffuse anasarca. 68yoF who is POD7 from laparoscopic repair of sigmoid perforation during colonoscopy, and readmitted from the ED 6hours after discharge to home earlier today. There is no appreciable difference in her clinical status from discharge earlier today. The CT scan in the ED is overall stable with known pneumoperitoneum and small amount of fluid in the pelvis - controlled with the existing FRIEDA drain. There is some ecchymosis of the left flank/panus, however the rectus sheath hematoma is stable in size without extravazation on CT scan, and the subcutaneous tissues show diffuse anasarca without an accumulated hematoma. There is no change in the patient's ability to tolerate PO intake, her pain level, or the drain character. - HOSPITAL COURSE Hospital Course: 68yoF readmitted 6 hours after discharge, POD7 from laparoscopic repair of sigmoid perforation during colonoscopy. There is no appreciable difference in her clinical status from discharge earlier today. The CT scan in the ED is overall stable with known pneumoperitoneum and small amount of fluid in the pelvis - controlled with the existing FRIEDA drain. There is some ecchymosis of the left flank/panus corresponding to the area of patients pain, however the rectus sheath hematoma is stable in size without extravazation on CT scan, and the subcutaneous tissues show diffuse anasarca without an accumulated hematoma. There is no change in the patient's ability to tolerate PO intake, her pain level, or the drain character. She was continued on IV cipro/flagyl as an inpatient. I had a kayden discussion with the patient and her daughter that I do not see a clear indication for continued inpatient admission at this time. Her goals of care at this time are outpatient control of blood glucose (PCM follow up is scheduled for this), and allowing time for the FRIEDA drain to clear, which can be managed at home as she is tolerating a regular diet with pain controlled on oral medication, and she has follow up with me in 10 days. Her daughter feels that the patient's poor mobility is too difficult to manage at home (she is whee lchair bound, typically uses a stair chair lift but this is currently broken and was using a cane + human assist prior to admission). I offered to reengage social work and physical therapy and arrange for fpc facility as a stepdown transition from the hospital. The daughter adamantly refused this option. The daughter stated "my dad doesn't want her in this hospital anymore, we would like her transferred to another hospital." I explained that while I always support a patient's preference for a second opinion, I do not have a current reason to keep her admitted, and thus likewise I would be unable to transfer her to another inpatient facility without a diagnosis requiring admission. I did acknowledge that she is welcome to take her mom to another emergency room for evaluation for admission after discharge from [facility] as a means to a second opinion. I also emphasized that she has follow up outpatient care scheduled with me which I intend to still offer if they choose t o attend the appointment. At the end of the conversation the daughter stepped out of the room, and I asked the patient if she would prefer a referral to fpc facility vs discharge to home, and she elected for discharge to home. All of the discharge medications, referrals, and follow up appointments from yesterdays discharge are still valid; no new medications or referrals are needed. - ALLERGIES Allergies/Adverse Reactions: Allergies Allergy/AdvReac Type Severity Reaction Status Date / Time amoxicillin Allergy Hives Verified 02/19/24 21:13 latex Allergy Hives Verified 02/19/24 21:13 liraglutide [From Victoza] Allergy Unknown Verified 02/19/24 21:13 sulfamethoxazole Allergy Hives Verified 02/19/24 21:13 [From Septra] trimethoprim [From Septra] Allergy Hives Verified 02/19/24 21:13 lisinopril AdvReac Unknown Verified 02/19/24 21:13 - MEDICATIONS Home Medications: Ambulatory Orders Medication Instructions Recorded Confirmed Atorvastatin Calcium 10 mg PO QPM 02/11/19 02/20/24 Glimepiride [Amaryl] 4 mg PO DAILY 10/23/22 02/20/24 Albuterol Sulf [Ventolin Hfa 1 - 2 puffs INH Q4HR PRN 02/09/24 02/20/24 Inhaler] Glimepiride [Amaryl] 2 mg PO QPM 02/09/24 02/20/24 Insulin Glargine [Lantus Solostar] 8 unit SUBQ DAILY 02/09/24 02/20/24 Losartan Potassium [Cozaar] 100 mg PO DAILY 02/11/24 02/20/24 metFORMIN [Glucophage] 1,000 mg PO BID 02/11/24 02/20/24 Acetaminophen [Tylenol] 1,000 mg PO Q8HR PRN 30 Days #60 02/19/24 02/20/24 tablet Ciprofloxacin HCl [Cipro] 500 mg PO BID #28 tablet 02/19/24 02/20/24 ONDANSETRON ODT Prepack 2 [ZOFRAN 4 mg TL Q6H PRN 30 Days #20 tablet 02/19/24 02/20/24 ODT] Pantoprazole [Protonix] 40 mg PO DAILY #30 tablet 02/19/24 02/20/24 metroNIDAZOLE [Flagyl] 500 mg PO Q6HR #56 tablet 02/19/24 02/20/24 oxyCODONE [Roxicodone] 5 mg PO Q4H PRN #30 tablet 02/19/24 02/20/24 - PHYSICAL EXAM AT DISCHARGE General Appearance: positive: No acute distress, Alert Eyes Bilateral: positive: Normal inspection ENT: positive: ENT inspection nml Neck: positive: Nml inspection Respiratory: positive: No respiratory distress, Breath sounds nml Cardiovascular: positive: Regular rate & rhythm Peripheral Pulses: positive: 2+ Abdomen: positive: No distention, Tenderness (left flank/panus, with some ecchymosis). negative: Guarding, Rebound Skin: positive: Color nml Neurologic/Psychiatric: positive: Oriented x3 - LABS Result Diagrams: 02/18/24 05:10 02/18/24 05:10 - FOLLOW UP Follow Up: PCM 02/24 Dr. Nguyễn 03/01 Home health/home PT - TIME SPENT Time Spent in Discharge (Minutes): 60
== END 2024-02-19 14:30 | disposition home or self-care (01) ==
LOC: SDS 06:19 → MS2 14:36
PROVIDERS: ADMIT Surgery; ATTEND Surgery

== ENCOUNTER 2024-02-25 10:46 | Outpatient (CLI) | payer MEDICARE, OTHER ==
[2024-02-25 18:20] LABS: BASOPHILS % (AUTO) 0.7 %; EOSINOPHILS % (AUTO) 9.7 %; HCT - HEMATOCRIT 30.8 % (37.0-47.0); HGB - HEMOGLOBIN 9.7 g/dL (12.0-16.0); LYMPHOCYTES % (AUTO) 14.4 %; MEAN CORPUSCULAR HEMOGLOBIN 28.5 pg (27.0-31.0); MEAN CORPUSCULAR HGB CONC 31.5 g/dL (32.0-36.0); MEAN CORPUSCULAR VOLUME 90.6 fL (81.0-99.0); MEAN PLATELET VOLUME 10.4 fL (7.9-10.8); MONOCYTES % (AUTO) 5.6 %; NEUTROPHILS % (AUTO) 69.1 %; PLT - PLATELET COUNT 455 10^3/uL (130-450); RED CELL DISTRIBUTION WIDTH 15.2 % (12.0-15.0)
[2024-02-25 18:25] LABS: ABNORMAL LYMPHS % (MANUAL) 0 %; BAND NEUTROPHILS % (MANUAL) 0 %
[2024-02-25 18:45] LABS: ALBUMIN/GLOBULIN RATIO 0.9 (1.0-2.2); CALCIUM 8.7 mg/dL (8.5-10.3); CREATININE 0.7 mg/dL (0.6-1.3); POTASSIUM 4.2 mmol/L (3.5-4.5); TOTAL PROTEIN 6.5 g/dL (6.4-8.9)
[2024-02-25 19:07] LABS: LYMPHOCYTES # (MANUAL) 2.1 10^3/uL (1.5-3.5); LYMPHOCYTES % (MANUAL) 16 %; MONOCYTES # (MANUAL) 0.9 10^3/uL (0.0-1.0)
[2024-02-25 19:09] LABS: DIFFERENTIAL COMMENT MANUAL DIFFERENTIAL; PLATELET ESTIMATE, MANUAL INCREASED (>450,000) (NORMAL); PLATELET MORPHOLOGY NORMAL APPEARANCE (NORMAL)
== END 2024-02-25 10:47 | disposition home or self-care (01) ==
LOC: LAB.N 10:46
PROVIDERS: ATTEND Nurse Practitioner
DX: K63.1 Perforation of intestine (nontraumatic) (principal)
CPT/HCPCS: 36415; 80053; 85025; 87040

== ENCOUNTER 2024-03-19 06:39 | Inpatient (IN) ==
[2024-03-19] MEDS: LACTATED RINGERS 1,000 ML IV ONE (08:52)
[2024-03-19] MEDS ORDERED: CLINDAMYCIN 900 MG/50 ML 900 MG/50 ML BAG IV ONE (09:19)
[2024-03-19] MEDS: CLINDAMYCIN 900 MG/50 ML 50 ML IV ONE (09:21)
[2024-03-19] MEDS ORDERED: PROPOFOL 200 MG/20 ML VIAL IVP ONE (09:27)
[2024-03-19] MEDS ORDERED: ROCURONIUM 50 MG/5 ML VIAL ONE (09:27)
[2024-03-19] MEDS ORDERED: fentaNYL 100 MCG/2 ML VIAL ONE ×2 (09:28→13:48)
[2024-03-19] MEDS ORDERED: MIDAZOLAM 2 MG/2 ML VIAL ONE (09:28)
--- NOTE | 2024-03-19 09:31 | ANESTHESIA PROCEDURE NOTE ---
Pre-Anesthesia VS, & Labs Diagnosis Surgical Diagnosis:: bowel perforation Procedure Procedure: diagnostic laparoscopy, loop colostomy, possible open laparotomy Vitals Vital Signs: Temp Pulse Resp BP Pulse Ox 36.8 C 84 17 138/79 H 97 03/19/24 08:36 03/19/24 08:36 03/19/24 08:36 03/19/24 08:36 03/19/24 08:36 NPO NPO: >8 hours Is Patient ?: No Lab Results Current Lab Results: Laboratory Tests 03/19/24 08:43: POC Whole Bld Glucose 213 Meds/Allgy Home Medications Ambulatory Orders Medication Instructions Recorded Confirmed atorvastatin 10 mg tablet 10 mg PO QPM 02/11/19 03/18/24 glimepiride 2 mg tablet 4 mg PO DAILY 10/23/22 03/18/24 albuterol sulfate 90 mcg/actuation 1 - 2 puff inhalation Q4HR PRN 02/09/24 03/18/24 aerosol inhaler (Ventolin HFA) Shortness Of Air/Wheezing glimepiride 2 mg tablet 2 mg PO QPM 02/09/24 03/18/24 insulin glargine 100 unit/mL (3 12 unit subcut DAILY 02/09/24 03/18/24 mL) subcutaneous pen (Lantus Solostar U-100 Insulin) Losartan Potassium [Cozaar] 100 mg PO DAILY 02/11/24 03/18/24 metformin 500 mg tablet 1,000 mg PO BID 02/11/24 03/18/24 oxycodone 5 mg tablet 5 mg PO Q4H PRN Pain #30 tabs 02/19/24 03/18/24 pantoprazole 40 mg tablet,delayed mg PO 03/18/24 03/18/24 release Allergies Allergies Allergy/AdvReac Type Severity Reaction Status Date / Time amoxicillin Allergy Hives Verified 03/19/24 08:54 latex Allergy Hives Verified 03/19/24 08:54 liraglutide (From Victoza) Allergy Unknown Verified 03/19/24 08:54 sulfamethoxazole (From Allergy Hives Verified 03/19/24 08:54 Septra) trimethoprim (From Septra) Allergy Hives Verified 03/19/24 08:54 lisinopril AdvReac Hives Verified 03/19/24 08:54 PFSH Medical History Medical History History of TIA (transient ischemic attack) Diabetes type 2, uncontrolled (11/10/12) Morbid obesity (12/10/12) Hypertension, essential, benign (06/05/11) GERD (gastroesophageal reflux disease) (12/09/06) Obstructive sleep apnea (12/08/13) Hyperlipidemia (12/15/06) Ovarian cancer (05/27/13) Osteoporosis (06/05/17) Acquired dilation of common bile duct (01/11/16) Nonalcoholic fatty liver disease (08/10/15) Osteoarthritis of knees, bilateral (05/20/13) Foot deformity (07/09/23) Fibromyalgia (02/11/13) Dry eye syndrome (07/09/17) Depression (10/19/14) Anemia (08/02/14) CARLOS A positive (03/01/13) Adrenal adenoma (01/11/16) Surgical History Surgical History H/O arthroscopic knee surgery History of elbow surgery Hx of colonoscopy H/O bilateral oophorectomy History of laparoscopy (~02/12/24) laparoscopic repair of sigmoid colon perforation Hx of cholecystectomy (12/15/06) Hx of hysterectomy (12/15/06) Hx of arthroscopy (12/15/06) Social History Social History (Updated 03/19/24 @ 08:59 by Nena Finn RN, LUCRETIA) Smoking Status: Never smoker Do you dip or chew tobacco?: No Living arrangement: At home Living Condition: With spouse/s.o. Relationship: Child Level: Assisted Home Mobility Equipment: Walker and Wheelchair Do you feel safe in your home environment?: Yes Suffered physical, verbal, emotional, or financial abuse?: No History of Abuse: No Frequency: Occasional Number of Amount/day: 1 Substance Use: denies use and other Substance Use Details: cbd/thc gummies 10mg 2 days ago, dragon bomb cbd for knees. 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 Anesthesia Exam (Expanded) Exam General: Alert and Oriented x3 Dental: WNL and Poor dentition (none loose per patient) Mouth Opening: Greater than 4 Fingerbreadths Neck Mobility: Normal Mallampati classification: I Thyromental Distance: greater than 6 cm Respiratory: Lungs clear Cardiovascular: Regular rate, Normal S1 and Normal S2 Exam Exam Vital Signs Temperature 36.8 C 03/19/24 08:36 Pulse Rate 84 03/19/24 08:36 Respiratory Rate 17 03/19/24 08:36 Blood Pressure 138/79 H 03/19/24 08:36 O2 Saturation 97 03/19/24 08:36 Plan Plan Anesthesia Type: General and Transverse Abdominis Plane (TAP) Block Consent for Procedure(s) Verified and Reviewed: Yes Code Status: Attempt Resuscitation ASA Classification ASA classification: 3-Severe systemic disease Is this case an emergency?: No
[2024-03-19] MEDS ORDERED: NALOXONE 0.4 MG/ML VIAL IVP PRN (09:32)
[2024-03-19] MEDS ORDERED: ePHEDrine 50 MG/ML VIAL IVP PRN (09:32)
[2024-03-19] MEDS ORDERED: MORPHINE 2 MG/ML CARPUJECT IVP PRN (09:32)
[2024-03-19] MEDS ORDERED: ATROPINE ABBOJECT 1 MG/10 ML SYRINGE IVP PRN (09:32)
[2024-03-19 09:42] LABS: BASOPHILS % (AUTO) 0.6 %; EOSINOPHILS # (AUTO) 0.2 10^3/uL (0.0-0.7); EOSINOPHILS % (AUTO) 3.5 %; HCT - HEMATOCRIT 34.9 % (37.0-47.0); LYMPHOCYTES # (AUTO) 1.4 10^3/uL (1.5-3.5); LYMPHOCYTES % (AUTO) 20.6 %; MEAN CORPUSCULAR HGB CONC 31.5 g/dL (32.0-36.0); MEAN CORPUSCULAR VOLUME 88.8 fL (81.0-99.0); MONOCYTES # (AUTO) 0.8 10^3/uL (0.0-1.0); MONOCYTES % (AUTO) 11.5 %; NEUTROPHILS # (AUTO) 4.4 10^3/uL (1.5-6.6); NEUTROPHILS % (AUTO) 63.7 %; PLT - PLATELET COUNT 265 10^3/uL (130-450); RED BLOOD COUNT 3.93 10^6/uL (4.20-5.40); RED CELL DISTRIBUTION WIDTH 15.1 % (12.0-15.0); WHITE BLOOD COUNT 6.9 x10^3/uL (4.8-10.8)
[2024-03-19 09:50] LABS: INR 1.3 (0.8-1.2); PT - PROTHROMBIN TIME 13.8 secs (9.9-12.6)
[2024-03-19 09:59] LABS: ALBUMIN 3.5 g/dL (3.2-5.5); ALBUMIN/GLOBULIN RATIO 0.9 (1.0-2.2); BILIRUBIN,TOTAL 2.2 mg/dL (0.2-1.0); CALCIUM 9.5 mg/dL (8.5-10.3); CREATININE 0.8 mg/dL (0.6-1.3); CRP - C-REACTIVE PROTEIN 2.3 mg/dL (<0.5); POTASSIUM 4.2 mmol/L (3.5-4.5); TOTAL PROTEIN 7.4 g/dL (6.4-8.9)
[2024-03-19 10:02] LABS: ESTIMATED AVERAGE GLUCOSE 157 mg/dL (70-100); HEMOGLOBIN A1c% 7.1 % (4.27-6.07)
[2024-03-19] MEDS ORDERED: ePHEDrine 50 MG/ML VIAL IVP ONE (10:47)
[2024-03-19] MEDS ORDERED: PHENYLEPHRINE 10 MG/ML VIAL ONE (10:52)
[2024-03-19] MEDS ORDERED: HYDROmorphone 1 MG/ML CARPUJECT ONE ×2 (11:11→13:47)
[2024-03-19] MEDS ORDERED: INSULIN REGULAR, HUMAN 300 UNIT/3 ML PEN ONE (11:12)
[2024-03-19] MEDS ORDERED: ONDANSETRON 4 MG/2 ML VIAL ONE ×2 (12:07→14:04)
[2024-03-19] MEDS ORDERED: SUGAMMADEX 200 MG/2 ML VIAL IVP ONE (13:14)
[2024-03-19] MEDS ORDERED: ACETAMINOPHEN 1,000 MG/100 ML 1,000 MG/100 ML BAG IV ONE (13:17)
[2024-03-19] MEDS: HYDROmorphone 0.5 MG/0.5 ML SYRINGE IVP PRN ×2 (13:50→16:17)
[2024-03-19] MEDS: fentaNYL 100 MCG/2 ML VIAL IVP PRN (13:55)
--- NOTE | 2024-03-19 13:59 | OPERATIVE REPORT ---
Operative Report General Procedure Data: Operation Date: 03/19/24 09:15 Proposed Procedures p Diagnostic Laparoscopy(Not Applicable) - Latricia Nguyễn DO Actual Procedures p Diagnostic Laparoscopy; PROCTOSCOPY; LAPARASCOPIC LOOP DIVERTING ILEOSTOMY; DRAINAGE OF RECTUS SHEATH HEMATOMA(Not Applicable) - Latricia Nguyễn DO Pre-Op Diagnosis: bowel leak at sigmoid perforation repair Anesthesia Type General Case Staff Anesthesia Provider: Audrey Gutierrez Anesthesia Provider: Adriana Baez Case Times Procedure Start: 03/19/24 11:05 Time out: 03/19/24 10:58 Tourniquet Tourniquet #: Tourniquet Site Padding: Pressure: Applied by: Time up #1: Time Down #1: Time Up #2: Time Down #2: Pre-Op Diagnosis: sigmoid perforation Post Op Diagnosis: sigmoid perforation, rectus sheath hematoma Procedure Note Intake, IV Amount (ml): 1,500 Estimated Blood Loss (ml): 50 Output, Urine Amount (ml): 400 Drain/Tube Type: Surya Buitrago round drain, Sanjiv and Other (ileostomy) Pathology: none Indications: 68F s/p sigmoid perforation during colonoscopy, s/p laparoscopic primary repair of colotomy, with continued feculant output 1 month after repair. Findings: Sigmoid colon walled off/adhesed to left lateral pelvic wall, with prior FRIEDA drain between colon and side wall. FRIEDA drain removed, leak test performed with proctoscopy and no leak detected. Loop diverting ileostomy created 20cm proximal to ICV. Softball sized firm mass within left rectus sheath, opened anteriorly and old hematoma evacuated. Rectus sheath closed over sanjiv drain. Complications: none Other Other Information/Narrative: The patient was met in the preoperative holding area all questions were answered and we will proceed to the operating room where she was placed supine low lithotomy position with both arms tucked. general anesthesia was she is induced by the FRIT MAKER. Antibiotics were administered. A yang was placed. the abdomen was prepped and draped in standard sterile fashion. A final timeout was performed with all members of the team being in agreement. The abdomen was entered via Moore technique at the supraumbilical position and a 10 mm blunt trocar was introduced. A laparoscope was inserted and 3 additional 5 mm trocars were introduced: 1 in the left lower quadrant and 2 in the right lower quadrant. Inspection revealed no evidence of entry trauma. There were a few omental adhesions to the anterior abdominal wall that were taken down bluntly. Inspection of the pelvis showed no fluid collection, there was no gross feculent matter within the abdomen. The sigmoid colon was seen to be strongly adhesed to the left lateral abdominal and pelvic wall, with the FRIEDA drain tracking along the left colic gutter between the pelvic sidewall and the colon. The degree of inflammation of the sigmoid colon was relatively mild given the patient's history. The prior FRIEDA drain was removed. The proctoscope was inserted through the anus and the rectum and sigmoid colon were insufflated with air wall of the sigmoid colon was submerged in water, to include the [place] tract and a hole where the track opened and took the rest of the peritoneal cavity. The sleep test demonstrated no air bubbles, it was a negative leak test. And thus no further intervention on the sigmoid colon to include oversewing or resection was included in the operation. A fresh FRIEDA drain was placed through one of the left lower quadrant trocar incisions into the pelvis. The cecum was identified and the terminal ileum was run in a retrograde fashion identifying the point of normal ileum 20 cm proximal to the ileocecal valve. A 1 inch x 1 inch area of skin from the previously marked ileostomy site in the right lower quadrant was excised sharply along with a column of subcutaneous tissue beneath it down to the level of the fascia. The fascia was incised in a cruciate manner, the rectus muscles were split and the loop ileostomy was brought up through the incision. The loop ileostomy was fashioned with 2-0 Vicryl sutures. When looking at the anterior abdominal wall laparoscopically there was a softball sized firm protruding mass present within the rectus sheath. This was opened anteriorly through a 3 cm vertical skin incision extending down to open the anterior rectus sheath and old hematoma contents were identified and evacuated the rectus sheath was irrigated hemostasis was ensured a [place] drain was placed into the rectus sheath the remainder of the rectus sheath was closed with 2 [id number] 0 Vicryl sutures and the skin was closed loosely with wilver over this. The trocars were removed. The fascia at the umbilical incision was also closed with [id number] 0 Vicryl sutures. The remaining skin incisions were closed loosely with wilver followed by dressing of gauze and paper tape. The patient was awoken from general anesthesia, all sponge and needle counts were correct, there was no complications, she was transferred to the PACU in good condition. Latricia Nguyễn DO, MARIELY General Surgeon, Jason
[2024-03-19] MEDS: ONDANSETRON 4 MG/2 ML VIAL IVP PRN (14:05)
--- NOTE | 2024-03-19 15:09 | CONSULTATION NOTE ---
Referring Provider Name of Referring Provider:: General surgery Consult Date: 03/19/24 Chief Complaint Chief Complaint Chief Complaint: Reason for consultation: Uncontrolled diabetes. History of Present Illness History Obtained From History obtained from: Previous chart notes, patient History of Present Illness HPI Comment/Other: Most of the quadrant previous chart notes. This is a 58 [id number] female with a past medical history of uncontrolled diabetes and complicated abdominal/bowel History which required several surgery in the past, Most recent 1 on 03/19/2024 for a decline perforation. Diagnostic colonoscopy on 02/10 was complicated by bowel perforation, return to OR on 02/11 for laparoscopic repair of sigmoid perforation with FRIEDA drain placement. Discharged to home on 02/18, readmitted overnight and then again discharged to home 02/19. Hospitalization was notable for difficult to control hyperglycemia with BG starting out in high 300s, ultimately requiring 40U lantus daily + SSI. Drain was intermittently serous then brown, however a CT with oral and rectal contrast on POD5 showed no leak. At the time of discharge, she was tolerating a regular diet with cloudy serous drain output. Discharge thru 03/01: On 02/21, she did present to the [facility] ED where a CT demonstrated no pelvic abscess, she was discharged to home from the ED. She is tolerating a regular diet with the exception of 1 day (02/27) where she had nausea and dry heaving. She denies fevers. She is having an episode of explosive loose stool every 3-4 days, with more normal BMs in between these episodes. She complains of pain "at the top of the vagina, inside the pelvis (s/p hysterectomy)", but denies vaginal discharge. She denies pneumaturia or brown/cloudy urine. She continues to have mild-mod LLQ pain, in the area of the sigmoid repair and also where the drain is lying. She is complaining of swelling in both legs and also calf pain. Her BG still ranges 200-300. Daughter August present in clinic, reports 10-15cc of brown/cloudy drainage from drain daily. 03/01-03/09 Outpatient BLE Duplex US negative for DVT. Patient did not take Rx'd lasix, but BLE edema has gone down significantly. CT A/P was done with IV/oral contrast but not rectal as ordered, no enteric contrast extravasation, sig decreased size of pelvic fluid collection, pelvic drain in place, overall sig decreased volume of pneumoperitoneum, but there is foci of air adjacent to sigmoid repair. Drain continues to be light brown, low volume. Pain at home is low level/manageable. She is tolerating a regular diet with only 1-2 episodes of sig nausea since last visit. Not having fevers. Still having significant fatigue, sleeping on couch as unable to walk downstairs to bedroom. Has increased daily insulin to 12U , but BG still ranging in 200s. Patient is status post surgery 03/19/2024 for perforated sigmoid. Per surgery no acute events during surgery. Please see surgical note per surgery. We were consulted for uncontrolled diabetes. Patient is full code Meds/Allgy Home Medications Ambulatory Orders Medication Instructions Recorded Confirmed atorvastatin 10 mg tablet 10 mg PO QPM 02/11/19 03/18/24 glimepiride 2 mg tablet 4 mg PO DAILY 10/23/22 03/18/24 albuterol sulfate 90 mcg/actuation 1 - 2 puff inhalation Q4HR PRN 02/09/24 03/18/24 aerosol inhaler (Ventolin HFA) Shortness Of Air/Wheezing glimepiride 2 mg tablet 2 mg PO QPM 02/09/24 03/18/24 insulin glargine 100 unit/mL (3 12 unit subcut DAILY 02/09/24 03/18/24 mL) subcutaneous pen (Lantus Solostar U-100 Insulin) Losartan Potassium [Cozaar] 100 mg PO DAILY 02/11/24 03/18/24 metformin 500 mg tablet 1,000 mg PO BID 02/11/24 03/18/24 oxycodone 5 mg tablet 5 mg PO Q4H PRN Pain #30 tabs 02/19/24 03/18/24 pantoprazole 40 mg tablet,delayed mg PO 03/18/24 03/18/24 release Allergies Allergies Allergy/AdvReac Type Severity Reaction Status Date / Time amoxicillin Allergy Hives Verified 03/19/24 08:54 latex Allergy Hives Verified 03/19/24 08:54 liraglutide (From Victoza) Allergy Unknown Verified 03/19/24 08:54 sulfamethoxazole (From Allergy Hives Verified 03/19/24 08:54 Septra) trimethoprim (From Septra) Allergy Hives Verified 03/19/24 08:54 lisinopril AdvReac Hives Verified 03/19/24 08:54 [facility] Medical History Medical History (Updated 03/19/24 @ 15:17 by Damian Gloria DO) Diabetes mellitus History of TIA (transient ischemic attack) Diabetes type 2, uncontrolled (11/10/12) Morbid obesity (12/10/12) Hypertension, essential, benign (06/05/11) GERD (gastroesophageal reflux disease) (12/09/06) Obstructive sleep apnea (12/08/13) Hyperlipidemia (12/15/06) Ovarian cancer (05/27/13) Osteoporosis (06/05/17) Acquired dilation of common bile duct (01/11/16) Nonalcoholic fatty liver disease (08/10/15) Osteoarthritis of knees, bilateral (05/20/13) Foot deformity (07/09/23) Fibromyalgia (02/11/13) Dry eye syndrome (07/09/17) Depression (10/19/14) Anemia (08/02/14) CARLOS A positive (03/01/13) Adrenal adenoma (01/11/16) Surgical History Surgical History H/O arthroscopic knee surgery History of elbow surgery Hx of colonoscopy H/O bilateral oophorectomy History of laparoscopy (~02/12/24) laparoscopic repair of sigmoid colon perforation Hx of cholecystectomy (12/15/06) Hx of hysterectomy (12/15/06) Hx of arthroscopy (12/15/06) Social History Social History (Updated 03/19/24 @ 08:59 by Nena Finn RN, LUCRETIA) Smoking Status: Never smoker Do you dip or chew tobacco?: No Living arrangement: At home Living Condition: With spouse/s.o. Relationship: Child Level: Assisted Home Mobility Equipment: Walker and Wheelchair Do you feel safe in your home environment?: Yes Suffered physical, verbal, emotional, or financial abuse?: No History of Abuse: No Frequency: Occasional Number of Amount/day: 1 Substance Use: denies use and other Substance Use Details: cbd/thc gummies 10mg 2 days ago, dragon bomb cbd for knees. 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 POLST Status: Full Code Results Lab Results 03/19/24 09:25 03/19/24 09:25 Other Lab Results: Lab Results x24hrs 03/19/24 03/19/24 03/19/24 Range/Units 13:53 12:59 11:50 WBC (4.8-10.8) x10^3/uL RBC (4.20-5.40) 10^6/uL Hgb (12.0-16.0) g/dL Hct (37.0-47.0) % MCV (81.0-99.0) fL MCH (27.0-31.0) pg MCHC (32.0-36.0) g/dL RDW (12.0-15.0) % Plt Count (130-450) 10^3/uL MPV (7.9-10.8) fL Neut # (Auto) (1.5-6.6) 10^3/uL Lymph # (Auto) (1.5-3.5) 10^3/uL [place] # (Auto) (0.0-1.0) 10^3/uL Eos # (Auto) (0.0-0.7) 10^3/uL Baso # (Auto) (0.0-0.1) 10^3/uL Absolute Nucleated RBC x10^3/uL Nucleated RBC % /100WBC PT (9.9-12.6) secs INR (0.8-1.2) Sodium (135-145) mmol/L Potassium (3.5-4.5) mmol/L Chloride (101-111) mmol/L Carbon Dioxide (21-32) mmol/L Anion Gap (6-13) BUN (6-20) mg/dL Creatinine (0.6-1.3) mg/dL Estimated GFR (MDRD) (>89) Glucose (74-104) mg/dL POC Whole Bld Glucose 248 235 199 (70-100) mg/dL Estimat Average Glucose (70-100) mg/dL Hemoglobin A1c % (4.27-6.07) % Calcium (8.5-10.3) mg/dL Total Bilirubin (0.2-1.0) mg/dL AST (10-42) IU/L ALT (10-60) IU/L Alkaline Phosphatase (42-121) IU/L C-Reactive Protein (<0.5) mg/dL Total Protein (6.4-8.9) g/dL Albumin (3.2-5.5) g/dL Globulin (2.1-4.2) g/dL Albumin/Globulin Ratio (1.0-2.2) Prealbumin (17-34) mg/dL Blood Type Antibody Screen 03/19/24 03/19/24 Range/Units 09:25 08:43 WBC 6.9 (4.8-10.8) x10^3/uL RBC 3.93 L (4.20-5.40) 10^6/uL Hgb 11.0 L (12.0-16.0) g/dL Hct 34.9 L (37.0-47.0) % MCV 88.8 (81.0-99.0) fL MCH 28.0 (27.0-31.0) pg MCHC 31.5 L (32.0-36.0) g/dL RDW 15.1 H (12.0-15.0) % Plt Count 265 (130-450) 10^3/uL MPV 11.0 H (7.9-10.8) fL Neut # (Auto) 4.4 (1.5-6.6) 10^3/uL Lymph # (Auto) 1.4 L (1.5-3.5) 10^3/uL [place] # (Auto) 0.8 (0.0-1.0) 10^3/uL Eos # (Auto) 0.2 (0.0-0.7) 10^3/uL Baso # (Auto) 0.0 (0.0-0.1) 10^3/uL Absolute Nucleated RBC 0.00 x10^3/uL Nucleated RBC % 0.0 /100WBC PT 13.8 H (9.9-12.6) secs INR 1.3 H (0.8-1.2) Sodium 129 L (135-145) mmol/L Potassium 4.2 (3.5-4.5) mmol/L Chloride 96 L (101-111) mmol/L Carbon Dioxide 26 (21-32) mmol/L Anion Gap 7.0 (6-13) BUN 18 (6-20) mg/dL Creatinine 0.8 (0.6-1.3) mg/dL Estimated GFR (MDRD) 72 L (>89) Glucose 202 H (74-104) mg/dL POC Whole Bld Glucose 213 (70-100) mg/dL Estimat Average Glucose 157 H (70-100) mg/dL Hemoglobin A1c % 7.1 H (4.27-6.07) % Calcium 9.5 (8.5-10.3) mg/dL Total Bilirubin 2.2 H (0.2-1.0) mg/dL AST 127 H (10-42) IU/L ALT 97 H (10-60) IU/L Alkaline Phosphatase 919 H (42-121) IU/L C-Reactive Protein 2.3 H (<0.5) mg/dL Total Protein 7.4 (6.4-8.9) g/dL Albumin 3.5 (3.2-5.5) g/dL Globulin 3.9 (2.1-4.2) g/dL Albumin/Globulin Ratio 0.9 L (1.0-2.2) Prealbumin 13 L (17-34) mg/dL Blood Type A POSITIVE Antibody Screen NEGATIVE Exam Exam Vital Signs Temperature 36 C L 03/19/24 14:50 Pulse Rate 99 H 03/19/24 14:50 Respiratory Rate 21 03/19/24 14:50 Blood Pressure 124/68 03/19/24 14:50 O2 Saturation 99 03/19/24 14:50 Conclusion/Plan Problem List (1) Diabetes mellitus: Plan: Uncontrolled diabetes, patient's A1c fluctuates between 9.3 and 7.1 in the last year or so. Patient is on multiple diabetic medication, compliance is questionable. While patient n.p.o. she will On insulin sliding scale. Patient will be started back on her regular insulin program as she proceeds to have oral intake. Patient will need a solid diabetic education Including the risk assessment for uncontrolled diabetes. Lab Results 03/19/24 09:25 03/19/24 09:25
[2024-03-19 15:36] LABS: BILIRUBIN,URINE NEGATIVE (NEGATIVE); GLUCOSE, URINE (UA) NEGATIVE (NEGATIVE); KETONES,URINE (UA) NEGATIVE (NEGATIVE); LEUKOCYTE ESTERASE, URINE NEGATIVE (NEGATIVE); NITRITE,URINE NEGATIVE (NEGATIVE); OCCULT BLOOD,URINE LARGE (NEGATIVE); PH,URINE 6.5 PH (5.0-7.5); PROTEIN,URINE 30 mg/dL (NEGATIVE); UROBILINOGEN,URINE 0.2 (NORMAL) E.U./dL (NORMAL)
[2024-03-19 15:37] LABS: CLARITY,URINE HAZY (CLEAR)
[2024-03-19 15:46] LABS: BACTERIA,URINE Rare /HPF (None Seen); SQUAMOUS EPITHELIAL CELL,UR NONE SEEN (<= Few); WBC,URINE 0-3 /HPF (0-5)
[2024-03-19] MEDS: LIDOCAINE 1%-EPI 1:100000 20 ML MDV ONE (15:54)
[2024-03-19] MEDS: BUPIVACAINE 0.25% PF 30 ML VIAL ONE (15:54)
[2024-03-19] MEDS: LACTATED RINGERS 1,000 ML IV SCH ×2 (15:55→16:25)
--- NOTE | 2024-03-19 17:25 | PHARMACY PROGRESS NOTE ---
Best Possible Medication History Admit Date and Time: 03/19/24 [id number] [facility] Statement: As the person ultimately responsible for medication therapy, providers are able to order a medication from an existing home medication list in [facility] via the "Reconcile Routine" prior to Confirmation of that medication by credit support counselor. Such practice is discouraged except when the physician, in their clinical judgment, deems that a medical need exists for a medication without regard to previous use.
[2024-03-19] MEDS: SODIUM CHLORIDE FLUSH 0.9% 10 ML SYRINGE IVP SCH (17:28)
[2024-03-19] MEDS: ACETAMINOPHEN 1,000 MG/100 ML 1,000 MG/100 ML BAG IV SCH (17:28)
[2024-03-19] MEDS: INSULIN REGULAR, HUMAN 300 UNIT/3 ML PEN SUBQ SCH (17:28)
[2024-03-19] MEDS: INSULIN LISPRO 300 UNIT/3 ML PEN SUBQ SCH (17:41)
--- NOTE | 2024-03-19 18:41 | ANESTHESIA POST OP EVALUATION ---
Anesthesia Post Eval Post Anesthesia Eval Vitals: Last Vital Signs Temp 36.5 C 03/19/24 18:32 Pulse 104 H 03/19/24 18:32 Resp 12 03/19/24 18:32 BP 117/68 03/19/24 18:32 Pulse Ox 94 03/19/24 18:32 O2 Flow Rate 6 03/19/24 17:30 CV Function Including HR & BP: Stable Pain Control: Satisfactory Nausea & Vomiting: Negative Mental Status: Baseline Respiratory Status: Airway Patent Hydration Status: Satisfactory Anesthesia Complications: None
[2024-03-19] MEDS: SODIUM CHLORIDE FLUSH 0.9% 10 ML SYRINGE IVP PRN (19:56)
[2024-03-19] MEDS ORDERED: METOCLOPRAMIDE 10 MG/2 ML VIAL IVP PRN (20:15)
[2024-03-19] MEDS ORDERED: INSULIN GLARGINE-YFGN 300 UNIT/3 ML PEN SUBQ SCH (21:00)
[2024-03-20] MEDS: PANTOPRAZOLE 40 MG TABLET PO SCH (06:23)
[2024-03-20 06:25] LABS: BASOPHILS % (AUTO) 0.5 %; EOSINOPHILS % (AUTO) 0.5 %; HCT - HEMATOCRIT 32.6 % (37.0-47.0); HGB - HEMOGLOBIN 10.1 g/dL (12.0-16.0); LYMPHOCYTES % (AUTO) 11.5 %; MEAN CORPUSCULAR HEMOGLOBIN 27.7 pg (27.0-31.0); MEAN CORPUSCULAR VOLUME 89.3 fL (81.0-99.0); MEAN PLATELET VOLUME 10.7 fL (7.9-10.8); MONOCYTES # (AUTO) 0.6 10^3/uL (0.0-1.0); MONOCYTES % (AUTO) 7.6 %; NEUTROPHILS # (AUTO) 6.6 10^3/uL (1.5-6.6); NEUTROPHILS % (AUTO) 79.7 %; PLT - PLATELET COUNT 245 10^3/uL (130-450); RED BLOOD COUNT 3.65 10^6/uL (4.20-5.40); RED CELL DISTRIBUTION WIDTH 15.4 % (12.0-15.0); WHITE BLOOD COUNT 8.3 x10^3/uL (4.8-10.8)
[2024-03-20 06:42] LABS: MAGNESIUM 1.4 mg/dL (1.7-2.3); POTASSIUM 4.6 mmol/L (3.5-4.5)
[2024-03-20] MEDS ORDERED: MAGNESIUM SULFATE 1 GM in SODIUM CHLORIDE 0.9% 50 ML IV ONE (07:32)
[2024-03-20] MEDS ORDERED: MAGNESIUM SULFATE 2 GRAM 2 GM/50 ML BAG IV ONE (07:34)
[2024-03-20] MEDS ORDERED: INSULIN GLARGINE-YFGN 300 UNIT/3 ML PEN SUBQ SCH (08:00)
[2024-03-20] MEDS: MAGNESIUM SULFATE 2 GRAM 2 GM/50 ML BAG IV ONE (08:20)
--- NOTE | 2024-03-20 09:10 | CONSULTATION NOTE ---
Referring Provider Name of Referring Provider:: General surgery Consult Date: 03/20/24 Chief Complaint Chief Complaint Chief Complaint: Reason for consultation: Uncontrolled diabetes. History of Present Illness History Obtained From History obtained from: Previous chart notes, patient History of Present Illness HPI Comment/Other: Most of the quadrant previous chart notes. This is a 58 [id number] female with a past medical history of uncontrolled diabetes and complicated abdominal/bowel History which required several surgery in the past, Most recent 1 on 03/19/2024 for a decline perforation. Diagnostic colonoscopy on 02/10 was complicated by bowel perforation, return to OR on 02/11 for laparoscopic repair of sigmoid perforation with FRIEDA drain placement. Discharged to home on 02/18, readmitted overnight and then again discharged to home 02/19. Hospitalization was notable for difficult to control hyperglycemia with BG starting out in high 300s, ultimately requiring 40U lantus daily + SSI. Drain was intermittently serous then brown, however a CT with oral and rectal contrast on POD5 showed no leak. At the time of discharge, she was tolerating a regular diet with cloudy serous drain output. Discharge thru 03/01: On 02/21, she did present to the [facility] ED where a CT demonstrated no pelvic abscess, she was discharged to home from the ED. She is tolerating a regular diet with the exception of 1 day (02/27) where she had nausea and dry heaving. She denies fevers. She is having an episode of explosive loose stool every 3-4 days, with more normal BMs in between these episodes. She complains of pain "at the top of the vagina, inside the pelvis (s/p hysterectomy)", but denies vaginal discharge. She denies pneumaturia or brown/cloudy urine. She continues to have mild-mod LLQ pain, in the area of the sigmoid repair and also where the drain is lying. She is complaining of swelling in both legs and also calf pain. Her BG still ranges 200-300. Daughter August present in clinic, reports 10-15cc of brown/cloudy drainage from drain daily. 03/01-03/09 Outpatient BLE Duplex US negative for DVT. Patient did not take Rx'd lasix, but BLE edema has gone down significantly. CT A/P was done with IV/oral contrast but not rectal as ordered, no enteric contrast extravasation, sig decreased size of pelvic fluid collection, pelvic drain in place, overall sig decreased volume of pneumoperitoneum, but there is foci of air adjacent to sigmoid repair. Drain continues to be light brown, low volume. Pain at home is low level/manageable. She is tolerating a regular diet with only 1-2 episodes of sig nausea since last visit. Not having fevers. Still having significant fatigue, sleeping on couch as unable to walk downstairs to bedroom. Has increased daily insulin to 12U , but BG still ranging in 200s. Patient is status post surgery 03/19/2024 for perforated sigmoid. Per surgery no acute events during surgery. Please see surgical note per surgery. We were consulted for uncontrolled diabetes. Patient is full code 03/20/2024: Patient has no complaints reports passing gas and burping. Has been on liquid diet, tolerating well.Daughter at bedside has quite a bit of questions about patient's diabetic Control Meds/Allgy Home Medications Ambulatory Orders Medication Instructions Recorded Confirmed atorvastatin 10 mg tablet 10 mg PO QPM 02/11/19 03/18/24 glimepiride 2 mg tablet 4 mg PO DAILY 10/23/22 03/18/24 albuterol sulfate 90 mcg/actuation 1 - 2 puff inhalation Q4HR PRN 02/09/24 03/18/24 aerosol inhaler (Ventolin HFA) Shortness Of Air/Wheezing insulin glargine 100 unit/mL (3 12 unit subcut DAILY 02/09/24 03/18/24 mL) subcutaneous pen (Lantus Solostar U-100 Insulin) Losartan Potassium [Cozaar] 100 mg PO DAILY 02/11/24 03/18/24 metformin 500 mg tablet 1,000 mg PO BID 02/11/24 03/18/24 oxycodone 5 mg tablet 5 mg PO Q4H PRN Pain #30 tabs 02/19/24 03/18/24 ondansetron 4 mg disintegrating 4 mg PO PRN PRN nausea and vomiting 03/19/24 03/19/24 tablet pantoprazole 40 mg tablet,delayed 40 mg PO DAILY 03/19/24 03/19/24 release tramadol 50 mg tablet 50 mg PO TID 03/19/24 03/19/24 Allergies Allergies Allergy/AdvReac Type Severity Reaction Status Date / Time amoxicillin Allergy Hives Verified 03/19/24 08:54 latex Allergy Hives Verified 03/19/24 08:54 liraglutide (From Victoza) Allergy Unknown Verified 03/19/24 08:54 sulfamethoxazole (From Allergy Hives Verified 03/19/24 08:54 Septra) trimethoprim (From Septra) Allergy Hives Verified 03/19/24 08:54 lisinopril AdvReac Hives Verified 03/19/24 08:54 [facility] Medical History Medical History (Updated 03/19/24 @ 15:17 by Damian Gloria DO) Diabetes mellitus History of TIA (transient ischemic attack) Diabetes type 2, uncontrolled (11/10/12) Morbid obesity (12/10/12) Hypertension, essential, benign (06/05/11) GERD (gastroesophageal reflux disease) (12/09/06) Obstructive sleep apnea (12/08/13) Hyperlipidemia (12/15/06) Ovarian cancer (05/27/13) Osteoporosis (06/05/17) Acquired dilation of common bile duct (01/11/16) Nonalcoholic fatty liver disease (08/10/15) Osteoarthritis of knees, bilateral (05/20/13) Foot deformity (07/09/23) Fibromyalgia (02/11/13) Dry eye syndrome (07/09/17) Depression (10/19/14) Anemia (08/02/14) CARLOS A positive (03/01/13) Adrenal adenoma (01/11/16) Surgical History Surgical History H/O arthroscopic knee surgery History of elbow surgery Hx of colonoscopy H/O bilateral oophorectomy History of laparoscopy (~02/12/24) laparoscopic repair of sigmoid colon perforation Hx of cholecystectomy (12/15/06) Hx of hysterectomy (12/15/06) Hx of arthroscopy (12/15/06) Social History Social History (Updated 03/19/24 @ 08:59 by Nena Finn RN, LUCRETIA) Smoking Status: Former smoker Do you dip or chew tobacco?: No Do you vape?: No Patient requests smoking cessation consult: No Initiate information on smoking cessation: No Living arrangement: At home Living Condition: With spouse/s.o. 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 POLST Status: Full Code Results Lab Results Lab results reviewed: Yes 03/20/24 06:17 03/20/24 06:17 Other Lab Results: Lab Results x24hrs 03/20/24 03/20/24 03/20/24 Range/Units 08:29 06:17 05:57 WBC 8.3 (4.8-10.8) x10^3/uL RBC 3.65 L (4.20-5.40) 10^6/uL Hgb 10.1 L (12.0-16.0) g/dL Hct 32.6 L (37.0-47.0) % MCV 89.3 (81.0-99.0) fL MCH 27.7 (27.0-31.0) pg MCHC 31.0 L (32.0-36.0) g/dL RDW 15.4 H (12.0-15.0) % Plt Count 245 (130-450) 10^3/uL MPV 10.7 (7.9-10.8) fL Neut # (Auto) 6.6 (1.5-6.6) 10^3/uL Lymph # (Auto) 1.0 L (1.5-3.5) 10^3/uL Harding # (Auto) 0.6 (0.0-1.0) 10^3/uL Eos # (Auto) 0.0 (0.0-0.7) 10^3/uL Baso # (Auto) 0.0 (0.0-0.1) 10^3/uL Absolute Nucleated RBC 0.00 x10^3/uL Nucleated RBC % 0.0 /100WBC PT (9.9-12.6) secs INR (0.8-1.2) Sodium 130 L (135-145) mmol/L Potassium 4.6 H (3.5-4.5) mmol/L Chloride 97 L (101-111) mmol/L Carbon Dioxide 26 (21-32) mmol/L Anion Gap 7.0 (6-13) BUN 16 (6-20) mg/dL Creatinine 1.0 (0.6-1.3) mg/dL Estimated GFR (MDRD) 55 L (>89) Glucose 220 H (74-104) mg/dL POC Whole Bld Glucose 219 206 (70-100) mg/dL Estimat Average Glucose (70-100) mg/dL Hemoglobin A1c % (4.27-6.07) % Calcium 9.0 (8.5-10.3) mg/dL Phosphorus 4.0 (2.5-5.0) mg/dL Magnesium 1.4 L (1.7-2.3) mg/dL Total Bilirubin (0.2-1.0) mg/dL AST (10-42) IU/L ALT (10-60) IU/L Alkaline Phosphatase (42-121) IU/L C-Reactive Protein (<0.5) mg/dL Total Protein (6.4-8.9) g/dL Albumin (3.2-5.5) g/dL Globulin (2.1-4.2) g/dL Albumin/Globulin Ratio (1.0-2.2) Prealbumin (17-34) mg/dL Vitamin B12 (180-914) pg/mL Urine Color Urine Clarity (CLEAR) Urine pH (5.0-7.5) PH Ur Specific Milo (1.002-1.030) Urine Protein (NEGATIVE) mg/dL Urine Glucose (UA) (NEGATIVE) mg/dL Urine Ketones (NEGATIVE) mg/dL Urine Occult Blood (NEGATIVE) Urine Nitrite (NEGATIVE) Urine Bilirubin (NEGATIVE) Urine Urobilinogen (NORMAL) E.U./dL Ur Leukocyte Esterase (NEGATIVE) Urine RBC (0-5) /HPF Urine WBC (0-5) /HPF Ur Squamous Epith Cells (<= Few) Urine Bacteria (None Seen) /HPF Ur Microscopic Review Urine Culture Comments Blood Type Antibody Screen 03/19/24 03/19/24 03/19/24 Range/Units 23:59 20:43 16:36 WBC (4.8-10.8) x10^3/uL RBC (4.20-5.40) 10^6/uL Hgb (12.0-16.0) g/dL Hct (37.0-47.0) % MCV (81.0-99.0) fL MCH (27.0-31.0) pg MCHC (32.0-36.0) g/dL RDW (12.0-15.0) % Plt Count (130-450) 10^3/uL MPV (7.9-10.8) fL Neut # (Auto) (1.5-6.6) 10^3/uL Lymph # (Auto) (1.5-3.5) 10^3/uL Harding # (Auto) (0.0-1.0) 10^3/uL Eos # (Auto) (0.0-0.7) 10^3/uL Baso # (Auto) (0.0-0.1) 10^3/uL Absolute Nucleated RBC x10^3/uL Nucleated RBC % /100WBC PT (9.9-12.6) secs INR (0.8-1.2) Sodium (135-145) mmol/L Potassium (3.5-4.5) mmol/L Chloride (101-111) mmol/L Carbon Dioxide (21-32) mmol/L Anion Gap (6-13) BUN (6-20) mg/dL Creatinine (0.6-1.3) mg/dL Estimated GFR (MDRD) (>89) Glucose (74-104) mg/dL POC Whole Bld Glucose 223 238 235 (70-100) mg/dL Estimat Average Glucose (70-100) mg/dL Hemoglobin A1c % (4.27-6.07) % Calcium (8.5-10.3) mg/dL Phosphorus (2.5-5.0) mg/dL Magnesium (1.7-2.3) mg/dL Total Bilirubin (0.2-1.0) mg/dL AST (10-42) IU/L ALT (10-60) IU/L Alkaline Phosphatase (42-121) IU/L C-Reactive Protein (<0.5) mg/dL Total Protein (6.4-8.9) g/dL Albumin (3.2-5.5) g/dL Globulin (2.1-4.2) g/dL Albumin/Globulin Ratio (1.0-2.2) Prealbumin (17-34) mg/dL Vitamin B12 (180-914) pg/mL Urine Color Urine Clarity (CLEAR) Urine pH (5.0-7.5) PH Ur Specific Milo (1.002-1.030) Urine Protein (NEGATIVE) mg/dL Urine Glucose (UA) (NEGATIVE) mg/dL Urine Ketones (NEGATIVE) mg/dL Urine Occult Blood (NEGATIVE) Urine Nitrite (NEGATIVE) Urine Bilirubin (NEGATIVE) Urine Urobilinogen (NORMAL) E.U./dL Ur Leukocyte Esterase (NEGATIVE) Urine RBC (0-5) /HPF Urine WBC (0-5) /HPF Ur Squamous Epith Cells (<= Few) Urine Bacteria (None Seen) /HPF Ur Microscopic Review Urine Culture Comments Blood Type Antibody Screen 03/19/24 03/19/24 03/19/24 Range/Units 14:33 13:53 12:59 WBC (4.8-10.8) x10^3/uL RBC (4.20-5.40) 10^6/uL Hgb (12.0-16.0) g/dL Hct (37.0-47.0) % MCV (81.0-99.0) fL MCH (27.0-31.0) pg MCHC (32.0-36.0) g/dL RDW (12.0-15.0) % Plt Count (130-450) 10^3/uL MPV (7.9-10.8) fL Neut # (Auto) (1.5-6.6) 10^3/uL Lymph # (Auto) (1.5-3.5) 10^3/uL Harding # (Auto) (0.0-1.0) 10^3/uL Eos # (Auto) (0.0-0.7) 10^3/uL Baso # (Auto) (0.0-0.1) 10^3/uL Absolute Nucleated RBC x10^3/uL Nucleated RBC % /100WBC PT (9.9-12.6) secs INR (0.8-1.2) Sodium (135-145) mmol/L Potassium (3.5-4.5) mmol/L Chloride (101-111) mmol/L Carbon Dioxide (21-32) mmol/L Anion Gap (6-13) BUN (6-20) mg/dL Creatinine (0.6-1.3) mg/dL Estimated GFR (MDRD) (>89) Glucose (74-104) mg/dL POC Whole Bld Glucose 248 235 (70-100) mg/dL Estimat Average Glucose (70-100) mg/dL Hemoglobin A1c % (4.27-6.07) % Calcium (8.5-10.3) mg/dL Phosphorus (2.5-5.0) mg/dL Magnesium (1.7-2.3) mg/dL Total Bilirubin (0.2-1.0) mg/dL AST (10-42) IU/L ALT (10-60) IU/L Alkaline Phosphatase (42-121) IU/L C-Reactive Protein (<0.5) mg/dL Total Protein (6.4-8.9) g/dL Albumin (3.2-5.5) g/dL Globulin (2.1-4.2) g/dL Albumin/Globulin Ratio (1.0-2.2) Prealbumin (17-34) mg/dL Vitamin B12 (180-914) pg/mL Urine Color YELLOW Urine Clarity HAZY (CLEAR) Urine pH 6.5 (5.0-7.5) PH Ur Specific Milo 1.020 (1.002-1.030) Urine Protein 30 H (NEGATIVE) mg/dL Urine Glucose (UA) NEGATIVE (NEGATIVE) mg/dL Urine Ketones NEGATIVE (NEGATIVE) mg/dL Urine Occult Blood LARGE H (NEGATIVE) Urine Nitrite NEGATIVE (NEGATIVE) Urine Bilirubin NEGATIVE (NEGATIVE) Urine Urobilinogen 0.2 (NORMAL) (NORMAL) E.U./dL Ur Leukocyte Esterase NEGATIVE (NEGATIVE) Urine RBC 11-25 H (0-5) /HPF Urine WBC 0-3 (0-5) /HPF Ur Squamous Epith Cells NONE SEEN (<= Few) Urine Bacteria Rare (None Seen) /HPF Ur Microscopic Review INDICATED Urine Culture Comments NOT INDICATED Blood Type Antibody Screen 03/19/24 03/19/24 Range/Units 11:50 09:25 WBC 6.9 (4.8-10.8) x10^3/uL RBC 3.93 L (4.20-5.40) 10^6/uL Hgb 11.0 L (12.0-16.0) g/dL Hct 34.9 L (37.0-47.0) % MCV 88.8 (81.0-99.0) fL MCH 28.0 (27.0-31.0) pg MCHC 31.5 L (32.0-36.0) g/dL RDW 15.1 H (12.0-15.0) % Plt Count 265 (130-450) 10^3/uL MPV 11.0 H (7.9-10.8) fL Neut # (Auto) 4.4 (1.5-6.6) 10^3/uL Lymph # (Auto) 1.4 L (1.5-3.5) 10^3/uL Harding # (Auto) 0.8 (0.0-1.0) 10^3/uL Eos # (Auto) 0.2 (0.0-0.7) 10^3/uL Baso # (Auto) 0.0 (0.0-0.1) 10^3/uL Absolute Nucleated RBC 0.00 x10^3/uL Nucleated RBC % 0.0 /100WBC PT 13.8 H (9.9-12.6) secs INR 1.3 H (0.8-1.2) Sodium 129 L (135-145) mmol/L Potassium 4.2 (3.5-4.5) mmol/L Chloride 96 L (101-111) mmol/L Carbon Dioxide 26 (21-32) mmol/L Anion Gap 7.0 (6-13) BUN 18 (6-20) mg/dL Creatinine 0.8 (0.6-1.3) mg/dL Estimated GFR (MDRD) 72 L (>89) Glucose 202 H (74-104) mg/dL POC Whole Bld Glucose 199 (70-100) mg/dL Estimat Average Glucose 157 H (70-100) mg/dL Hemoglobin A1c % 7.1 H (4.27-6.07) % Calcium 9.5 (8.5-10.3) mg/dL Phosphorus (2.5-5.0) mg/dL Magnesium (1.7-2.3) mg/dL Total Bilirubin 2.2 H (0.2-1.0) mg/dL AST 127 H (10-42) IU/L ALT 97 H (10-60) IU/L Alkaline Phosphatase 919 H (42-121) IU/L C-Reactive Protein 2.3 H (<0.5) mg/dL Total Protein 7.4 (6.4-8.9) g/dL Albumin 3.5 (3.2-5.5) g/dL Globulin 3.9 (2.1-4.2) g/dL Albumin/Globulin Ratio 0.9 L (1.0-2.2) Prealbumin 13 L (17-34) mg/dL Vitamin B12 249 (180-914) pg/mL Urine Color Urine Clarity (CLEAR) Urine pH (5.0-7.5) PH Ur Specific Milo (1.002-1.030) Urine Protein (NEGATIVE) mg/dL Urine Glucose (UA) (NEGATIVE) mg/dL Urine Ketones (NEGATIVE) mg/dL Urine Occult Blood (NEGATIVE) Urine Nitrite (NEGATIVE) Urine Bilirubin (NEGATIVE) Urine Urobilinogen (NORMAL) E.U./dL Ur Leukocyte Esterase (NEGATIVE) Urine RBC (0-5) /HPF Urine WBC (0-5) /HPF Ur Squamous Epith Cells (<= Few) Urine Bacteria (None Seen) /HPF Ur Microscopic Review Urine Culture Comments Blood Type A POSITIVE Antibody Screen NEGATIVE Exam Exam Vital Signs Temperature 36.5 C 03/20/24 05:17 Pulse Rate 99 H 03/20/24 05:17 Respiratory Rate 18 03/20/24 05:17 Blood Pressure 138/66 H 03/20/24 05:17 O2 Saturation 97 03/20/24 05:17 If not protocol: Oxygen Flow, liters/minute 6 03/19/24 17:30 Constitutional normal general appearance and no apparent distress [facility] normocephalic and head/scalp atraumatic Eyes PERRL and EOMs intact bilaterally Neck/C-Spine visual inspection normal and trachea midline Chest inspection of chest normal and palpation of chest normal Respiratory breath sounds equal bilaterally and normal respiratory effort Cardiovascular normal heart rate noted and regular rhythm noted Gastrointestinal abdomen soft to palpation Colostomy bag present, bandage clean and dry. 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 Patient is on multiple diabetic medication, compliance is questionable. Patient has been on liquid diet overnight. Patient received a total of 6 units of short acting insulin. Patient is on metformin and glipizide at home. Plan: Blood glucose every 4 hours, monitor insulin use and adjust long-acting plus sliding scale for home use. Consult dietitian for diabetic education. Likely patient will be on insulin at home and Discontinue p.o. medications At home. Lab Results Lab results reviewed: Yes 03/20/24 06:17 03/20/24 06:17
[2024-03-20] MEDS: LOSARTAN 50 MG TABLET PO SCH (11:18)
--- NOTE | 2024-03-20 12:57 | PROVIDER PROGRESS NOTE ---
Subjective General Admit Date: 03/19/24 Procedure Date: 03/19/24 Post Op Days: 1 Procedure Performed: dx laparoscopy (neg leak test), loop ileostomy, I&D rectus sheath hematoma Other Other Information/Narrative: POD1. Moderate pain control overnight - good pain control with all meds dosed, but would wake up in pain when meds wearing off. HD normal, afebrile. Mild nausea, but tolerated clears and few bites of solid food this AM. Has not yet gotten out of bed. Stoma is productive of air and liquid, pink and edematous. 3L UOP via yang - neg UA On admission, clear yellow urine. 100cc dark brown ileostomy output 80cc FRIEDA drain (pelvis) sanguinous --> serosanguinous light serosanguinous fluid from eagle drain/rectus sheath I&D site. Review of Systems Status of ROS: 10 or more systems reviewed and unremarkable except as noted in history and below Exam Exam Vital Signs Temperature 37.7 C 03/20/24 12:13 Pulse Rate 75 03/20/24 12:13 Respiratory Rate 16 03/20/24 12:13 Blood Pressure 143/76 H 03/20/24 12:13 O2 Saturation 94 03/20/24 12:13 If not protocol: Oxygen Flow, liters/minute 6 03/19/24 17:30 Constitutional normal general appearance and no apparent distress Respiratory normal respiratory effort Cardiovascular normal heart rate noted Gastrointestinal abdomen soft to palpation appropriate shahbaz-incisional/drain site ttp. All outputs are within expected limits (volume and character) for POD1 without e/o infection or postop bleeding. Extremities normal to inspection Psychiatry oriented x3 Skin skin color normal ABX Reporting Has patient been on IV antibiotics over the past 48 hours?: No Impression/Plan Problem List (1) Ileostomy present: Plan: History of sigmoid perforation during colonoscopy on 02/11/24 and laparoscopic primary repair of sigmoid colotomy on 02/12/24, which was complicated by persistent feculant drain output. Now POD1 s/p diagnostic laparoscopy (negative leak test at sigmoid repair), laparoscopic diverting loop ileostomy creating, and open I&D of left rectus sheath hematoma. Overall clinically stable thus far. Ileostomy is productive and patient tolerating initial PO intake. FRIEDA drainage is not feculant, rather sanguinous and clearing to SSF. Serous fluid from rectus sheath I&D site. Hgb stable. - regular diet - IVF down to 50 until tolerating adequate PO volume - DC celia (OK for shahbaz wick overnight, not during day) - CBC/Chemistry daily (mag replaced today) - start lovenox tonight - pain control: scheduled IV tylenol, prn PO oxycodone, prn IV dilaudid - up to chair TID - incentive spirometry (no abx) - ostomy nurse consult - patient/family teaching and supply coordination before discharge - PT consult - OT consult - SW consult for discharge planning (2) Diabetes mellitus: Plan: Uncontrolled. Ha1c 7.1. BG range in 200s this admission. On 10U lantus BID with MH-Dose SSI for now. - Hospitalist consult to aid with adjusting home medication regimen, as patient has been uncontrolled at home and inpatient - Second Hand consult to help with patient/family planning for home diet (3) Hypertension, essential, benign: Plan: Controlled, resume home losartan tomorrow. (4) Hyperlipidemia: Plan: Resume home statin Plan Latricia Nguyễn DO, FACS General Surgeon, [facility]
[2024-03-20] MEDS: LACTATED RINGERS 1,000 ML IV SCH (13:05)
[2024-03-20] MEDS: INSULIN LISPRO 300 UNIT/3 ML PEN SUBQ SCH (17:05)
[2024-03-20] MEDS: ENOXAPARIN 40 MG/0.4 ML SYRINGE SUBQ SCH (18:33)
[2024-03-20] MEDS: oxyCODONE 5 MG TABLET PO PRN (18:39)
[2024-03-20] MEDS: ATORVASTATIN 10 MG TABLET PO SCH (21:27)
[2024-03-21 05:30] LABS: BASOPHILS % (AUTO) 0.3 %; EOSINOPHILS # (AUTO) 0.3 10^3/uL (0.0-0.7); EOSINOPHILS % (AUTO) 3.7 %; HCT - HEMATOCRIT 32.1 % (37.0-47.0); HGB - HEMOGLOBIN 10.3 g/dL (12.0-16.0); LYMPHOCYTES # (AUTO) 1.1 10^3/uL (1.5-3.5); MEAN CORPUSCULAR HEMOGLOBIN 28.5 pg (27.0-31.0); MEAN CORPUSCULAR HGB CONC 32.1 g/dL (32.0-36.0); MEAN CORPUSCULAR VOLUME 88.9 fL (81.0-99.0); MEAN PLATELET VOLUME 11.6 fL (7.9-10.8); MONOCYTES # (AUTO) 0.7 10^3/uL (0.0-1.0); MONOCYTES % (AUTO) 8.3 %; NEUTROPHILS # (AUTO) 6.4 10^3/uL (1.5-6.6); NEUTROPHILS % (AUTO) 74.5 %; PLT - PLATELET COUNT 248 10^3/uL (130-450); RED BLOOD COUNT 3.61 10^6/uL (4.20-5.40); RED CELL DISTRIBUTION WIDTH 15.3 % (12.0-15.0); WHITE BLOOD COUNT 8.7 x10^3/uL (4.8-10.8)
[2024-03-21 05:44] LABS: CREATININE 0.7 mg/dL (0.6-1.3); POTASSIUM 4.2 mmol/L (3.5-4.5)
[2024-03-21] MEDS: PANTOPRAZOLE 40 MG TABLET PO SCH (08:51)
[2024-03-21] MEDS: SODIUM CHLORIDE 1 GM TABLET PO SCH (08:51)
--- NOTE | 2024-03-21 10:52 | CONSULTATION NOTE ---
Referring Provider Name of Referring Provider:: General surgery Consult Date: 03/20/24 Chief Complaint Chief Complaint Chief Complaint: Reason for consultation: Uncontrolled diabetes. History of Present Illness History Obtained From History obtained from: Previous chart notes, patient History of Present Illness HPI Comment/Other: Most of the quadrant previous chart notes. This is a 58 ddrgnb-dhyr-yct female with a past medical history of uncontrolled diabetes and complicated abdominal/bowel History which required several surgery in the past, Most recent 1 on 03/19/2024 for a decline perforation. Diagnostic colonoscopy on 02/10 was complicated by bowel perforation, return to OR on 02/11 for laparoscopic repair of sigmoid perforation with FRIEDA drain placement. Discharged to home on 02/18, readmitted overnight and then again discharged to home 02/19. Hospitalization was notable for difficult to control hyperglycemia with BG starting out in high 300s, ultimately requiring 40U lantus daily + SSI. Drain was intermittently serous then brown, however a CT with oral and rectal contrast on POD5 showed no leak. At the time of discharge, she was tolerating a regular diet with cloudy serous drain output. Discharge thru 03/01: On 02/21, she did present to the [facility] ED where a CT demonstrated no pelvic abscess, she was discharged to home from the ED. She is tolerating a regular diet with the exception of 1 day (02/27) where she had nausea and dry heaving. She denies fevers. She is having an episode of explosive loose stool every 3-4 days, with more normal BMs in between these episodes. She complains of pain "at the top of the vagina, inside the pelvis (s/p hysterectomy)", but denies vaginal discharge. She denies pneumaturia or brown/cloudy urine. She continues to have mild-mod LLQ pain, in the area of the sigmoid repair and also where the drain is lying. She is complaining of swelling in both legs and also calf pain. Her BG still ranges 200-300. Daughter August present in clinic, reports 10-15cc of brown/cloudy drainage from drain daily. 03/01-03/09 Outpatient BLE Duplex US negative for DVT. Patient did not take Rx'd lasix, but BLE edema has gone down significantly. CT A/P was done with IV/oral contrast but not rectal as ordered, no enteric contrast extravasation, sig decreased size of pelvic fluid collection, pelvic drain in place, overall sig decreased volume of pneumoperitoneum, but there is foci of air adjacent to sigmoid repair. Drain continues to be light brown, low volume. Pain at home is low level/manageable. She is tolerating a regular diet with only 1-2 episodes of sig nausea since last visit. Not having fevers. Still having significant fatigue, sleeping on couch as unable to walk downstairs to bedroom. Has increased daily insulin to 12U , but BG still ranging in 200s. Patient is status post surgery 03/19/2024 for perforated sigmoid. Per surgery no acute events during surgery. Please see surgical note per surgery. We were consulted for uncontrolled diabetes. Patient is full code 03/20/2024: Patient has no complaints reports passing gas and burping. Has been on liquid diet, tolerating well.Daughter at bedside has quite a bit of questions about patient's diabetic Control Meds/Allgy Home Medications Ambulatory Orders Medication Instructions Recorded Confirmed atorvastatin 10 mg tablet 10 mg PO QPM 02/11/19 03/18/24 glimepiride 2 mg tablet 4 mg PO DAILY 10/23/22 03/18/24 albuterol sulfate 90 mcg/actuation 1 - 2 puff inhalation Q4HR PRN 02/09/24 03/18/24 aerosol inhaler (Ventolin HFA) Shortness Of Air/Wheezing insulin glargine 100 unit/mL (3 12 unit subcut DAILY 02/09/24 03/18/24 mL) subcutaneous pen (Lantus Solostar U-100 Insulin) Losartan Potassium [Cozaar] 100 mg PO DAILY 02/11/24 03/18/24 metformin 500 mg tablet 1,000 mg PO BID 02/11/24 03/18/24 oxycodone 5 mg tablet 5 mg PO Q4H PRN Pain #30 tabs 02/19/24 03/18/24 ondansetron 4 mg disintegrating 4 mg PO PRN PRN nausea and vomiting 03/19/24 03/19/24 tablet pantoprazole 40 mg tablet,delayed 40 mg PO DAILY 03/19/24 03/19/24 release tramadol 50 mg tablet 50 mg PO TID 03/19/24 03/19/24 Allergies Allergies Allergy/AdvReac Type Severity Reaction Status Date / Time amoxicillin Allergy Hives Verified 03/19/24 08:54 latex Allergy Hives Verified 03/19/24 08:54 liraglutide (From Victoza) Allergy Unknown Verified 03/19/24 08:54 sulfamethoxazole (From Allergy Hives Verified 03/19/24 08:54 Septra) trimethoprim (From Septra) Allergy Hives Verified 03/19/24 08:54 lisinopril AdvReac Hives Verified 03/19/24 08:54 [facility] Medical History Medical History (Updated 03/20/24 @ 10:48 by Latricia Nguyễn DO) Diabetes mellitus History of TIA (transient ischemic attack) Diabetes type 2, uncontrolled (11/10/12) Morbid obesity (12/10/12) Hypertension, essential, benign (06/05/11) GERD (gastroesophageal reflux disease) (12/09/06) Obstructive sleep apnea (12/08/13) Hyperlipidemia (12/15/06) Ovarian cancer (05/27/13) Osteoporosis (06/05/17) Acquired dilation of common bile duct (01/11/16) Nonalcoholic fatty liver disease (08/10/15) Osteoarthritis of knees, bilateral (05/20/13) Foot deformity (07/09/23) Fibromyalgia (02/11/13) Dry eye syndrome (07/09/17) Depression (10/19/14) Anemia (08/02/14) CARLOS A positive (03/01/13) Adrenal adenoma (01/11/16) Surgical History Surgical History H/O arthroscopic knee surgery History of elbow surgery Hx of colonoscopy H/O bilateral oophorectomy History of laparoscopy (~02/12/24) laparoscopic repair of sigmoid colon perforation Hx of cholecystectomy (12/15/06) Hx of hysterectomy (12/15/06) Hx of arthroscopy (12/15/06) Social History Social History (Updated 03/19/24 @ 08:59 by Nena Finn RN, LUCRETIA) Smoking Status: Former smoker Do you dip or chew tobacco?: No Do you vape?: No Patient requests smoking cessation consult: No Initiate information on smoking cessation: No Living arrangement: At home Living Condition: With spouse/s.o. 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 # (Auto) 0.7 (0.0-1.0) 10^3/uL Eos # (Auto) 0.3 (0.0-0.7) 10^3/uL Baso # (Auto) 0.0 (0.0-0.1) 10^3/uL Absolute Nucleated RBC 0.00 x10^3/uL Nucleated RBC % 0.0 /100WBC Sodium 128 L (135-145) mmol/L Potassium 4.2 (3.5-4.5) mmol/L Chloride 95 L (101-111) mmol/L Carbon Dioxide 26 (21-32) mmol/L Anion Gap 7.0 (6-13) BUN 10 (6-20) mg/dL Creatinine 0.7 (0.6-1.3) mg/dL Estimated GFR (MDRD) 83 L (>89) Glucose 211 H (74-104) mg/dL POC Whole Bld Glucose 205 210 (70-100) mg/dL Calcium 9.0 (8.5-10.3) mg/dL 03/21/24 03/20/24 03/20/24 Range/Units 00:58 20:51 16:54 WBC (4.8-10.8) x10^3/uL RBC (4.20-5.40) 10^6/uL Hgb (12.0-16.0) g/dL Hct (37.0-47.0) % MCV (81.0-99.0) fL MCH (27.0-31.0) pg MCHC (32.0-36.0) g/dL RDW (12.0-15.0) % Plt Count (130-450) 10^3/uL MPV (7.9-10.8) fL Neut # (Auto) (1.5-6.6) 10^3/uL Lymph # (Auto) (1.5-3.5) 10^3/uL [place] # (Auto) (0.0-1.0) 10^3/uL Eos # (Auto) (0.0-0.7) 10^3/uL Baso # (Auto) (0.0-0.1) 10^3/uL Absolute Nucleated RBC x10^3/uL Nucleated RBC % /100WBC Sodium (135-145) mmol/L Potassium (3.5-4.5) mmol/L Chloride (101-111) mmol/L Carbon Dioxide (21-32) mmol/L Anion Gap (6-13) BUN (6-20) mg/dL Creatinine (0.6-1.3) mg/dL Estimated GFR (MDRD) (>89) Glucose (74-104) mg/dL POC Whole Bld Glucose 179 274 213 (70-100) mg/dL Calcium (8.5-10.3) mg/dL 03/20/24 Range/Units 11:45 WBC (4.8-10.8) x10^3/uL RBC (4.20-5.40) 10^6/uL Hgb (12.0-16.0) g/dL Hct (37.0-47.0) % MCV (81.0-99.0) fL MCH (27.0-31.0) pg MCHC (32.0-36.0) g/dL RDW (12.0-15.0) % Plt Count (130-450) 10^3/uL MPV (7.9-10.8) fL Neut # (Auto) (1.5-6.6) 10^3/uL Lymph # (Auto) (1.5-3.5) 10^3/uL [place] # (Auto) (0.0-1.0) 10^3/uL Eos # (Auto) (0.0-0.7) 10^3/uL Baso # (Auto) (0.0-0.1) 10^3/uL Absolute Nucleated RBC x10^3/uL Nucleated RBC % /100WBC Sodium (135-145) mmol/L Potassium (3.5-4.5) mmol/L Chloride (101-111) mmol/L Carbon Dioxide (21-32) mmol/L Anion Gap (6-13) BUN (6-20) mg/dL Creatinine (0.6-1.3) mg/dL Estimated GFR (MDRD) (>89) Glucose (74-104) mg/dL POC Whole Bld Glucose 225 (70-100) mg/dL Calcium (8.5-10.3) mg/dL Exam Exam Vital Signs Temperature 36.6 C 03/21/24 08:23 Pulse Rate 68 03/21/24 08:23 Respiratory Rate 20 03/21/24 08:23 Blood Pressure 148/72 H 03/21/24 08:23 O2 Saturation 95 03/21/24 08:23 If not protocol: Oxygen Flow, liters/minute 6 03/19/24 17:30 Constitutional normal general appearance and no apparent distress HENMT normocephalic and head/scalp atraumatic Eyes PERRL and EOMs intact bilaterally Neck/C-Spine visual inspection normal and trachea midline Chest inspection of chest normal and palpation of chest normal Respiratory breath sounds equal bilaterally and normal respiratory effort Cardiovascular normal heart rate noted and regular rhythm noted Gastrointestinal abdomen soft to palpation Colostomy bag present, bandage clean and dry. Extremities normal to inspection and normal to palpation Neurology it infrastructure manager II-XII intact and no movement abnormality noted Skin skin color normal and no lesions Conclusion/Plan Problem List (1) Ileostomy present: Plan: History of sigmoid perforation during colonoscopy on 02/11/24 and laparoscopic primary repair of sigmoid colotomy on 02/12/24, which was complicated by persistent feculant drain output. Now POD1 s/p diagnostic laparoscopy (negative leak test at sigmoid repair), laparoscopic diverting loop ileostomy creating, and open I&D of left rectus sheath hematoma. Overall clinically stable thus far. Ileostomy is productive and patient tolerating initial PO intake. FRIEDA drainage is not feculant, rather sanguinous and clearing to SSF. Serous fluid from rectus sheath I&D site. Hgb stable. - regular diet - IVF down to 50 until tolerating adequate PO volume - DC yang (OK for shahbaz wick overnight, not during day) - CBC/Chemistry daily (mag replaced today) - start lovenox tonight - pain control: scheduled IV tylenol, prn PO oxycodone, prn IV dilaudid - up to chair TID - incentive spirometry (no abx) - ostomy nurse consult - patient/family teaching and supply coordination before discharge - PT consult - OT consult - SW consult for discharge planning (2) Diabetes mellitus: Plan: Uncontrolled. Ha1c 7.1. BG range in 200s this admission. On 10U lantus BID with MH-Dose SSI for now. - Hospitalist consult to aid with adjusting home medication regimen, as patient has been uncontrolled at home and inpatient - Sign Poster consult to help with patient/family planning for home diet (3) Hypertension, essential, benign: Plan: Controlled, resume home losartan tomorrow. (4) Hyperlipidemia: Plan: Resume home statin Plan Latricia Nguyễn DO, FACS General Surgeon, [facility] Lab Results Lab results reviewed: Yes 03/21/24 04:38 03/21/24 04:38
--- NOTE | 2024-03-21 10:55 | PROVIDER PROGRESS NOTE ---
Subjective General Admit Date: 03/19/24 Procedure Date: 03/19/24 Post Op Days: 2 Procedure Performed: dx laparoscopy (neg leak test), loop ileostomy, I&D rectus sheath hematoma Other Other Information/Narrative: PO 1500 UOP 3.6L Ileostomy 125 FRIEDA 125 ssf Sanjiv - ssf on ABD pad HD stable-BP in 140-150s, AF. Leroy removed, voiding 3.6L via periwick. Only up to bathroom once yesterday (with some orthostasis), has not been up to chair yet. Tolerating PO (small bites yesterday, full meal this AM) and stoma productive/pink/patent. No feculant output in FRIEDA drain. Review of Systems Status of ROS: 10 or more systems reviewed and unremarkable except as noted in history and below Exam Exam Vital Signs Temperature 36.6 C 03/21/24 08:23 Pulse Rate 68 03/21/24 08:23 Respiratory Rate 20 03/21/24 08:23 Blood Pressure 148/72 H 03/21/24 08:23 O2 Saturation 95 03/21/24 08:23 If not protocol: Oxygen Flow, liters/minute 6 03/19/24 17:30 Constitutional normal general appearance and no apparent distress Respiratory normal respiratory effort Cardiovascular normal heart rate noted Gastrointestinal abdomen soft to palpation appropriate shahbaz-incisional/drain site ttp. All outputs are within expected limits (volume and character) without e/o infection, leak, or postop bleeding. Extremities normal to inspection Psychiatry oriented x3 Skin skin color normal Impression/Plan Problem List (1) Ileostomy present: Plan: History of sigmoid perforation during colonoscopy on 02/11/24 and laparoscopic primary repair of sigmoid colotomy on 02/12/24, which was complicated by persistent feculant drain output. Now POD2 s/p diagnostic laparoscopy (negative leak test at sigmoid repair), laparoscopic diverting loop ileostomy creating, and open I&D of left rectus sheath hematoma. Remains clinically stable. Ileostomy is productive and patient tolerating initial PO intake. FRIEDA drainage remains SSF. Serous fluid from rectus sheath I&D site. Hgb stable, WBC normal. - regular diet - dc IVF - CBC/Chemistry daily - continue ppx lovenox - pain control: scheduled PO tylenol, motrin and oxycontin (10mg BID), prn PO oxycodone, prn IV dilaudid - up to chair TID - incentive spirometry (no abx) - ostomy nurse consult - patient/family teaching and supply coordination before discharge - PT consult - OT consult - SW consult for discharge planning Dispo: pending support service consults and eval for safe home discharge (ostomy nurse, PT, OT, social work) (2) Diabetes mellitus: Plan: Uncontrolled. Ha1c 7.1. BG range in 200s this admission. - Appreciate hospitalist consult to aid with adjusting home medication regimen, as patient has been uncontrolled at home and inpatient - [place] consult to help with patient/family planning for home diet (3) Hypertension, essential, benign: Plan: Controlled, resume home losartan (4) Hyperlipidemia: Plan: Resume home statin Plan Latricia Nguyễn DO, FACS General Surgeon, [facility]
--- NOTE | 2024-03-21 11:08 | CONSULTATION NOTE ---
Referring Provider Name of Referring Provider:: General surgery Consult Date: 03/21/24 Chief Complaint Chief Complaint Chief Complaint: Reason for consultation: Uncontrolled diabetes History of Present Illness History Obtained From History obtained from: From previous chart notes and patient History of Present Illness HPI Comment/Other: This is a 58 [id number] female with a past medical history of uncontrolled diabetes and complicated abdominal/bowel History which required several surgery in the past, Most recent 1 on 03/19/2024 for a decline perforation. Diagnostic colonoscopy on 02/10 was complicated by bowel perforation, return to OR on 02/11 for laparoscopic repair of sigmoid perforation with FRIEDA drain placement. Discharged to home on 02/18, readmitted overnight and then again discharged to home 02/19. Hospitalization was notable for difficult to control hyperglycemia with BG starting out in high 300s, ultimately requiring 40U lantus daily + SSI. Drain was intermittently serous then brown, however a CT with oral and rectal contrast on POD5 showed no leak. At the time of discharge, she was tolerating a regular diet with cloudy serous drain output. Discharge thru 03/01: On 02/21, she did present to the [facility] ED where a CT demonstrated no pelvic abscess, she was discharged to home from the ED. She is tolerating a regular diet with the exception of 1 day (02/27) where she had nausea and dry heaving. She denies fevers. She is having an episode of explosive loose stool every 3-4 days, with more normal BMs in between these episodes. She complains of pain "at the top of the vagina, inside the pelvis (s/p hysterectomy)", but denies vaginal discharge. She denies pneumaturia or brown/cloudy urine. She continues to have mild-mod LLQ pain, in the area of the sigmoid repair and also where the drain is lying. She is complaining of swelling in both legs and also calf pain. Her BG still ranges 200-300. Daughter August present in clinic, reports 10-15cc of brown/cloudy drainage from drain daily. 03/01-03/09 Outpatient BLE Duplex US negative for DVT. Patient did not take Rx'd lasix, but BLE edema has gone down significantly. CT A/P was done with IV/oral contrast but not rectal as ordered, no enteric contrast extravasation, sig decreased size of pelvic fluid collection, pelvic drain in place, overall sig decreased volume of pneumoperitoneum, but there is foci of air adjacent to sigmoid repair. Drain continues to be light brown, low volume. Pain at home is low level/manageable. She is tolerating a regular diet with only 1-2 episodes of sig nausea since last visit. Not having fevers. Still having significant fatigue, sleeping on couch as unable to walk downstairs to bedroom. Has increased daily insulin to 12U , but BG still ranging in 200s. Patient is status post surgery 03/19/2024 for perforated sigmoid. Per surgery no acute events during surgery. Please see surgical note per surgery. We were consulted for uncontrolled diabetes. Patient is full code 03/20/2024: Patient has no complaints reports passing gas and burping. Has been on liquid diet, tolerating well.Daughter at bedside has quite a bit of questions about patient's diabetic Control 03/21/2024: Patient feels well, has no complaints. Patient has been on the moderate sliding scale insulin overnight. No overnight events Meds/Allgy Home Medications Ambulatory Orders Medication Instructions Recorded Confirmed atorvastatin 10 mg tablet 10 mg PO QPM 02/11/19 03/18/24 glimepiride 2 mg tablet 4 mg PO DAILY 10/23/22 03/18/24 albuterol sulfate 90 mcg/actuation 1 - 2 puff inhalation Q4HR PRN 02/09/24 03/18/24 aerosol inhaler (Ventolin HFA) Shortness Of Air/Wheezing insulin glargine 100 unit/mL (3 12 unit subcut DAILY 02/09/24 03/18/24 mL) subcutaneous pen (Lantus Solostar U-100 Insulin) Losartan Potassium [Cozaar] 100 mg PO DAILY 02/11/24 03/18/24 metformin 500 mg tablet 1,000 mg PO BID 02/11/24 03/18/24 oxycodone 5 mg tablet 5 mg PO Q4H PRN Pain #30 tabs 02/19/24 03/18/24 ondansetron 4 mg disintegrating 4 mg PO PRN PRN nausea and vomiting 03/19/24 03/19/24 tablet pantoprazole 40 mg tablet,delayed 40 mg PO DAILY 03/19/24 03/19/24 release tramadol 50 mg tablet 50 mg PO TID 10/18/24 10/18/24 Allergies Allergies Allergy/AdvReac Type Severity Reaction Status Date / Time amoxicillin Allergy Hives Verified 03/19/24 08:54 latex Allergy Hives Verified 03/19/24 08:54 liraglutide (From Victoza) Allergy Unknown Verified 03/19/24 08:54 sulfamethoxazole (From Allergy Hives Verified 03/19/24 08:54 Septra) trimethoprim (From Septra) Allergy Hives Verified 03/19/24 08:54 lisinopril AdvReac Hives Verified 03/19/24 08:54 [facility] Medical History Medical History (Updated 03/20/24 @ 10:48 by Latricia Nguyễn, ) Diabetes mellitus History of TIA (transient ischemic attack) Diabetes type 2, uncontrolled (11/10/12) Morbid obesity (12/10/12) Hypertension, essential, benign (06/05/11) GERD (gastroesophageal reflux disease) (12/09/06) Obstructive sleep apnea (12/08/13) Hyperlipidemia (12/15/06) Ovarian cancer (05/27/13) Osteoporosis (06/05/17) Acquired dilation of common bile duct (01/11/16) Nonalcoholic fatty liver disease (08/10/15) Osteoarthritis of knees, bilateral (05/20/13) Foot deformity (07/09/23) Fibromyalgia (02/11/13) Dry eye syndrome (07/09/17) Depression (10/19/14) Anemia (08/02/14) CARLOS A positive (03/01/13) Adrenal adenoma (01/11/16) Surgical History Surgical History H/O arthroscopic knee surgery History of elbow surgery Hx of colonoscopy H/O bilateral oophorectomy History of laparoscopy (~02/12/24) laparoscopic repair of sigmoid colon perforation Hx of cholecystectomy (12/15/06) Hx of hysterectomy (12/15/06) Hx of arthroscopy (12/15/06) Social History Social History (Updated 03/19/24 @ 08:59 by Nena Finn RN, LUCRETIA) Smoking Status: Former smoker Do you dip or chew tobacco?: No Do you vape?: No Patient requests smoking cessation consult: No Initiate information on smoking cessation: No Living arrangement: At home Living Condition: With spouse/s.o. 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 POLST Status: Full Code Results Lab Results Lab results reviewed: Yes 03/21/24 04:38 03/21/24 04:38 Other Lab Results: Lab Results x24hrs 03/21/24 03/21/24 03/21/24 Range/Units 07:34 04:54 04:38 WBC 8.7 (4.8-10.8) x10^3/uL RBC 3.61 L (4.20-5.40) 10^6/uL Hgb 10.3 L (12.0-16.0) g/dL Hct 32.1 L (37.0-47.0) % MCV 88.9 (81.0-99.0) fL MCH 28.5 (27.0-31.0) pg MCHC 32.1 (32.0-36.0) g/dL RDW 15.3 H (12.0-15.0) % Plt Count 248 (130-450) 10^3/uL MPV 11.6 H (7.9-10.8) fL Neut # (Auto) 6.4 (1.5-6.6) 10^3/uL Lymph # (Auto) 1.1 L (1.5-3.5) 10^3/uL [place] # (Auto) 0.7 (0.0-1.0) 10^3/uL Eos # (Auto) 0.3 (0.0-0.7) 10^3/uL Baso # (Auto) 0.0 (0.0-0.1) 10^3/uL Absolute Nucleated RBC 0.00 x10^3/uL Nucleated RBC % 0.0 /100WBC Sodium 128 L (135-145) mmol/L Potassium 4.2 (3.5-4.5) mmol/L Chloride 95 L (101-111) mmol/L Carbon Dioxide 26 (21-32) mmol/L Anion Gap 7.0 (6-13) BUN 10 (6-20) mg/dL Creatinine 0.7 (0.6-1.3) mg/dL Estimated GFR (MDRD) 83 L (>89) Glucose 211 H (74-104) mg/dL POC Whole Bld Glucose 205 210 (70-100) mg/dL Calcium 9.0 (8.5-10.3) mg/dL 03/21/24 03/20/24 03/20/24 Range/Units 00:58 20:51 16:54 WBC (4.8-10.8) x10^3/uL RBC (4.20-5.40) 10^6/uL Hgb (12.0-16.0) g/dL Hct (37.0-47.0) % MCV (81.0-99.0) fL MCH (27.0-31.0) pg MCHC (32.0-36.0) g/dL RDW (12.0-15.0) % Plt Count (130-450) 10^3/uL MPV (7.9-10.8) fL Neut # (Auto) (1.5-6.6) 10^3/uL Lymph # (Auto) (1.5-3.5) 10^3/uL [place] # (Auto) (0.0-1.0) 10^3/uL Eos # (Auto) (0.0-0.7) 10^3/uL Baso # (Auto) (0.0-0.1) 10^3/uL Absolute Nucleated RBC x10^3/uL Nucleated RBC % /100WBC Sodium (135-145) mmol/L Potassium (3.5-4.5) mmol/L Chloride (101-111) mmol/L Carbon Dioxide (21-32) mmol/L Anion Gap (6-13) BUN (6-20) mg/dL Creatinine (0.6-1.3) mg/dL Estimated GFR (MDRD) (>89) Glucose (74-104) mg/dL POC Whole Bld Glucose 179 274 213 (70-100) mg/dL Calcium (8.5-10.3) mg/dL 03/20/24 Range/Units 11:45 WBC (4.8-10.8) x10^3/uL RBC (4.20-5.40) 10^6/uL Hgb (12.0-16.0) g/dL Hct (37.0-47.0) % MCV (81.0-99.0) fL MCH (27.0-31.0) pg MCHC (32.0-36.0) g/dL RDW (12.0-15.0) % Plt Count (130-450) 10^3/uL MPV (7.9-10.8) fL Neut # (Auto) (1.5-6.6) 10^3/uL Lymph # (Auto) (1.5-3.5) 10^3/uL [place] # (Auto) (0.0-1.0) 10^3/uL Eos # (Auto) (0.0-0.7) 10^3/uL Baso # (Auto) (0.0-0.1) 10^3/uL Absolute Nucleated RBC x10^3/uL Nucleated RBC % /100WBC Sodium (135-145) mmol/L Potassium (3.5-4.5) mmol/L Chloride (101-111) mmol/L Carbon Dioxide (21-32) mmol/L Anion Gap (6-13) BUN (6-20) mg/dL Creatinine (0.6-1.3) mg/dL Estimated GFR (MDRD) (>89) Glucose (74-104) mg/dL POC Whole Bld Glucose 225 (70-100) mg/dL Calcium (8.5-10.3) mg/dL Review of Systems Status of ROS: 10 or more systems reviewed and unremarkable except as noted in history and below Exam Exam Vital Signs Temperature 36.6 C 03/21/24 08:23 Pulse Rate 68 03/21/24 08:23 Respiratory Rate 20 03/21/24 08:23 Blood Pressure 148/72 H 03/21/24 08:23 O2 Saturation 95 03/21/24 08:23 If not protocol: Oxygen Flow, liters/minute 6 03/19/24 17:30 Constitutional normal general appearance and no apparent distress [facility] normocephalic and head/scalp atraumatic Eyes PERRL and EOMs intact bilaterally Neck/C-Spine visual inspection normal and trachea midline Chest inspection of chest normal and palpation of chest normal Respiratory breath sounds equal bilaterally and normal respiratory effort Cardiovascular normal heart rate noted and regular rhythm noted Gastrointestinal abdomen soft to palpation Colostomy bag present, bandage clean and dry. Extremities normal to inspection and normal to palpation Neurology oriental rug stretcher II-XII intact and no movement abnormality noted Skin skin color normal and no lesions Gastrointestinal Colostomy bag present, bandage clean and dry. Conclusion/Plan Problem List (1) Diabetes mellitus: Plan: Uncontrolled diabetes, patient's A1c fluctuates between 9.3 and 7.1 in the last year or so. Patient is on multiple diabetic medication, compliance is questionable. Patient has been on diabetic diet overnight. She has been on the moderate sliding scale and required 18 units on insulin lispro overnight. However her BG is still in the mid to upper 200s. Plan: Will increase scale to Insulin high sliding scale. Blood glucose every 4 hours, monitor insulin use and adjust long-acting plus sliding scale for home use. Consult dietitian for diabetic education. Discontinue Metformin, glipizide. Lab Results Lab results reviewed: Yes 03/21/24 04:38 03/21/24 04:38
[2024-03-21] MEDS: INSULIN LISPRO 300 UNIT/3 ML PEN SUBQ SCH (12:35)
[2024-03-21] MEDS: oxyCODONE ER 10 MG TABLET PO SCH (12:35)
[2024-03-21] MEDS: ACETAMINOPHEN 500 MG TABLET PO SCH (13:54)
[2024-03-21] MEDS: IBUPROFEN 600 MG TABLET PO SCH (13:55)
[2024-03-22 05:45] LABS: BASOPHILS % (AUTO) 0.6 %; EOSINOPHILS # (AUTO) 0.7 10^3/uL (0.0-0.7); EOSINOPHILS % (AUTO) 8.9 %; HCT - HEMATOCRIT 31.1 % (37.0-47.0); HGB - HEMOGLOBIN 10.3 g/dL (12.0-16.0); LYMPHOCYTES # (AUTO) 1.1 10^3/uL (1.5-3.5); LYMPHOCYTES % (AUTO) 15.7 %; MEAN CORPUSCULAR HEMOGLOBIN 29.5 pg (27.0-31.0); MEAN CORPUSCULAR HGB CONC 33.1 g/dL (32.0-36.0); MEAN CORPUSCULAR VOLUME 89.1 fL (81.0-99.0); MEAN PLATELET VOLUME 11.3 fL (7.9-10.8); MONOCYTES # (AUTO) 0.6 10^3/uL (0.0-1.0); MONOCYTES % (AUTO) 7.7 %; NEUTROPHILS # (AUTO) 4.9 10^3/uL (1.5-6.6); PLT - PLATELET COUNT 222 10^3/uL (130-450); RED BLOOD COUNT 3.49 10^6/uL (4.20-5.40); WHITE BLOOD COUNT 7.3 x10^3/uL (4.8-10.8)
[2024-03-22 06:02] LABS: CALCIUM 8.7 mg/dL (8.5-10.3); CREATININE 0.8 mg/dL (0.6-1.3)
[2024-03-22] MEDS: INSULIN LISPRO 300 UNIT/3 ML PEN SUBQ SCH (09:16)
--- NOTE | 2024-03-22 09:29 | CONSULTATION NOTE ---
Referring Provider Name of Referring Provider:: Surgery Consult Date: 03/22/24 Chief Complaint Chief Complaint Chief Complaint: Consultation to manage Uncontrolled diabetes type 2 History of Present Illness History of Present Illness HPI Comment/Other: HPI Comment/Other: This is a 58 [id number] female with a past medical history of uncontrolled diabetes and complicated abdominal/bowel History which required several surgery in the past, Most recent 1 on 03/19/2024 for a decline perforation. Diagnostic colonoscopy on 02/10 was complicated by bowel perforation, return to OR on 02/11 for laparoscopic repair of sigmoid perforation with FRIEDA drain placement. Discharged to home on 02/18, readmitted overnight and then again discharged to home 02/19. Hospitalization was notable for difficult to control hyperglycemia with BG starting out in high 300s, ultimately requiring 40U lantus daily + SSI. Drain was intermittently serous then brown, however a CT with oral and rectal contrast on POD5 showed no leak. At the time of discharge, she was tolerating a regular diet with cloudy serous drain output. Discharge thru 03/01: On 02/21, she did present to the [facility] ED where a CT demonstrated no pelvic abscess, she was discharged to home from the ED. She is tolerating a regular diet with the exception of 1 day (02/27) where she had nausea and dry heaving. She denies fevers. She is having an episode of explosive loose stool every 3-4 days, with more normal BMs in between these episodes. She complains of pain "at the top of the vagina, inside the pelvis (s/p hysterectomy)", but denies vaginal discharge. She denies pneumaturia or brown/cloudy urine. She continues to have mild-mod LLQ pain, in the area of the sigmoid repair and also where the drain is lying. She is complaining of swelling in both legs and also calf pain. Her BG still ranges 200-300. Daughter August present in clinic, reports 10-15cc of brown/cloudy drainage from drain daily. 03/01-03/09 Outpatient BLE Duplex US negative for DVT. Patient did not take Rx'd lasix, but BLE edema has gone down significantly. CT A/P was done with IV/oral contrast but not rectal as ordered, no enteric contrast extravasation, sig decreased size of pelvic fluid collection, pelvic drain in place, overall sig decreased volume of pneumoperitoneum, but there is foci of air adjacent to sigmoid repair. Drain continues to be light brown, low volume. Pain at home is low level/manageable. She is tolerating a regular diet with only 1-2 episodes of sig nausea since last visit. Not having fevers. Still having significant fatigue, sleeping on couch as unable to walk downstairs to bedroom. Has increased daily insulin to 12U , but BG still ranging in 200s. Patient is status post surgery 03/19/2024 for perforated sigmoid. Per surgery no acute events during surgery. Please see surgical note per surgery. We were consulted for uncontrolled diabetes. Patient is full code 03/20/2024: Patient has no complaints reports passing gas and burping. Has been on liquid diet, tolerating well.Daughter at bedside has quite a bit of questions about patient's diabetic Control 03/21/2024: Patient feels well, has no complaints. Patient has been on the moderate sliding scale insulin overnight. No overnight events Meds/Allgy Home Medications Ambulatory Orders Medication Instructions Recorded Confirmed atorvastatin 10 mg tablet 10 mg PO QPM 02/11/19 03/18/24 glimepiride 2 mg tablet 4 mg PO DAILY 10/23/22 03/18/24 albuterol sulfate 90 mcg/actuation 1 - 2 puff inhalation Q4HR PRN 02/09/24 03/18/24 aerosol inhaler (Ventolin HFA) Shortness Of Air/Wheezing insulin glargine 100 unit/mL (3 12 unit subcut DAILY 02/09/24 03/18/24 mL) subcutaneous pen (Lantus Solostar U-100 Insulin) Losartan Potassium [Cozaar] 100 mg PO DAILY 02/11/24 03/18/24 metformin 500 mg tablet 1,000 mg PO BID 02/11/24 03/18/24 oxycodone 5 mg tablet 5 mg PO Q4H PRN Pain #30 tabs 02/19/24 03/18/24 ondansetron 4 mg disintegrating 4 mg PO PRN PRN nausea and vomiting 03/19/24 03/19/24 tablet pantoprazole 40 mg tablet,delayed 40 mg PO DAILY 03/19/24 03/19/24 release tramadol 50 mg tablet 50 mg PO TID 03/19/24 03/19/24 Allergies Allergies Allergy/AdvReac Type Severity Reaction Status Date / Time amoxicillin Allergy Hives Verified 03/19/24 08:54 latex Allergy Hives Verified 03/19/24 08:54 liraglutide (From Victoza) Allergy Unknown Verified 03/19/24 08:54 sulfamethoxazole (From Allergy Hives Verified 03/19/24 08:54 Septra) trimethoprim (From Septra) Allergy Hives Verified 03/19/24 08:54 lisinopril AdvReac Hives Verified 03/19/24 08:54 [facility] Medical History Medical History (Updated 03/20/24 @ 10:48 by Latricia Nguyễn DO) Diabetes mellitus History of TIA (transient ischemic attack) Diabetes type 2, uncontrolled (11/10/12) Morbid obesity (12/10/12) Hypertension, essential, benign (06/05/11) GERD (gastroesophageal reflux disease) (12/09/06) Obstructive sleep apnea (12/08/13) Hyperlipidemia (12/15/06) Ovarian cancer (05/27/13) Osteoporosis (06/05/17) Acquired dilation of common bile duct (01/11/16) Nonalcoholic fatty liver disease (08/10/15) Osteoarthritis of knees, bilateral (05/20/13) Foot deformity (07/09/23) Fibromyalgia (02/11/13) Dry eye syndrome (07/09/17) Depression (10/19/14) Anemia (08/02/14) CARLOS A positive (03/01/13) Adrenal adenoma (01/11/16) Surgical History Surgical History H/O arthroscopic knee surgery History of elbow surgery Hx of colonoscopy H/O bilateral oophorectomy History of laparoscopy (~02/12/24) laparoscopic repair of sigmoid colon perforation Hx of cholecystectomy (12/15/06) Hx of hysterectomy (12/15/06) Hx of arthroscopy (12/15/06) Social History Social History (Updated 03/19/24 @ 08:59 by Nena Finn RN, LUCRETIA) Smoking Status: Former smoker Do you dip or chew tobacco?: No Do you vape?: No Patient requests smoking cessation consult: No Initiate information on smoking cessation: No Living arrangement: At home Living Condition: With spouse/s.o. 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 POLST Status: Full Code Results Lab Results Lab results reviewed: Yes 03/22/24 05:16 03/22/24 05:16 Other Lab Results: Lab Results x24hrs 03/22/24 03/22/24 03/22/24 Range/Units 08:56 05:16 05:03 WBC 7.3 (4.8-10.8) x10^3/uL RBC 3.49 L (4.20-5.40) 10^6/uL Hgb 10.3 L (12.0-16.0) g/dL Hct 31.1 L (37.0-47.0) % MCV 89.1 (81.0-99.0) fL MCH 29.5 (27.0-31.0) pg MCHC 33.1 (32.0-36.0) g/dL RDW 15.0 (12.0-15.0) % Plt Count 222 (130-450) 10^3/uL MPV 11.3 H (7.9-10.8) fL Neut # (Auto) 4.9 (1.5-6.6) 10^3/uL Lymph # (Auto) 1.1 L (1.5-3.5) 10^3/uL [place] # (Auto) 0.6 (0.0-1.0) 10^3/uL Eos # (Auto) 0.7 (0.0-0.7) 10^3/uL Baso # (Auto) 0.0 (0.0-0.1) 10^3/uL Absolute Nucleated RBC 0.00 x10^3/uL Nucleated RBC % 0.0 /100WBC Sodium 132 L (135-145) mmol/L Potassium 4.0 (3.5-4.5) mmol/L Chloride 99 L (101-111) mmol/L Carbon Dioxide 27 (21-32) mmol/L Anion Gap 6.0 (6-13) BUN 15 (6-20) mg/dL Creatinine 0.8 (0.6-1.3) mg/dL Estimated GFR (MDRD) 72 L (>89) Glucose 229 H (74-104) mg/dL POC Whole Bld Glucose 199 207 (70-100) mg/dL Calcium 8.7 (8.5-10.3) mg/dL 03/22/24 03/21/24 03/21/24 Range/Units 00:59 20:53 16:33 WBC (4.8-10.8) x10^3/uL RBC (4.20-5.40) 10^6/uL Hgb (12.0-16.0) g/dL Hct (37.0-47.0) % MCV (81.0-99.0) fL MCH (27.0-31.0) pg MCHC (32.0-36.0) g/dL RDW (12.0-15.0) % Plt Count (130-450) 10^3/uL MPV (7.9-10.8) fL Neut # (Auto) (1.5-6.6) 10^3/uL Lymph # (Auto) (1.5-3.5) 10^3/uL [place] # (Auto) (0.0-1.0) 10^3/uL Eos # (Auto) (0.0-0.7) 10^3/uL Baso # (Auto) (0.0-0.1) 10^3/uL Absolute Nucleated RBC x10^3/uL Nucleated RBC % /100WBC Sodium (135-145) mmol/L Potassium (3.5-4.5) mmol/L Chloride (101-111) mmol/L Carbon Dioxide (21-32) mmol/L Anion Gap (6-13) BUN (6-20) mg/dL Creatinine (0.6-1.3) mg/dL Estimated GFR (MDRD) (>89) Glucose (74-104) mg/dL POC Whole Bld Glucose 185 186 207 (70-100) mg/dL Calcium (8.5-10.3) mg/dL 03/21/24 Range/Units 11:53 WBC (4.8-10.8) x10^3/uL RBC (4.20-5.40) 10^6/uL Hgb (12.0-16.0) g/dL Hct (37.0-47.0) % MCV (81.0-99.0) fL MCH (27.0-31.0) pg MCHC (32.0-36.0) g/dL RDW (12.0-15.0) % Plt Count (130-450) 10^3/uL MPV (7.9-10.8) fL Neut # (Auto) (1.5-6.6) 10^3/uL Lymph # (Auto) (1.5-3.5) 10^3/uL [place] # (Auto) (0.0-1.0) 10^3/uL Eos # (Auto) (0.0-0.7) 10^3/uL Baso # (Auto) (0.0-0.1) 10^3/uL Absolute Nucleated RBC x10^3/uL Nucleated RBC % /100WBC Sodium (135-145) mmol/L Potassium (3.5-4.5) mmol/L Chloride (101-111) mmol/L Carbon Dioxide (21-32) mmol/L Anion Gap (6-13) BUN (6-20) mg/dL Creatinine (0.6-1.3) mg/dL Estimated GFR (MDRD) (>89) Glucose (74-104) mg/dL POC Whole Bld Glucose 260 (70-100) mg/dL Calcium (8.5-10.3) mg/dL Review of Systems Status of ROS: 10 or more systems reviewed and unremarkable except as noted in history and below Exam Exam Vital Signs Temperature 36.2 C L 03/22/24 04:41 Pulse Rate 72 03/22/24 04:41 Respiratory Rate 20 03/22/24 04:41 Blood Pressure 150/72 H 03/22/24 04:41 O2 Saturation 96 03/22/24 04:41 If not protocol: Oxygen Flow, liters/minute 6 03/19/24 17:30 Constitutional normal general appearance and no apparent distress [facility] normocephalic and head/scalp atraumatic Eyes PERRL and EOMs intact bilaterally Neck/C-Spine visual inspection normal and trachea midline Chest inspection of chest normal and palpation of chest normal Respiratory breath sounds equal bilaterally and normal respiratory effort Cardiovascular normal heart rate noted and regular rhythm noted Gastrointestinal abdomen soft to palpation Colostomy bag present, bandage clean and dry. Extremities normal to inspection and normal to palpation Neurology whipped topping supervisor II-XII intact and no movement abnormality noted Skin skin color normal and no lesions Gastrointestinal Colostomy bag present, bandage clean and dry. Conclusion/Plan Problem List (1) Diabetes mellitus: Plan: Uncontrolled diabetes, patient's A1c fluctuates between 9.3 and 7.1 in the last year or so. Patient is on multiple diabetic medication, compliance is questionable. Patient has been on diabetic diet overnight. She has been on the moderate sliding scale and required 30 units on insulin lispro overnight. BG now better controlled in the mid 100s Plan: Started pt on 20U lantus and high scale insulin meal coverage. Pt will need dietitian and diabetic education upon discharge. Fire Claims Adjuster has been consulted Discontinue Metformin, glipizide upon discharge. Plan Juani JIMENEZ, Ph.D. Lab Results Lab results reviewed: Yes 03/22/24 05:16 03/22/24 05:16
[2024-03-22] MEDS: INSULIN GLARGINE-YFGN 300 UNIT/3 ML PEN SUBQ SCH (10:49)
--- NOTE | 2024-03-22 13:19 | PROVIDER PROGRESS NOTE ---
Subjective General Admit Date: 03/19/24 Procedure Date: 03/19/24 Post Op Days: 3 Procedure Performed: dx laparoscopy (neg leak test), loop ileostomy, I&D rectus sheath hematoma Other Other Information/Narrative: PO 1020 UOP 2124 Ileostomy 200 FRIEDA 20 ssf [place] - minimal? ssf on ABD pad HD stable-BP in 140-150s, AF. Up to chair most of day yesterday, and also this morning; used bedside commode to urinate. Tolerating PO full meals, stoma pink/patent/productive. No feculant output in FRIEDA drain - 20cc light serosanguinous output. Pain control on new PO regimen was good during the day, needed PRNs overnight. Review of Systems Status of ROS: 10 or more systems reviewed and unremarkable except as noted in history and below Exam Constitutional normal general appearance and no apparent distress Respiratory normal respiratory effort Cardiovascular normal heart rate noted Gastrointestinal abdomen soft to palpation minimal shahbaz-incisional/drain site ttp. All outputs are within expected limits (volume and character) without e/o infection, leak, or postop bleeding. Incisions with wilver CDI. Abdomen soft, nondistended. Stoma PPP. Extremities normal to inspection Psychiatry oriented x3 Skin skin color normal Impression/Plan Problem List (1) Large bowel perforation, intraoperative: Plan: History of sigmoid perforation during colonoscopy on 02/11/24 and laparoscopic primary repair of sigmoid colotomy on 02/12/24, which was complicated by persistent feculant drain output. Now POD3 s/p diagnostic laparoscopy (negative leak test at sigmoid repair), laparoscopic diverting loop ileostomy creation, and open I&D of left rectus sheath hematoma. Remains clinically stable. Tolerating regular diet with productive Ileostomy. No evidence of leak within pelvis; FRIEDA drain was removed today on rounds. Minimal ssf fluid from rectus sheath I&D site, plan to remove eagle drain tomorrow. Hgb stable, WBC normal. - regular diet - continue ppx lovenox - pain control: scheduled PO tylenol, motrin and oxycontin (10mg BID), prn PO oxycodone, prn IV dilaudid - up to chair TID - incentive spirometry (no abx) - Awaiting PT/OT - cannot dispo patient home until evaluated with recommendations for safe discharge - SW following - no inpatient ostomy nurse at , referral placed for outpatient teaching with [facility] wound and ostomy nurse after discharge. - will send patient home with initial ostomy supplies from hospital stock, then ostomy nurse will assist with ordering future supply. Dispo: pending support service consults and eval for safe home discharge (PT, OT, social work) (2) Diabetes mellitus: Plan: Appreciate IM inpatient evaluation of glucose control: - Now on on 20U lantus and high scale insulin meal coverage. - Discontinue Metformin, glipizide upon discharge. [facility] Diabetic Education clinic following patient - will see as inpatient tomorrow; outpatient ordered placed for ongoing care after discharge. Plan Latricia Nguyễn DO, FACS General Surgeon, [facility]
[2024-03-22] MEDS: CYANOCOBALAMIN 500 MCG TABLET PO SCH (19:51)
[2024-03-23] MEDS: INSULIN GLARGINE-YFGN 300 UNIT/3 ML PEN SUBQ SCH (08:54)
--- NOTE | 2024-03-23 14:03 | PROVIDER PROGRESS NOTE ---
Subjective Subjective Subjective: Patient is status post surgery 03/19/2024 for perforated sigmoid. Internal medicine consulted for uncontrolled diabetes. Patient feels well today; denies any fevers, chills, shortness of breath. Pain is well controlled. Current Medications Current Medications Current Medications: Current Medications Generic Name Dose Route Start Last Admin Trade Name Freq PRN Reason Stop Dose Admin Acetaminophen 1,000 mg 03/21/24 14:00 03/23/24 06:07 Acetaminophen 500 Mg Tablet PO 1,000 mg Q8HR SHANNAN Administration Atorvastatin Calcium 10 mg 03/20/24 21:00 03/22/24 21:52 Atorvastatin 10 Mg Tablet PO 10 mg QPM SHANNAN Administration Cyanocobalamin 500 mcg 03/22/24 17:00 03/23/24 08:56 Cyanocobalamin 500 Mcg Tablet PO 500 mcg DAILY SHANNAN Administration Enoxaparin Sodium 40 mg 03/20/24 18:00 03/23/24 08:56 Enoxaparin 40 Mg/0.4 Ml Syringe SUBQ 40 mg DAILY SHANNAN Administration Hydromorphone HCl 0.5 mg 03/19/24 14:11 03/23/24 06:05 Hydromorphone 0.5 Mg/0.5 Ml Syringe IVP 0.5 mg Q2H PRN Administration Severe Pain (Level 7-10) Ibuprofen 600 mg 03/21/24 14:00 03/23/24 06:08 Ibuprofen 600 Mg Tablet PO 600 mg Q8HR SHANNAN Administration Insulin Glargine-yfgn 30 unit 03/23/24 09:00 03/23/24 08:54 Insulin Glargine-Yfgn 300 Unit/3 Ml Pen SUBQ 30 unit DAILY SHANNAN Administration Insulin Human Lispro 3 - 11 unit 03/22/24 09:00 03/23/24 12:17 Insulin Lispro 300 Unit/3 Ml Pen SUBQ 9 unit ACHS [facility] Administration Protocol Insulin Human Lispro 5 unit 03/23/24 17:00 Insulin Lispro 300 Unit/3 Ml Pen SUBQ TIDWM [facility] Losartan Potassium 100 mg 03/20/24 09:00 03/23/24 08:57 Losartan 50 Mg Tablet PO 100 mg DAILY SHANNAN Administration Metoclopramide HCl 5 mg 03/19/24 20:15 Metoclopramide 10 Mg/2 Ml Vial IVP Q6HR PRN Nausea / Vomiting Ondansetron HCl 4 mg 03/19/24 14:11 03/22/24 09:55 Ondansetron 4 Mg/2 Ml Vial IVP 4 mg Q6H PRN Administration Nausea / Vomiting Oxycodone HCl 5 mg 03/19/24 14:11 03/23/24 10:57 Oxycodone 5 Mg Tablet PO 5 mg Q4HR PRN Administration Moderate Pain (Level 4-6) Oxycodone HCl 10 mg 03/21/24 11:00 03/23/24 08:57 Oxycodone Er 10 Mg Tablet PO 10 mg BID SHANNAN Administration Pantoprazole Sodium 40 mg 03/20/24 07:00 03/23/24 08:00 Pantoprazole 40 Mg Tablet PO 40 mg QDAC SHANNAN Administration Sodium Chloride 10 ml 03/19/24 17:00 03/23/24 08:57 Sodium Chloride Flush 0.9% 10 Ml Syringe IVP 10 ml 0100,0900,1700 SHANNAN Administration Sodium Chloride 10 ml 03/19/24 14:06 03/19/24 19:56 Sodium Chloride Flush 0.9% 10 Ml Syringe IVP 10 ml PRN PRN Administration NEEDED PER PROVIDER ORDERS Sodium Chloride 1 gm 03/21/24 09:00 03/23/24 08:56 Sodium Chloride 1 Gm Tablet PO 1 gm DAILY SHANNAN Administration Objective Vital Signs/Intake & Output Reviewed Vital Signs: Yes Vital Signs: Vital Signs x48h Pulse Pulse BP BP 03/23/24 11:38 85 76 165/88 H 140/70 H Intake & Output: Intake & Output 03/21/24 03/22/24 03/23/24 03/24/24 05:59 05:59 05:59 05:59 Intake Total 3126 / 3126 2023 660 / 660 Output Total 4115 / 4115 2345 / 2345 1949 Balance -989 / -989 -321 / -321 0 / 0 660 / 660 Objective General Appearance: positive No acute distress; negative Anxious or Lethargic Eyes Bilateral: positive Normal inspection, PERRL and EOMI ENT: positive ENT inspection nml, Pharynx nml and No signs of dehydration Neck: positive Nml inspection, Thyroid nml and No JVD Respiratory: positive Chest non-tender, No respiratory distress and Breath sounds nml Cardiovascular: positive Regular rate & rhythm, No murmur and No gallop Abdomen: positive Non-tender, No organomegaly and Other (colostomy bag in place); negative Tenderness, Guarding, Rebound, Hepatomegaly or Splenomegaly Back: positive Nml inspection; negative CVA tenderness (R) or CVA tenderness (L) Skin: positive Color nml, No rash, Warm and Dry; negative Skin rash Extremities: positive Non-tender Neurologic/Psychiatric: positive Oriented x3 and Mood/affect nml Lab Results 03/22/24 05:16 03/22/24 05:16 Other Labs: Lab Results x24hrs 03/23/24 03/23/24 03/22/24 Range/Units 11:29 07:42 20:11 POC Whole Bld Glucose 299 181 327 (70-100) mg/dL 03/22/24 Range/Units 16:29 POC Whole Bld Glucose 259 (70-100) mg/dL Diagnostic Imaging Diagnostic Imaging Results: positive Final report reviewed Assessment/Plan Problem List (1) Large bowel perforation, intraoperative: Impression: Patient is here for sigmoid perforation during colonoscopy on 02/10, with primary repair of sigmoid colotomy on 02/11 which is complicated with persistent drain output. She then had a diagnostic laparoscopically, postop day 4 at this time. Clinically stable, on regular diet, on scheduled Tylenol, Motrin, OxyContin. Is able to ambulate up to chair. PT evaluated the patient, recommended discharge home with home health assistance. (2) Diabetes mellitus: Impression: Sugars are now well controlled. Continue insulin glargine 30 units daily. Start 5 units with meals. Continue sliding scale. Qualifiers: Diabetes mellitus complication status: without complication Diabetes mellitus terminal superintendent insulin use: unspecified terminal superintendent insulin use status D iabetes mellitus type: type 2 Qualified Code(s): E11.9 - Type 2 diabetes mellitus without complications
[2024-03-23] MEDS: CYANOCOBALAMIN 1,000 MCG/ML VIAL IM ONE (17:23)
[2024-03-23] MEDS: INSULIN LISPRO 300 UNIT/3 ML PEN SUBQ SCH (17:25)
[2024-03-23 20:37] LABS: BILIRUBIN,URINE NEGATIVE (NEGATIVE); GLUCOSE, URINE (UA) NEGATIVE (NEGATIVE); KETONES,URINE (UA) NEGATIVE (NEGATIVE); LEUKOCYTE ESTERASE, URINE NEGATIVE (NEGATIVE); NITRITE,URINE NEGATIVE (NEGATIVE); OCCULT BLOOD,URINE NEGATIVE (NEGATIVE); PROTEIN,URINE NEGATIVE (NEGATIVE); UROBILINOGEN,URINE 0.2 (NORMAL) E.U./dL (NORMAL)
[2024-03-23 20:45] LABS: BACTERIA,URINE Rare /HPF (None Seen); CLARITY,URINE CLEAR (CLEAR); RBC,URINE None Seen /HPF (0-5); SQUAMOUS EPITHELIAL CELL,UR MOD Squamous (<= Few)
[2024-03-24 08:27] VITALS: O2SAT 92
--- NOTE | 2024-03-24 08:33 | PROVIDER PROGRESS NOTE ---
Subjective Subjective Subjective: Patient is status post surgery 03/19/2024 for perforated sigmoid. Internal medicine consulted for uncontrolled diabetes. Patient feels well today; denies any fevers, chills, shortness of breath. Pain is well controlled. Current Medications Current Medications Current Medications: Current Medications Generic Name Dose Route Start Last Admin Trade Name Freq PRN Reason Stop Dose Admin Acetaminophen 1,000 mg 03/21/24 14:00 03/24/24 06:08 Acetaminophen 500 Mg Tablet PO 1,000 mg Q8HR SHANNAN Administration Atorvastatin Calcium 10 mg 03/20/24 21:00 03/23/24 20:32 Atorvastatin 10 Mg Tablet PO 10 mg QPM SHANNAN Administration Cyanocobalamin 500 mcg 03/22/24 17:00 03/23/24 08:56 Cyanocobalamin 500 Mcg Tablet PO 500 mcg DAILY SHANNAN Administration Enoxaparin Sodium 40 mg 03/20/24 18:00 03/23/24 08:56 Enoxaparin 40 Mg/0.4 Ml Syringe SUBQ 40 mg DAILY SHANNAN Administration Hydromorphone HCl 0.5 mg 03/19/24 14:11 03/24/24 04:01 Hydromorphone 0.5 Mg/0.5 Ml Syringe IVP 0.5 mg Q2H PRN Administration Severe Pain (Level 7-10) Ibuprofen 600 mg 03/21/24 14:00 03/24/24 06:09 Ibuprofen 600 Mg Tablet PO 600 mg Q8HR SHANNAN Administration Insulin Glargine-yfgn 30 unit 03/23/24 09:00 03/23/24 08:54 Insulin Glargine-Yfgn 300 Unit/3 Ml Pen SUBQ 30 unit DAILY SHANNAN Administration Insulin Human Lispro 3 - 11 unit 03/22/24 09:00 03/23/24 20:32 Insulin Lispro 300 Unit/3 Ml Pen SUBQ 3 unit ACHS SHANNAN Administration Protocol Insulin Human Lispro 5 unit 03/23/24 17:00 03/23/24 17:25 Insulin Lispro 300 Unit/3 Ml Pen SUBQ 5 unit TIDWM SHANNAN Administration Losartan Potassium 100 mg 03/20/24 09:00 03/23/24 08:57 Losartan 50 Mg Tablet PO 100 mg DAILY SHANNAN Administration Metoclopramide HCl 5 mg 03/19/24 20:15 Metoclopramide 10 Mg/2 Ml Vial IVP Q6HR PRN Nausea / Vomiting Ondansetron HCl 4 mg 03/19/24 14:11 03/22/24 09:55 Ondansetron 4 Mg/2 Ml Vial IVP 4 mg Q6H PRN Administration Nausea / Vomiting Oxycodone HCl 5 mg 03/19/24 14:11 03/24/24 00:24 Oxycodone 5 Mg Tablet PO 5 mg Q4HR PRN Administration Moderate Pain (Level 4-6) Oxycodone HCl 10 mg 03/21/24 11:00 03/23/24 20:31 Oxycodone Er 10 Mg Tablet PO 10 mg BID SHANNAN Administration Pantoprazole Sodium 40 mg 03/20/24 07:00 03/24/24 06:09 Pantoprazole 40 Mg Tablet PO 40 mg QDAC SHANNAN Administration Sodium Chloride 10 ml 03/19/24 17:00 03/24/24 00:25 Sodium Chloride Flush 0.9% 10 Ml Syringe IVP 10 ml 0100,0900,1700 SHANNAN Administration Sodium Chloride 10 ml 03/19/24 14:06 03/19/24 19:56 Sodium Chloride Flush 0.9% 10 Ml Syringe IVP 10 ml PRN PRN Administration NEEDED PER PROVIDER ORDERS Sodium Chloride 1 gm 03/21/24 09:00 03/23/24 08:56 Sodium Chloride 1 Gm Tablet PO 1 gm DAILY SHANNAN Administration Objective Vital Signs/Intake & Output Reviewed Vital Signs: Yes Vital Signs: Vital Signs x48h Temp Pulse Resp BP Pulse Ox 03/24/24 08:00 97.7 F 87 16 154/73 H 92 03/24/24 00:35 98.2 F 84 20 131/70 H 97 Intake & Output: Intake & Output 03/22/24 03/23/24 03/24/24 03/25/24 05:59 05:59 05:59 05:59 Intake Total 2023 2390 / 2390 Output Total 2342344 1490 / 1490 1600 / 1600 Balance -321 / -321 0 / 0 900 / 900 -1600 / -1600 Objective General Appearance: positive No acute distress; negative Anxious or Lethargic Eyes Bilateral: positive Normal inspection, PERRL and EOMI ENT: positive ENT inspection nml, Pharynx nml and No signs of dehydration Neck: positive Nml inspection, Thyroid nml and No JVD Respiratory: positive Chest non-tender, No respiratory distress and Breath sounds nml Cardiovascular: positive Regular rate & rhythm, No murmur and No gallop Abdomen: positive Non-tender, No organomegaly and Other (colostomy bag in place); negative Tenderness, Guarding, Rebound, Hepatomegaly or Splenomegaly Back: positive Nml inspection; negative CVA tenderness (R) or CVA tenderness (L) Skin: positive Color nml, No rash, Warm and Dry; negative Skin rash Extremities: positive Non-tender Neurologic/Psychiatric: positive Oriented x3 and Mood/affect nml Lab Results 03/22/24 05:16 03/22/24 05:16 Other Labs: Lab Results x24hrs 03/24/24 03/23/24 03/23/24 Range/Units 07:32 20:17 20:00 POC Whole Bld Glucose 167 172 (70-100) mg/dL Urine Color LIGHT YELLOW Urine Clarity CLEAR (CLEAR) Urine pH 6.0 (5.0-7.5) PH Ur Specific [place] 1.010 (1.002-1.030) Urine Protein NEGATIVE (NEGATIVE) mg/dL Urine Glucose (UA) NEGATIVE (NEGATIVE) mg/dL Urine Ketones NEGATIVE (NEGATIVE) mg/dL Urine Occult Blood NEGATIVE (NEGATIVE) Urine Nitrite NEGATIVE (NEGATIVE) Urine Bilirubin NEGATIVE (NEGATIVE) Urine Urobilinogen 0.2 (NORMAL) (NORMAL) E.U./dL Ur Leukocyte Esterase NEGATIVE (NEGATIVE) Urine RBC None Seen (0-5) /HPF Urine WBC 4-5 (0-5) /HPF Ur Squamous Epith Cells MOD Squamous H (<= Few) Urine Bacteria Rare (None Seen) /HPF 03/23/24 03/23/24 Range/Units 16:41 11:29 POC Whole Bld Glucose 250 299 (70-100) mg/dL Urine Color Urine Clarity (CLEAR) Urine pH (5.0-7.5) PH Ur Specific [place] (1.002-1.030) Urine Protein (NEGATIVE) mg/dL Urine Glucose (UA) (NEGATIVE) mg/dL Urine Ketones (NEGATIVE) mg/dL Urine Occult Blood (NEGATIVE) Urine Nitrite (NEGATIVE) Urine Bilirubin (NEGATIVE) Urine Urobilinogen (NORMAL) E.U./dL Ur Leukocyte Esterase (NEGATIVE) Urine RBC (0-5) /HPF Urine WBC (0-5) /HPF Ur Squamous Epith Cells (<= Few) Urine Bacteria (None Seen) /HPF Diagnostic Imaging Diagnostic Imaging Results: positive Final report reviewed Assessment/Plan Problem List (1) Large bowel perforation, intraoperative: Impression: Patient is here for sigmoid perforation during colonoscopy on 02/10, with primary repair of sigmoid colotomy on 02/11 which is complicated with persistent drain output. She then had a diagnostic laparoscopically, postop day 5 at this time. Clinically stable, on regular diet, on scheduled Tylenol, Motrin, OxyContin. Is able to ambulate up to chair. PT evaluated the patient, recommended discharge home with home health assistance. (2) Diabetes mellitus: Impression: Sugars are now well controlled. Continue insulin glargine 30 units daily. Continue 5 units with meals. Continue sliding scale. Qualifiers: Diabetes mellitus type: type 2 Diabetes mellitus senior care insulin use: unspecified senior care insulin use status Diabetes mellitus complication status: without complication Qualified Code(s): E11.9 - Type 2 diabetes mellitus without complications (3) Hypertension, essential, benign: Impression: Losartan currently held. Blood pressure stable, continue to trend. (4) Morbid obesity: Impression: Encourage lifestyle modifications including exercise and diet. (5) Hyperlipidemia: Impression: Continue statin. Qualifiers: Hyperlipidemia type: unspecified Qualified Code(s): E78.5 - Hyperlipidemia, unspecified
--- NOTE | 2024-03-24 12:05 | Discharge Summary ---
Discharge Summary Admit Date: 03/19/24 Discharge Date: 03/24/24 Discharging Provider: Dr. Zheng DIAGNOSES Admission Diagnoses: Sigmoid perforation with ileostomy now present Diabetes mellitus Hypertension Hyperlipidemia Discharge Diagnoses with Status of Each Condition: Large bowel perforation, intraoperative diagnostic laparoscopy, loop ileostomy, I&D of rectus sheath hematoma. Patient is up out of bed, tolerating p.o. intake well, has ostomy bag which is clean, dry, intact. Diabetes mellituspatient started on insulin regimen, sugars are now well- controlled; will continue insulin glargine 30 units nightly, as well as 5 units with meals. She will follow-up with the diabetes management clinic in the outpatient setting for further help. Hypertensionpatient was on losartan, has not been taking it during her stay, with stable blood pressures. Continue to follow-up outpatient for resumption of losartan. Morbid obesitycounseled on lifestyle modifications. Hyperlipidemiacontinue statin. HPI History of Present Illness: Per Dr. Gloria: This is a 58 [id number] female with a past medical history of uncontrolled diabetes and complicated abdominal/bowel History which required several surgery in the past, Most recent 1 on 03/19/2024 for a decline perforation. Diagnostic colonoscopy on 02/10 was complicated by bowel perforation, return to OR on 02/11 for laparoscopic repair of sigmoid perforation with FRIEDA drain placement. Discharged to home on 02/18, readmitted overnight and then again discharged to home 02/19. Hospitalization was notable for difficult to control hyperglycemia with BG starting out in high 300s, ultimately requiring 40U lantus daily + SSI. Drain was intermittently serous then brown, however a CT with oral and rectal contrast on POD5 showed no leak. At the time of discharge, she was tolerating a regular diet with cloudy serous drain output. Discharge thru 03/01: On 02/21, she did present to the [facility] ED where a CT demonstrated no pelvic abscess, she was discharged to home from the ED. She is tolerating a regular diet with the exception of 1 day (02/27) where she had nausea and dry heaving. She denies fevers. She is having an episode of explosive loose stool every 3-4 days, with more normal BMs in between these episodes. She complains of pain "at the top of the vagina, inside the pelvis (s/p hysterectomy)", but denies vaginal discharge. She denies pneumaturia or brown/cloudy urine. She continues to have mild-mod LLQ pain, in the area of the sigmoid repair and also where the drain is lying. She is complaining of swelling in both legs and also calf pain. Her BG still ranges 200-300. Daughter August present in clinic, reports 10-15cc of brown/cloudy drainage from drain daily. 03/01-03/09 Outpatient BLE Duplex US negative for DVT. Patient did not take Rx'd lasix, but BLE edema has gone down significantly. CT A/P was done with IV/oral contrast but not rectal as ordered, no enteric contrast extravasation, sig decreased size of pelvic fluid collection, pelvic drain in place, overall sig decreased volume of pneumoperitoneum, but there is foci of air adjacent to sigmoid repair. Drain continues to be light brown, low volume. Pain at home is low level/manageable. She is tolerating a regular diet with only 1-2 episodes of sig nausea since last visit. Not having fevers. Still having significant fatigue, sleeping on couch as unable to walk downstairs to bedroom. Has increased daily insulin to 12U , but BG still ranging in 200s. Patient is status post surgery 03/19/2024 for perforated sigmoid. Per surgery no acute events during surgery. Please see surgical note per surgery. We were consulted for uncontrolled diabetes. Patient is full code CONSULTS | PROCEDURES Consultations: Internal medicine hospitalist, physical therapy, occupational therapy Procedures: Diagnostic Laparoscopy; PROCTOSCOPY; LAPARASCOPIC LOOP DIVERTING ILEOSTOMY; DRAINAGE OF RECTUS SHEATH HEMATOMA Abdomen/Pelvis CT Venous Duplex HOSPITAL COURSE Hospital Course: Patient is a 68-year-old female with a history of hypertension, hyperlipidemia who initially presented for diagnostic laparoscopy. She has a complicated surgical historyon 02/10 she was here for diagnostic colonoscopy which was complicated by bowel perforation. She returned to the OR 02/11 for laparoscopic repair of sigmoid perforation with FRIEDA drain replacement. She was seen in clinic, and CT scan was reviewedthis showed small foci of air adjacent to the sigmoid repair on CT, with continued cloudy brown character of drain. There is concern for ongoing small leak. As such, she returned for operative management on 03/19. At this time, diagnostic laparoscopy was done with a loop diverting ileostomy placed, as well as a drainage performed of a rectus sheath hematoma. She had a FRIEDA drain placed, which was removed. She tolerated a regular diet, her pain was well-controlled, and she was able to go up to chair. Medicine is following along for control of her diabetes; she will be discharged on 30 units Lantus at night, as well as 10 units 3 times daily with meals. She will follow-up with the diabetes management clinic outpatient. She also has a follow-up appointment with her surgeon, Dr. Zheng, on Friday. ALLERGIES Allergies Allergy/AdvReac Type Severity Reaction Status Date / Time amoxicillin Allergy Hives Verified 03/19/24 08:54 latex Allergy Hives Verified 03/19/24 08:54 liraglutide (From Victoza) Allergy Unknown Verified 03/19/24 08:54 sulfamethoxazole (From Allergy Hives Verified 03/19/24 08:54 Septra) trimethoprim (From Septra) Allergy Hives Verified 03/19/24 08:54 lisinopril AdvReac Hives Verified 03/19/24 08:54 MEDICATIONS Ambulatory Orders Medication Instructions Recorded Confirmed atorvastatin 10 mg tablet 10 mg PO QPM 02/11/19 03/18/24 albuterol sulfate 90 mcg/actuation 1 - 2 puff inhalation Q4HR PRN 02/09/24 03/18/24 aerosol inhaler (Ventolin HFA) Shortness Of Air/Wheezing Losartan Potassium [Cozaar] 100 mg PO DAILY 02/11/24 03/18/24 acetaminophen 500 mg tablet 1,000 mg (2 x 500 mg) PO Q8HR #30 03/24/24 tabs cyanocobalamin (vitamin B-12) 500 500 mcg PO DAILY #30 tabs 03/24/24 mcg tablet ibuprofen 600 mg tablet 600 mg PO Q8HR #30 tabs 03/24/24 insulin glargine-yfgn 100 unit/mL 30 unit (0.3 mL) subcut DAILY #15 03/24/24 (3 mL) subcutaneous pen mL insulin lispro 100 unit/mL 5 unit (0.05 mL) subcut TIDWM #15 03/24/24 subcutaneous pen (Humalog KwikPen mL (U-100) Insulin) oxycodone 5 mg tablet 5 mg PO Q4HR PRN Moderate Pain 03/24/24 (Level 4-6) #14 tabs pantoprazole 40 mg tablet,delayed 40 mg PO QDAC #30 tabs 03/24/24 release sodium chloride 1,000 mg soluble 1,000 mg PO DAILY #14 tabs 03/24/24 tablet PHYSICAL EXAM AT DISCHARGE General Appearance: positive No acute distress and Alert Eyes Bilateral: positive Normal inspection and EOMI ENT: positive Pharynx nml and No signs of dehydration Neck: positive Nml inspection, Thyroid nml and No JVD Respiratory: positive Chest non-tender, No respiratory distress and Breath sounds nml Cardiovascular: positive Regular rate & rhythm, No murmur and No gallop; negative Irregularly irregular, Extrasystoles, Tachycardia or Bradycardia Peripheral Pulses: positive 2+ Abdomen: positive Non-tender, No distention and Other (colostomy bag in place with fecal output, brown in color) Back: positive Nml inspection; negative CVA tenderness (R) or CVA tenderness (L) Skin: positive Color nml, No rash, Warm and Dry Extremities: positive Non-tender, Full ROM and No pedal edema Neurologic/Psychiatric: positive Oriented x3 and Mood/affect nml; negative Disoriented to person, Disoriented to place, Disoriented to time or Facial droop LABS 03/22/24 05:16 03/22/24 05:16 DIAGNOSTIC IMAGING Diagnostic Imaging Results: Final report reviewed FOLLOW UP Follow Up: Follow up with Dr. Zheng (03/30), appointment made. Folow up with Manufacturing Finance Manager. Follow up with primary care physician. TIME SPENT Time Spent in Discharge (Minutes): 30 Discharge Plan Discharge Patient Disposition: Home Health Service Condition: Stable Prescriptions: New acetaminophen 500 mg Tablet 1,000 mg PO Q8HR Qty: 30 0RF cyanocobalamin (vitamin B-12) 500 mcg Tablet 500 mcg PO DAILY Qty: 30 0RF ibuprofen 600 mg Tablet 600 mg PO Q8HR Qty: 30 0RF pantoprazole 40 mg Tablet,Delayed Release (Dr/Ec) 40 mg PO QDAC Qty: 30 0RF oxycodone 5 mg Tablet 5 mg PO Q4HR PRN (Reason: Moderate Pain (Level 4-6)) Qty: 14 0RF insulin lispro [Humalog KwikPen Insulin] 100 unit/mL Insulin Pen 5 unit subcut TIDWM Qty: 15 0RF sodium chloride 1,000 mg Tablet,Soluble 1,000 mg PO DAILY Qty: 14 0RF insulin glargine-yfgn 100 unit/mL (3 mL) Insulin Pen 30 unit subcut DAILY Qty: 15 0RF Continued atorvastatin 10 MG tablet 10 mg PO QPM albuterol sulfate [Ventolin HFA] 200 PUFFS/18 GM HFA aerosol inhaler 1 - 2 puff inhalation Q4HR PRN (Reason: Shortness Of Air/Wheezing) Rx Instructions: patient states that she does not use often, PRN Losartan Potassium [Cozaar] 100 MG tablet 100 mg PO DAILY Discontinued glimepiride 2 MG tablet 4 mg PO DAILY Patient Comments: TAKE 1 TABLET BY MOUTH EVERY DAY FOR DIABETES Rx Instructions: 4mg AM, 2mg PM insulin glargine [Lantus Solostar U-100 Insulin] 100 UNIT/ML insulin pen 12 unit subcut DAILY Rx Instructions: Patient states that she administers at 10:30AM metformin 500 MG tablet 1,000 mg PO BID Rx Instructions: 2 tabs AM, 2 tabs PM oxycodone 5 MG tablet 5 mg PO Q4H PRN (Reason: Pain) Qty: 30 0RF Rx Instructions: Take with food. Do Not drive while taking medication. ondansetron 4 mg tablet,disintegrating 4 mg PO PRN PRN (Reason: nausea and vomiting) Patient Comments: TAKE 1 TABLET BY MOUTH NEEDED EVERY 6 HOURS NEEDED FOR NAUSEA/VOMITING tramadol 50 mg tablet 50 mg PO TID Patient Comments: TAKE 1 TO 2 TABLETS BY MOUTH THREE TIMES DAILY NEEDED FOR BACK AND KNEE PAIN Rx Instructions: 1-2 tabs 3x daily as needed for back and knee pain. pantoprazole 40 mg tablet,delayed release (DR/EC) 40 mg PO DAILY Activity Restrictions: Activity as Tolerated Diet: Diabetic Health Concerns: You have been following with your surgeon for a while. You came in as your surgeon was concerned about a possible leak. On 03/19 you underwent surgical repair, at that time, you had a diagnostic laparoscopy done, and a loop diverting ileostomy placed. You had a surgical drain placed, which was subsequently removed. You have had a very good recovery, you been eating and drinking well. You have been able to get out of bed. You are moving your bowels well. While you are here, we worked on your diabetes management. He will be following up with the diabetes management care nurse, Lucille. We will be discharging you home on 30 units of Lantus, the long-acting insulin, that you will be taking every morning. You will also be doing 5 units of insulin lispro, the short acting insulin, 3 times a day. You already have a glucose monitoring device which you will be bringing in with you to your diabetes care management appointments. We talked about resuming your cholesterol pill and your hypertension pill when you get home as well. It will be important to also follow-up with your surgeon, Dr. Nguyễn; you already have an appointment scheduled for next Friday. You should also call your primary care physician and schedule a follow-up appointment so she is up-to-date with all of this. Care Plan Goals: 1. Continue to heal well from your surgery. Follow-up with your surgeon, next appointment on 03/30. 2. Follow-up with your diabetes care management team. Bring in your glucose log on your device. Continue 30 units Lantus at night, 5 units lispro with meals. 3. Continue your blood pressure and your cholesterol pills. 4. Continue to make progress in your physical rehabilitation. 5. Continue to take good care of your colostomy bag. Print Language: Uzbek Patient Instructions: Surgery Anesthesia After Follow-up Care: Latricia Nguyễn DO [Provider Admit Priv/Credential] - 03/30/24 Ruthie Lima PA-C [Primary Care Provider] - Manufacturing Finance Manager,ANH, RN, CDE [Registered Nurse] -
--- NOTE | 2024-03-24 17:08 | PROVIDER PROGRESS NOTE ---
Subjective General Admit Date: 03/19/24 Procedure Date: 03/19/24 Post Op Days: 5 Procedure Performed: dx laparoscopy (neg leak test), loop ileostomy, I&D rectus sheath hematoma Other Other Information/Narrative: Pain well controlled. Eating well, voiding normally. Cleared by PT for home with home health PT. RFIEDA drain removed on Friday. Rectus sheath wound has scant ssf on guaze. Review of Systems Status of ROS: 10 or more systems reviewed and unremarkable except as noted in history and below Exam Constitutional normal general appearance and no apparent distress Respiratory normal respiratory effort Cardiovascular normal heart rate noted Gastrointestinal abdomen soft to palpation minimal shahbaz-incisional/drain site ttp. Abdomen is soft/nondistended. Scant ssf on gauze at hematoma incision - eagle drain removed on . Incisions with wilver CDI. Stoma PPP. Extremities normal to inspection Psychiatry oriented x3 Skin skin color normal Impression/Plan Problem List (1) Large bowel perforation, intraoperative: Plan: History of sigmoid perforation during colonoscopy on 02/11/24 and laparoscopic primary repair of sigmoid colotomy on 02/12/24, which was complicated by persistent feculant drain output. Now POD5 s/p diagnostic laparoscopy (negative leak test at sigmoid repair), laparoscopic diverting loop ileostomy creation, and open I&D of left rectus sheath hematoma. Remains clinically stable. Tolerating regular diet with productive Ileostomy. Minimal ssf fluid from rectus sheath I&D site, removed eagle today. - regular diet - continue ppx lovenox - pain control: scheduled PO tylenol, motrin and oxycontin (10mg BID), prn PO oxycodone, - up to chair TID - incentive spirometry (no abx) - Cleared by PT/OT for home with home health PT - no inpatient ostomy nurse at , referral placed for outpatient teaching with [facility] wound and ostomy nurse after discharge. - will send patient home with initial ostomy supplies from hospital stock, then ostomy nurse will assist with ordering future supply. Dispo: DC home today. Follow up with me on Friday 03/30 (2) Diabetes mellitus: Plan: Appreciate IM inpatient evaluation of glucose control: - Now on on 30U lantus and high scale insulin meal coverage. - Discontinue Metformin, glipizide upon discharge. [facility] [place] [facility] following patient - will see in outpatient follow up. (outpatient ordered placed) . 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
--- NOTE | 2024-03-31 17:36 | PT Plan of Care ---
PT Inpatient Plan of Care DIAGNOSIS Diagnosis: bowel perforation Referring Provider: Latricia Nguyễn Patient Status: Inpatient CHIEF COMPLAINT Chief Complaint: abdominal pain Onset of Chief Complaint: 03/19/2024 MEDICAL/SURGICAL HISTORY Medical History (Updated 03/31/24 @ 07:35 by Audrey Gutierrez CRNA) JS developed symptoms 3 days ago. No acute distress. chest xray was normal Diabetes mellitus History of TIA (transient ischemic attack) Diabetes type 2, uncontrolled (11/10/12) Morbid obesity (12/10/12) Hypertension, essential, benign (06/05/11) GERD (gastroesophageal reflux disease) (12/09/06) Obstructive sleep apnea (12/08/13) Hyperlipidemia (12/15/06) Ovarian cancer (05/27/13) Osteoporosis (06/05/17) Acquired dilation of common bile duct (01/11/16) Nonalcoholic fatty liver disease (08/10/15) Osteoarthritis of knees, bilateral (05/20/13) Foot deformity (07/09/23) Fibromyalgia (02/11/13) Dry eye syndrome (07/09/17) Depression (10/19/14) Anemia (08/02/14) CARLOS A positive (03/01/13) Adrenal adenoma (01/11/16) Surgical History H/O arthroscopic knee surgery History of elbow surgery Hx of colonoscopy H/O bilateral oophorectomy History of laparoscopy (~02/12/24) laparoscopic repair of sigmoid colon perforation Hx of cholecystectomy (12/15/06) Hx of hysterectomy (12/15/06) Hx of arthroscopy (12/15/06) BALANCE/FUNCTIONAL RESULTS Sitting Balance: Fair Standing Balance: Fair Tinetti Assessment Interpretation: High Fall Risk ASSESSMENT Assessment: The pt is a 68 y/o F who was admitted on 03/19 due to complications from a perforated bowel. She lives with her son and daughter who support her with ADLs. Pt uses canes, FWW, and office chair for transfers and walking in home. She has a wheelchair that is used to help her down the ramp and for long distances. She reports LLE weakness and observed L foot deformity due to 10 y.o fracture. Pt completed log roll towards the left with continuous cueing, using left hand rails, and ModAx1. Supine to sit with Modx2, pt required rest break after sitting up. STS MinAx2 with daughter talking her through the pain. She was able walk to bedside commode 3 ft with CGAx2, reported she needs additional time for urinating. Pt demonstrates low tolerance & increased pain with activity with additional time between transfers. PT educated on rest breaks and skin checks. Daughter is very supportive and plans to install grab bars for shower and is familiar with HH. Patient will benefit from skilled PT due to pain and limited mobility. When medically cleared PT recommends discharge to home with home health assistance. PATIENT/FAMILY GOALS Patient/Family Goals: To be safe to go home GOALS Improve supine to sit to:: Contact Guard Improve sit to stand to:: Contact Guard Improve gait ability to:: SBA Advance Assistive Device to:: Front Wheeled Walker Increase distance walked to (in feet):: 10 Improve Sitting Balance to:: Good PLAN Frequency: 1-2x/day Duration: Until goals are met DISCHARGE RECOMMENDATIONS Discharge Location: Previous Living Situation Support/Services Needed: Home Health P.T. DC Equipment Recommended: Wheelchair Transport Needs at Discharge: Personal vehicle
--- NOTE | 2024-04-01 17:15 | OT Plan of Care ---
OT Inpatient POC Diagnosis DIAGNOSIS Diagnosis: bowel perforation Chief Complaint: abdominal pain Onset of Chief Complaint: 03/19/2024 MEDICAL/SURGICAL HISTORY Medical History (Updated 03/31/24 @ 07:35 by Audrey Gutierrez CRNA) JS developed symptoms 3 days ago. No acute distress. chest xray was normal Diabetes mellitus History of TIA (transient ischemic attack) Diabetes type 2, uncontrolled (11/10/12) Morbid obesity (12/10/12) Hypertension, essential, benign (06/05/11) GERD (gastroesophageal reflux disease) (12/09/06) Obstructive sleep apnea (12/08/13) Hyperlipidemia (12/15/06) Ovarian cancer (05/27/13) Osteoporosis (06/05/17) Acquired dilation of common bile duct (01/11/16) Nonalcoholic fatty liver disease (08/10/15) Osteoarthritis of knees, bilateral (05/20/13) Foot deformity (07/09/23) Fibromyalgia (02/11/13) Dry eye syndrome (07/09/17) Depression (10/19/14) Anemia (08/02/14) CARLOS A positive (03/01/13) Adrenal adenoma (01/11/16) Surgical History (Updated 03/31/24 @ 18:48 by Latricia Nguyễn DO) Hx of colonoscopy (~02/11/24) History of laparoscopy (~02/12/24) laparoscopic repair of sigmoid colon perforation History of ileostomy (~03/19/24) H/O arthroscopic knee surgery History of elbow surgery H/O bilateral oophorectomy Hx of cholecystectomy (12/15/06) Hx of hysterectomy (12/15/06) Hx of arthroscopy (12/15/06) Assessment and Goals ASSESSMENT Assessment: Pt is a 68 yo Female who was referred for an OT evaluation secondary weakness after post op. Pt verbalizes 7 in pain scale when she is not under medication, and 6 on evaluation due to post op state. She is able to focus and cooperate during evaluation. Pt attempted to bed mobility with difficulty due to pain requiring Mod Assitance to accomplish repositioning. UE strength assessed with strength WNL. PROM was tolerated on R LE with min complain of worsening pain. However, pt complained of worsening pain on LLE, hence mobilization was stopped. Pt tolerated slow changes on bed rest. Pt prior level of function required Assist for functional mobility at home and use of FWW and WC. Pt benefited from home modification recommendations and energy conservation strategies to ensure safe mobility once mobilization is tolerated. Pt remained supine in bed accompanied by her daughter with call button within reach. Pt would like to return home with assitance and continue with HH rehab services. -Activities of Daily Living Improve Upper Extremity Dressing to:: Independent Improve Lower Extremity Dressing to:: Modified Independent Improve Grooming/Hygiene to:: Independent Improve Bathing to:: Modified Independent Improve Toileting to:: Modified Independent OT Inpatient Plan PLAN Treatment Frequency: 1x/day Duration: Until goals are met -Discharge Recommendations Discharge Location: Group Home Facility Support/Services Needed: With assist and Home Health O.T. Recommended Equipment: Raised Toilet Seat, Commode, Grab bars, Shower/bath chair and Adaptive Self Care Devices Transport Needs at Discharge: Personal vehicle Comment: Recommendation for SNF, However pt refuses and would like to continue with HH and family assitance
== END 2024-03-24 15:10 | disposition home health service (06) | DRG 331 ==
LOC: MS3 06:39 → SDS 07:49 → EDSTATUS 09:15 → MS2 14:55 → SUATTDRO 14:55
PROVIDERS: ADMIT Surgery; ATTEND Internal Medicine